=== PATIENT | male | born 1945 | race Caucasian/White ===

== ENCOUNTER 2018-01-04 06:36 | Emergency (ER) | payer MEDICARE, OTHER, SELFPAY ==
[2017-10-09 14:18] VITALS: BMI 22.9
[2018-01-04 06:45] VITALS: BP 135/71; PULSE 91; RESP 28; TEMP 36.6; O2SAT 98; BMI 22.8
--- NOTE | 2018-01-04 06:51 | DI.RAD.S_ITS ---
PROCEDURE: XR CHEST 1V INDICATIONS: short of breath TECHNIQUE: One view of the chest was acquired. COMPARISON: [facility], CR, XR CHEST 2V, 10/06/2017, 12:40. [facility], CR, XR CHEST 1V, 10/09/2017, 9:20. FINDINGS: Surgical changes and devices: None. Lungs and pleura: No pleural effusions or pneumothorax. A calcified granuloma is present at the left lung base. Mediastinum: Mediastinal contours appear normal. Heart size is normal. Bones and chest wall: No suspicious bony lesions. Overlying soft tissues appear unremarkable. IMPRESSION: 1. Left basilar granuloma. No acute cardiopulmonary findings. Dictated by: Lynda Carnes M.D. on 01/04/2018 at 8:17 Approved by: Lynda Carnes M.D. on 01/04/2018 at 8:19
[2018-01-04] MEDS: methylPREDNISolone 125 MG/2 ML VIAL IV (06:52)
[2018-01-04 07:00] VITALS: BP 112/63; PULSE 91; RESP 22; O2SAT 96
--- NOTE | 2018-01-04 07:02 | ED_ITS ---
HPI - SOB/Dyspnea General Chief Complaint: Shortness of Breath/Dyspnea Time Seen by Provider: 01/04/18 06:44 Source: patient Mode of arrival: ambulatory Limitations: no limitations History of Present Illness Patient is a 72-year-old male with a history of COPD on 2 L of O2 at home at baseline here for evaluation of shortness of breath. Patient states that it started last evening at approximately midnight. States he had problems sleeping. No chest pain. 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 Patient states he has been feeling weak at home. No fevers. Related Data Home Medications Medication Instructions Recorded Confirmed albuterol sulfate 2 puff INHALATION QID PRN 10/06/17 10/09/17 albuterol sulfate 3 ml INHALATION QID PRN 10/06/17 10/09/17 alfuzosin 10 mg PO DAILY 10/06/17 10/09/17 olodaterol 2 puff INHALATION QDAY 10/06/17 10/09/17 omeprazole 20 mg PO BID 10/06/17 10/09/17 Previous Rx's Medication Instructions Recorded azithromycin 250 mg PO DAILY #2 tab 10/13/17 oseltamivir [Tamiflu] 75 mg PO BID #4 cap 10/13/17 prednisone 10 mg PO TAPER #32 tab-cap 10/13/17 prednisone 40 mg PO DAILY #10 tab 01/04/18 Allergies Allergy/AdvReac Type Severity Reaction Status Date / Time No Known Drug Allergies Allergy Verified 10/06/17 12:35 Review of Systems Constitutional Denies fatigue, Denies fever(s) and Denies headache(s) ENT Ears, Nose, Mouth, and Throat: Denies headache(s) Cardiovascular Denies chest pain, Denies syncope, Denies palpitations, Reports dyspnea and Reports dyspnea on exertion Respiratory Denies change in phlegm color, Reports cough, Reports dyspnea, Reports dyspnea on exertion and Reports wheezing Gastrointestinal Gastrointestinal: Denies abdominal pain, Denies diarrhea, Denies nausea and Denies vomiting Genitourinary Denies dysuria Musculoskeletal Denies myalgias and Denies arthralgias Integumentary/Breasts Denies lesions, Denies rash and Denies wounds Neurologic Denies confusion, Denies syncope and Denies headache(s) Psychiatric Denies confusion Endocrine Denies fatigue and Denies palpitations Hematologic/Lymphatic Denies easy bleeding and Denies easy bruising Allergic/Immunologic Reports wheezing PFSH Medical History COPD (chronic obstructive pulmonary disease) (Acute) Social History household members: none Smoking Status: Former smoker alcohol intake: current Comment: Reviewed patient's past medical surgical social and family history Exam Initial Vital Signs Initial Vital Signs: Vital Signs Temperature 97.9 F 01/04/18 06:45 Pulse Rate 91 H 01/04/18 06:45 Respiratory Rate 28 H 01/04/18 06:45 Blood Pressure 135/71 H 01/04/18 06:45 Pulse Oximetry 98 01/04/18 06:45 Const General: cooperative, well developed, well groomed and No acute distress Orientation: alert, awake and oriented x3 HENMT Head: normal to inspection and normocephalic Resp Effort & Inspection: not labored, no retractions and tachypneic Auscultation: rhonchi and wheezes Cardio Rate: regular rate Rhythm: regular rhythm Pulses: radial pulses present GI Inspection: normal to inspection Skin Lesions: no lesions Rashes: no rashes Neuro General: alert, awake and oriented x3 Cognition: normal cognition Speech: speech normal Extrem General: normal to inspection and capillary refill normal Psych Appearance: grossly normal and well kempt Course Orders Ordered: ED Orders 01/04/18 Comprehensive Metabolic Panel Stat 01/04/18 06:30 B Type Natriuretic Peptide Stat Complete Blood Count AUTO DIFF Stat Magnesium Stat Procalcitonin Stat Troponin & CK Cardiac Panel Stat 01/04/18 06:50 Consult to Respiratory Therapy Evaluate & Treat EKG-12 Lead Stat 01/04/18 06:51 XR chest 1V Stat 01/04/18 07:25 Lactate (Lactic Acid) Stat 01/04/18 07:35 Blood Culture Stat Discontinued Medications Albuterol/Ipratropium (Duoneb) 3 ml INH NOW ONE Stop: 01/04/18 06:51 Last Admin: 01/04/18 07:16 Dose: 3 ml Methylprednisolone (Solu-Medrol 125 Mg Vial) 125 mg IV NOW ONE Stop: 01/04/18 06:51 Last Admin: 01/04/18 06:52 Dose: 125 mg Vital Signs - 8 hr 01/04/18 06:45 01/04/18 07:22 Temperature 97.9 F Pulse Rate 91 H 86 Respiratory Rate 28 H 22 Blood Pressure 135/71 H Pulse Oximetry 98 96 MDM - SOB/Dyspnea Lab Data Attestation: I reviewed the patient's lab results. Result diagrams: 01/04/18 06:30 01/04/18 Unknown Lab Results 01/04/18 01/04/18 01/04/18 Range/Units 06:30 06:30 06:30 WBC 7.9 (4.5-11.0) X10^3/uL RBC 4.20 L (4.5-5.9) X10^6/uL Hgb 13.0 L (13.5-17.5) g/dL Hct 39.0 L (41-53) % MCV 92.8 (80-100) fL MCH 30.9 (26-34) PG MCHC 33.3 (30-36) % RDW 14.5 (11.6-14.8) % Plt Count 193 (150-400) X10^3/uL Neut % (Auto) 52.2 (50-75) % Lymph % (Auto) 33.8 (25-40) % Coleman % (Auto) 7.6 (3-14) % Eos % (Auto) 5.6 H (2-4) % Baso % (Auto) 0.8 (0-2) % Neut # (Auto) 4100 (2337-3703) /uL Sodium (137-145) mmol/L Potassium (3.4-5.1) mmol/L Chloride (98-107) mmol/L Carbon Dioxide (22-32) mmol/L BUN (9-20) mg/dL Creatinine (0.66-1.25) mg/dL Estimated GFR (>60) mL/min BUN/Creatinine Ratio (6-22) Glucose (80-110) mg/dL Calcium (8.4-10.2) mg/dL Magnesium 2.1 (1.6-2.3) mg/dL Total Bilirubin (0.2-1.3) mg/dL AST (17-59) IU/L ALT (21-72) IU/L Alkaline Phosphatase (38-126) U/L Total Creatine Kinase 134 (55-170) U/L CK-MB (CK-2) 2.65 H (<2.37) ng/mL CK-MB (CK-2) Rel Index 2.0 (1.5-5.0) % Troponin I < 0.012 (0.01-0.034) ng/mL B-Natriuretic Peptide < 100.0 (<100) Total Protein (6.3-8.2) g/dL Albumin (3.5-5.0) g/dL Globulin (1.7-4.1) g/dL Albumin/Globulin Ratio (1.0-2.8) Procalcitonin < 0.05 (<0.5) ng/mL 01/04/18 Range/Units Unknown WBC (4.5-11.0) X10^3/uL RBC (4.5-5.9) X10^6/uL Hgb (13.5-17.5) g/dL Hct (41-53) % MCV (80-100) fL MCH (26-34) PG MCHC (30-36) % RDW (11.6-14.8) % Plt Count (150-400) X10^3/uL Neut % (Auto) (50-75) % Lymph % (Auto) (25-40) % Coleman % (Auto) (3-14) % Eos % (Auto) (2-4) % Baso % (Auto) (0-2) % Neut # (Auto) (1260-7539) /uL Sodium 143 (137-145) mmol/L Potassium 4.1 (3.4-5.1) mmol/L Chloride 105 (98-107) mmol/L Carbon Dioxide 29 (22-32) mmol/L BUN 9 (9-20) mg/dL Creatinine 1.00 (0.66-1.25) mg/dL Estimated GFR > 60.0 (>60) mL/min BUN/Creatinine Ratio 9.0 (6-22) Glucose 114 H (80-110) mg/dL Calcium 9.4 (8.4-10.2) mg/dL Magnesium (1.6-2.3) mg/dL Total Bilirubin 0.4 (0.2-1.3) mg/dL AST 30 (17-59) IU/L ALT 20 L (21-72) IU/L Alkaline Phosphatase 97 (38-126) U/L Total Creatine Kinase (55-170) U/L CK-MB (CK-2) (<2.37) ng/mL CK-MB (CK-2) Rel Index (1.5-5.0) % Troponin I (0.01-0.034) ng/mL B-Natriuretic Peptide (<100) Total Protein 7.3 (6.3-8.2) g/dL Albumin 4.1 (3.5-5.0) g/dL Globulin 3.2 (1.7-4.1) g/dL Albumin/Globulin Ratio 1.3 (1.0-2.8) Procalcitonin (<0.5) ng/mL Imaging Data Chest x-ray: Attestation: I personally reviewed and interpreted this imaging study as follows: My impression: No focal infiltrates Normal size heart No pneumothorax ECG Data Prior ECG tracings: not available for review Interpretation: Sinus rhythm Ventricular rate 80 for Left posterior fascicular block Normal QRS Normal QTC No ST T wave changes MDM Narrative Medical decision making narrative: Patient received steroids and 2 DuoNeb here in the emergency department. He states that he felt much better. Upon re- evaluation his wheezing had completely resolved. He is at his baseline respiratory status. He is not having any fevers no increase in sputum production. He does have a nebulizer at home with also inhalers. Will send home with a couple days of steroids. Patient was given return precautions. He is going to call his primary doctor. He expressed understanding and agreement with plan. Discharge Plan Departure Patient Disposition: Home, Self-Care Clinical Impression: Acute exacerbation of chronic obstructive pulmonary disease (COPD) Instructions: Chronic Obstructive Pulmonary Disease (Alternative Therapy), Chronic Obstructive Pulmonary Disease Activity Restrictions/Additional Instructions: Recommend that you take the steroids as directed. I also recommend that for the next 24 hr you use your nebulizer at home every 4 hr. If you find that you need to use the nebulizer sooner than every 4 hr you need to return to the emergency department for evaluation like we discussed. Call your primary care doctor for a follow-up. Return to the emergency department for any worsening symptoms. Prescriptions: New prednisone 20 mg tablet 40 mg PO DAILY Qty: 10 RF: 0 No Action albuterol sulfate 90 mcg/actuation Hfa Aerosol Inhaler 2 puff Inhalation QID PRN (Reason: Shortness Of Breath) RF: 0 albuterol sulfate 2.5 mg /3 mL (0.083 %) Solution For Nebulization 3 ml Inhalation QID PRN (Reason: Shortness Of Breath) RF: 0 alfuzosin 10 mg Tablet Extended Release 24 Hr 10 mg PO DAILY RF: 0 olodaterol 2.5 mcg/actuation Mist 2 puff Inhalation QDAY RF: 0 omeprazole 20 mg capsule 20 mg PO BID RF: 0 oseltamivir [Tamiflu] 75 mg Capsule 75 mg PO BID Qty: 4 RF: 0 azithromycin 250 mg tablet 250 mg PO DAILY Qty: 2 RF: 0 prednisone 10 mg tablet 10 mg PO TAPER Qty: 32 RF: 0
[2018-01-04 07:05] LABS: Add Manual Diff / Slide Review NO; Basophils Percent Auto 0.8 % (0-2); Eosinophils Percent Auto 5.6 % (2-4); Lymphocytes Percent Auto 33.8 % (25-40); Mean Corpuscular HGB Conc 33.3 % (30-36); Mean Corpuscular Hemoglobin 30.9 PG (26-34); Mean Corpuscular Volume 92.8 fL (80-100); Monocytes Percent Auto 7.6 % (3-14); Neutrophils Absolute Auto 4100 /uL (3000-5900); Neutrophils Percent Auto 52.2 % (50-75); Platelet Count 193 X10^3/uL (150-400); Red Cell Distribution Width 14.5 % (11.6-14.8); White Blood Cell Count 7.9 X10^3/uL (4.5-11.0)
[2018-01-04 07:08] LABS: Creatine Kinase 134 U/L (55-170); Magnesium 2.1 mg/dL (1.6-2.3)
[2018-01-04] MEDS: ALBUTEROL/IPRATROPIUM 3 ML AMPUL INH (07:16)
[2018-01-04 07:21] LABS: Alanine Aminotransferase 20 IU/L (21-72); Albumin 4.1 g/dL (3.5-5.0); Albumin Globulin Ratio 1.3 (1.0-2.8); Alkaline Phosphatase 97 U/L (38-126); Aspartate Aminotransferase 30 IU/L (17-59); Bilirubin Total 0.4 mg/dL (0.2-1.3); Blood Urea Nitrogen 9 mg/dL (9-20); Calcium 9.4 mg/dL (8.4-10.2); Carbon Dioxide 29 mmol/L (22-32); Chloride 105 mmol/L (98-107); Estimated Glomerular Filt Rate > 60.0 mL/min (>60); Globulin 3.2 g/dL (1.7-4.1); Glucose 114 mg/dL (80-110); HEMOLYSIS 16 (0-50); Potassium 4.1 mmol/L (3.4-5.1); Sodium 143 mmol/L (137-145); Total Protein 7.3 g/dL (6.3-8.2)
[2018-01-04 07:21] LABS: Troponin I < 0.012 ng/mL (0.01-0.034)
[2018-01-04 07:22] VITALS: PULSE 86; RESP 22; O2SAT 96
[2018-01-04 07:23] LABS: Creatine Kinase MB 2.65 ng/mL (<2.37)
[2018-01-04 07:26] LABS: B Type Natriuretic Peptide < 100.0 (<100)
[2018-01-04 07:38] LABS: Procalcitonin < 0.05 ng/mL (<0.5)
[2018-01-04 07:45] VITALS: BP 123/61; PULSE 87; RESP 20; O2SAT 96
[2018-01-04 07:56] LABS: Lactate (Lactic Acid) 1.9 mmol/L (0.7-2.1)
[2018-01-04 08:00] VITALS: BP 140/56; PULSE 87; RESP 20; O2SAT 97
[2018-01-04 08:34] VITALS: O2SAT 92
--- NOTE | 2018-01-04 08:35 | PC.NURSE ---
I walked pt out to lobby with a continuous pulse ox on his finger, without oxygen he dropped to 86%, after sitting for a few minutes he popped back up to 94%. pt desats with minimal activity. pt waiting for his son to pick him up.
== END 2018-01-04 08:37 | disposition home or self-care (01) ==
PROVIDERS: Emergency Medicine; Emergency Provider Emergency Medicine
DX: J44.1 Chronic obstructive pulmonary disease with (acute) exacerbation (principal)
CPT/HCPCS: 36415; 36591; 71045; 80053; 82550; 82553; 83605; 83735; 83880; 84145; 84484; 85025; 87040; 93005; 94640; 96374; 99284; 99285; J2930

== ENCOUNTER 2018-01-31 02:30 | Inpatient (IN) | payer MEDICARE, OTHER, SELFPAY ==
[2017-10-09 14:18] VITALS: BMI 22.9
[2018-01-31] VITALS (16 sets, daily range): BP systolic 110–158; BP diastolic 67–82; PULSE 89–126; RESP 16–22; TEMP 36.5–37.1; O2SAT 90–97; BMI 22.9
--- NOTE | 2018-01-31 02:27 | DI.RAD.S_ITS ---
PROCEDURE: XR CHEST 1V INDICATIONS: cough, SOB, hypoxia TECHNIQUE: One view of the chest was acquired. COMPARISON: None. FINDINGS: Surgical changes and devices: None. Lungs and pleura: No pleural effusions or pneumothorax. There is mild hyperinflation. No definite focal infiltrate... Mediastinum: Mediastinal contours appear normal. Heart size is normal. Bones and chest wall: No suspicious bony lesions. Overlying soft tissues appear unremarkable. IMPRESSION: No acute cardiopulmonary pathology. Mild hyperinflation. Dictated by: Ismael Smith M.D. on 01/31/2018 at 9:41 Approved by: Ismael Smith M.D. on 01/31/2018 at 9:41
[2018-01-31] MEDS: methylPREDNISolone 125 MG/2 ML VIAL IV (02:41)
[2018-01-31] MEDS: SODIUM CHLORIDE 0.9% 1,000 ML 150 ML IV ×2 (02:46→20:12)
[2018-01-31 02:49] LABS: Add Manual Diff / Slide Review NO; Basophils Percent Auto 0.7 % (0-2); Eosinophils Percent Auto 3.8 % (2-4); Hematocrit 36.9 % (41-53); Hemoglobin 12.1 g/dL (13.5-17.5); Lymphocytes Percent Auto 41.2 % (25-40); Mean Corpuscular HGB Conc 32.8 % (30-36); Mean Corpuscular Hemoglobin 30.2 PG (26-34); Monocytes Percent Auto 8.2 % (3-14); Neutrophils Absolute Auto 3600 /uL (3000-5900); Neutrophils Percent Auto 46.1 % (50-75); Platelet Count 270 X10^3/uL (150-400); Red Blood Cell Count 4.01 X10^6/uL (4.5-5.9); White Blood Cell Count 7.7 X10^3/uL (4.5-11.0)
[2018-01-31 02:55] LABS: Blood Urea Nitrogen 14 mg/dL (9-20); Calcium 8.7 mg/dL (8.4-10.2); Carbon Dioxide 28 mmol/L (22-32); Chloride 107 mmol/L (98-107); Creatine Kinase 92 U/L (55-170); Estimated Glomerular Filt Rate > 60.0 mL/min (>60); Glucose 121 mg/dL (80-110); HEMOLYSIS < 15 (0-50); Potassium 4.2 mmol/L (3.4-5.1); Sodium 145 mmol/L (137-145)
--- NOTE | 2018-01-31 02:57 | ED_ITS ---
HPI - SOB/Dyspnea General Chief Complaint: Shortness of Breath/Dyspnea Stated Complaint: COPD Time Seen by Provider: 01/31/18 02:32 Source: patient and EMS Mode of arrival: EMS Limitations: no limitations History of Present Illness A 72-year-old male with longstanding history of COPD whom uses 3 L by nasal cannula at home. EMS arrived and found him with pulse ox of 80% on 3 L with multiple signs of respiratory distress. Patient was placed on a non-rebreather and transported for further evaluation and stabilization. He states that he was in his normal state of health until earlier in the day when he started developing increasing shortness of breath. He denies any recent illness such as runny nose, fever or chills. He does have increasing cough which is occasionally productive of yellow sputum. She denies any chest pain nor nausea or vomiting MD Complaint: shortness of breath and cough Onset (ago): hour(s) Severity: moderate Consistency/Duration: constant Relieving factors: oxygen Exacerbating factors: movement, coughing and deep breaths Known history of: COPD Associated symptoms: denies other symptoms Treatment prior to arrival: oxygen and bronchodilator Related Data Home oxygen amount: 3 liters Home Medications Medication Instructions Recorded Confirmed albuterol sulfate 2 puff INHALATION QID PRN 10/06/17 10/09/17 albuterol sulfate 3 ml INHALATION QID PRN 10/06/17 10/09/17 alfuzosin 10 mg PO DAILY 10/06/17 10/09/17 olodaterol 2 puff INHALATION QDAY 10/06/17 10/09/17 omeprazole 20 mg PO BID 10/06/17 10/09/17 Previous Rx's Medication Instructions Recorded azithromycin 250 mg PO DAILY #2 tab 10/13/17 oseltamivir [Tamiflu] 75 mg PO BID #4 cap 10/13/17 prednisone 10 mg PO TAPER #32 tab-cap 10/13/17 prednisone 40 mg PO DAILY #10 tab 01/04/18 Allergies Allergy/AdvReac Type Severity Reaction Status Date / Time No Known Drug Allergies Allergy Verified 10/06/17 12:35 Review of Systems Review of Systems All systems reviewed & are unremarkable except as noted in HPI and below Constitutional Denies chills, Denies fever(s), Denies lethargy and Denies weakness Eyes Denies change in vision, Denies eye discharge, Denies irritation and Denies loss of vision ENT Ears, Nose, Mouth, and Throat: Denies change in voice, Denies neck pain and Denies sore throat Cardiovascular Denies chest pain, Denies irregular heart rhythm, Denies lightheadedness, Denies palpitations, Reports dyspnea, Reports dyspnea on exertion and Denies orthopnea Respiratory Reports cough, Reports dyspnea, Reports dyspnea on exertion and Reports wheezing Gastrointestinal Gastrointestinal: Denies abdominal pain, Denies change in bowel habits, Denies diarrhea, Denies nausea and Denies vomiting Genitourinary Denies hematuria, Denies flank pain, Denies urinary incontinence and Denies urinary urgency Musculoskeletal Denies neck pain Integumentary/Breasts Denies pruritus, Denies erythema, Denies rash and Denies wounds Neurologic Denies confusion, Denies loss of vision and Denies weakness Psychiatric Denies anxiety, Denies confusion, Denies depression, Denies homicidal ideation and Denies suicidal ideation Endocrine Denies palpitations Hematologic/Lymphatic Denies easy bruising Allergic/Immunologic Reports wheezing PFSH Medical History COPD (chronic obstructive pulmonary disease) (Acute) Social History household members: none Smoking Status: Former smoker alcohol intake: current Exam Narrative Exam Narrative: 72-year-old male in respiratory distress with use of accessory muscles, tachypneic and conversational dyspnea Initial Vital Signs Initial Vital Signs: Vital Signs Temperature 98.8 F 01/31/18 02:31 Pulse Rate 126 H 01/31/18 02:31 Respiratory Rate 22 01/31/18 02:31 Blood Pressure 110/77 01/31/18 02:31 Pulse Oximetry 95 01/31/18 02:31 Const General: cooperative, well developed and acute distress Nutritional Appearance: well nourished Orientation: alert, awake, oriented x3 and not confused HENMT Head: normocephalic and atraumatic Ears: external ears normal and TM's normal bilaterally Nose: external nose normal and No nasal discharge Face and sinus: sinuses nontender, face symmetric, no sinus tenderness and No dry mucous membranes Mouth: oral mucosae normal and moist mucous membranes Teeth and gingiva: dentition normal Throat: tonsils normal and uvula midline Eyes General: appearance normal, both eyes and all related structures Eyelids: eyelids normal Conjunctivae: conjunctivae normal Sclera: sclerae normal Pupils: PERRL EOM: EOM intact bilaterally Chest Chest: normal inspection of the chest Resp Effort & Inspection: audible wheezes, cough, labored, nasal flaring, pursed lip breathing, respiratory distress, tachypneic, uses accessory muscles and prolonged expiratory phase Auscultation: diminished lung sounds and rhonchi Cardio Rate: bradycardic Rhythm: regular rhythm GI Inspection: non-distended Palpation: soft, no hepatosplenomegaly, No guarding, No pulsatile mass and No tender Auscultation: normal bowel sounds Back/Spine/Pelvis Back: No CVA tenderness Cervical Spine: cervical ROM normal and No pain with cervical ROM Thoracic/Lumbar Spine: thoracic and lumbar spine normal to inspection Skin General: no rashes or lesions noted, No jaundice and No petechiae Neuro General: alert, oriented x3, gait normal and no focal motor deficits Speech: speech normal Psych Appearance: well kempt Mental Status: mental status grossly normal Attitude: cooperative Thought Content: normal and suicidality Judgment: judgment good Course Decision to Admit Date: 01/31/18 Decision to Admit time: 02:28 Orders Ordered: ED Orders 01/31/18 02:26 Consult to Respiratory Therapy Evaluate & Treat EKG-12 Lead Stat 01/31/18 02:27 XR chest 1V Stat 01/31/18 02:30 B Type Natriuretic Peptide Stat Basic Metabolic Panel Stat Complete Blood Count AUTO DIFF Stat Procalcitonin Stat Troponin & CK Cardiac Panel Stat 01/31/18 02:32 Consult to Respiratory Therapy Evaluate & Treat Arterial Blood Gas Stat EKG-12 Lead Stat 01/31/18 02:44 Blood Culture Stat 01/31/18 02:50 Lactate (Lactic Acid) Stat Sodium Chloride (Normal Saline 0.9%) 1,000 mls @ 150 mls/hr IV CONT RASHEED Last Admin: 01/31/18 02:46 Dose: 150 mls/hr Discontinued Medications Albuterol/Ipratropium (Duoneb) 3 ml INH NOW ONE Stop: 01/31/18 02:27 Albuterol/Ipratropium (Duoneb) 3 ml INH NOW ONE Stop: 01/31/18 02:33 Methylprednisolone (Solu-Medrol 125 Mg Vial) 125 mg IV NOW ONE Stop: 01/31/18 02:27 Last Admin: 01/31/18 02:41 Dose: 125 mg Reevaluation(s) Reevaluation #1: Patient showing marked improvement after a few bronchodilators , Solu-Medrol and antibiotics. Heart right down to the low 100s / upper 90s now Consultations Consultation #1: Dr. Moreland happy to accept this patient into inpatient status Time: 03:45 Vital Signs - 8 hr 01/31/18 02:31 01/31/18 02:48 Temperature 98.8 F 98.8 F Pulse Rate 126 H 126 H Respiratory Rate 22 22 Blood Pressure 110/77 110/77 Pulse Oximetry 95 95 MDM - SOB/Dyspnea Differential Diagnosis Likely acute exacerbation of chronic obstructive airways disease, congestive heart failure, community acquired pneumonia, asthma with exacerbation, pulmonary embolism and other Medical Records Attestation: I reviewed the patient's medical records. Lab Data Attestation: I reviewed the patient's lab results. Result diagrams: 01/31/18 02:30 01/31/18 02:30 Lab Results 01/31/18 01/31/18 01/31/18 Range/Units 02:30 02:30 02:30 WBC 7.7 (4.5-11.0) X10^3/uL RBC 4.01 L (4.5-5.9) X10^6/uL Hgb 12.1 L (13.5-17.5) g/dL Hct 36.9 L (41-53) % MCV 92.0 (80-100) fL MCH 30.2 (26-34) PG MCHC 32.8 (30-36) % RDW 14.0 (11.6-14.8) % Plt Count 270 (150-400) X10^3/uL Neut % (Auto) 46.1 L (50-75) % Lymph % (Auto) 41.2 H (25-40) % Posey % (Auto) 8.2 (3-14) % Eos % (Auto) 3.8 (2-4) % Baso % (Auto) 0.7 (0-2) % Neut # (Auto) 3600 (4286-8016) /uL Sodium 145 (137-145) mmol/L Potassium 4.2 (3.4-5.1) mmol/L Chloride 107 (98-107) mmol/L Carbon Dioxide 28 (22-32) mmol/L BUN 14 (9-20) mg/dL Creatinine 1.00 (0.66-1.25) mg/dL Estimated GFR > 60.0 (>60) mL/min BUN/Creatinine Ratio 14.0 (6-22) Glucose 121 H (80-110) mg/dL Lactate (0.7-2.1) mmol/L Calcium 8.7 (8.4-10.2) mg/dL Total Creatine Kinase 92 (55-170) U/L Troponin I < 0.012 (0.01-0.034) ng/mL B-Natriuretic Peptide 49.9 (<100) Procalcitonin < 0.05 (<0.5) ng/mL 01/31/18 Range/Units 02:50 WBC (4.5-11.0) X10^3/uL RBC (4.5-5.9) X10^6/uL Hgb (13.5-17.5) g/dL Hct (41-53) % MCV (80-100) fL MCH (26-34) PG MCHC (30-36) % RDW (11.6-14.8) % Plt Count (150-400) X10^3/uL Neut % (Auto) (50-75) % Lymph % (Auto) (25-40) % Posey % (Auto) (3-14) % Eos % (Auto) (2-4) % Baso % (Auto) (0-2) % Neut # (Auto) (7277-8761) /uL Sodium (137-145) mmol/L Potassium (3.4-5.1) mmol/L Chloride (98-107) mmol/L Carbon Dioxide (22-32) mmol/L BUN (9-20) mg/dL Creatinine (0.66-1.25) mg/dL Estimated GFR (>60) mL/min BUN/Creatinine Ratio (6-22) Glucose (80-110) mg/dL Lactate 2.4 H (0.7-2.1) mmol/L Calcium (8.4-10.2) mg/dL Total Creatine Kinase (55-170) U/L Troponin I (0.01-0.034) ng/mL B-Natriuretic Peptide (<100) Procalcitonin (<0.5) ng/mL ABG Data ABG results: Attestation: I personally reviewed and interpreted this ABG as follows: Interpretation: respiratory acidosis with metabolic compensation Imaging Data Chest x-ray: My impression: NAP Discharge Plan Departure Patient Disposition: Admitted As Inpatient Clinical Impression: Acute and chronic respiratory failure with hypoxia, COPD with acute exacerbation Admit Date/Time: 01/31/18 03:37 Admit Provider: Francisco Moreland
[2018-01-31 03:08] LABS: Troponin I < 0.012 ng/mL (0.01-0.034)
[2018-01-31 03:18] LABS: B Type Natriuretic Peptide 49.9 (<100)
[2018-01-31 03:27] LABS: Lactate (Lactic Acid) 2.4 mmol/L (0.7-2.1)
[2018-01-31 03:40] LABS: Procalcitonin < 0.05 ng/mL (<0.5)
[2018-01-31 04:01] LABS: HCO3 ABG 27 mmol/L (23-27); Oxygen Saturation ABG 93 % (95-100); PCO2 ABG 50.1 mmHg (35-45); PO2 ABG 73 mmHg (80-105); TCO2 ABG 28 mmol/L (23-27); pH ABG 7.33 (7.35-7.45)
[2018-01-31 04:03] LABS: Fractionated Inspired Oxygen 0.32
--- NOTE | 2018-01-31 04:08 | PC.NURSE ---
saline to continue on floor
--- NOTE | 2018-01-31 05:47 | PC.NURSE ---
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 Pt arrived onto unit at 0355 via stretcher into room 226. Pt able to ambulate from stretcher to bed with SBA, quite short of breath. Pt A&OX4, oriented to call light and high fall risk precautions. Denies pain. VSS, afebrile, O2 sat 95% on 3L NC, which pt states is at his baseline. AE diminished throughout lung smith, Expiratory wheezes more pronounced to middle and upper lobes posteriorly. Has intermittent moist cough with no sputum production at this time. Placed on continuous O2 monitoring for now. BLE edema RLE more than LLE, 1-2+ non pitting edema. Pt states this is his normal at home, no calf tenderness, or redness. States he was supposed to be made an appointment by his PCP to be fitted with compression stockings, which has not happened yet. OOB with SBA, pt using walker, steady gait, quite short of breath ambulating from bed to BR and back. O2 sat decreased to 90% on 3L during ambulation. Once in resting position, pt recovered to 95% after a few minutes. Pt also states that he has a CPAP machine at home that he hasn't been using as he is waiting on a oxygen adapter that is supposed to arrive at his house this Thursday. No other voiced concerns, call light within reach.
[2018-01-31] MEDS: methylPREDNISolone 125 MG/2 ML VIAL 60 MG IV ×3 (06:23→21:33)
[2018-01-31 07:15] LABS: Reflexed Lactate in 2 Hours Y
[2018-01-31 07:49] LABS: Lactate 2HR (Lactic Acid Rflx) 2.3 mmol/L (0.7-2.1)
--- NOTE | 2018-01-31 08:34 | P.HP_ITS ---
History of Present Illness Date Patient Seen: 01/31/18 Time Patient Seen: 08:28 Chief complaint: COPD Narrative: This very pleasant gentleman was admitted from home early this morning with history of acute-onset shortness of breath he went to bed feeling fairly okay knees usual baseline level but in the middle of the night when he turned over from 1 side to the other is suddenly became short of breath and could not get his breath he tried getting up sitting up using his nebulizer but the things can get any better and so he called the EMS and came to the ER He gives a history of being in the hospital 3 or 4 times within the last year where is prior to coming up from [facility] [place] where he used to get attacks once a year Nicolette is this and it has become more frequent since he has been up here He normally used to drive self around but lately can't even drive much to get his groceries [id number] has some with that He denies any fever chills rigors but reports bringing up purulent sputum on and off; he had influenza type a and type B as well as pneumonia in October of this year since then he has not really recovered he uses nebulized bronchodilators at least 3 4 times a day now he also has a steroid inhalers Patient History Medical History COPD (chronic obstructive pulmonary disease) (Acute) Bilateral leg cramps (Acute) Chronic anemia (Acute) Essential tremor (Acute) Surgical History H/O sinus surgery (Acute) Status post right foot surgery (Acute) Family & Social History Family History: Reviewed 01/31/18 by Keira Hernandes MD Social History: household members none Prior Living Arrangements House Safety & Behavioral: Feels Safe in Current Yes Environment Been Physically Hurt or No Threatened By a Person Suicidal Ideation Description None Suicide Plan Description No Plan Tobacco & Substance use: Tobacco type cigarettes Smoking Status Former smoker alcohol intake current alcohol intake frequency holiday/special occasion Substance Use Type does not use Meds Home Medications Medication Instructions Recorded Confirmed Type albuterol sulfate 2 puff INHALATION QID PRN 10/06/17 01/31/18 History albuterol sulfate 3 ml INHALATION QID PRN 10/06/17 01/31/18 History alfuzosin 10 mg PO DAILY 10/06/17 01/31/18 History olodaterol 2 puff INHALATION QDAY 10/06/17 01/31/18 History omeprazole 20 mg PO BID 10/06/17 01/31/18 History azithromycin 250 mg PO DAILY PRN 01/31/18 01/31/18 History magnesium 250 mg PO DAILY 01/31/18 01/31/18 History potassium chloride 20 meq PO DAILY 01/31/18 History prednisone 10 mg PO DAILY PRN 01/31/18 01/31/18 History Allergies Allergy/AdvReac Type Severity Reaction Status Date / Time [id number]-Swr Reductase Allergy Intermediate Cramping Verified 01/31/18 04:10 Inhibitor of the Muscles Review of Systems Review of Systems Does not have any cardiac history and 12 point review of the other systems negative for acute symptoms Exam Vital Signs (past 8 hours): - 01/31/18 02:31 01/31/18 02:48 01/31/18 04:15 Temperature 98.8 F 98.8 F 98.2 F Pulse Rate 126 H 126 H 102 H Respiratory Rate 22 22 20 Blood Pressure 110/77 110/77 135/71 H Pulse Oximetry 95 95 95 01/31/18 04:30 01/31/18 05:10 01/31/18 05:15 Temperature Pulse Rate Respiratory Rate Blood Pressure Pulse Oximetry 95 90 L 95 Oxygen Delivery Method Nasal Cannula Oxygen Flow Rate 3 Const General: cooperative, healthy appearing, comfortable and well developed Orientation: alert, awake and oriented x3 HENMT Head: normal to inspection Nose: external nose normal Face and sinus: normal facial exam Mouth: oral mucosae normal Eyes General: appearance normal, both eyes and all related structures Eyelids: eyelids normal Conjunctivae: conjunctivae normal Sclera: sclerae normal Pupils: PERRL EOM: EOM intact bilaterally Neck Neck: normal visual inspection and No JVD Thyroid: thyroid normal Resp Effort & Inspection: normal respiratory effort, able to speak in complete sentences and no respiratory distress Auscultation: clear to auscultation bilaterally and bronchovesicular breath sounds Cardio Rate: regular rate Rhythm: regular rhythm Heart Sounds: S1 normal and S2 normal GI Inspection: normal to inspection Palpation: soft and no hepatosplenomegaly Skin General: no rashes or lesions noted Neuro General: alert, awake, oriented x3 and no meningeal signs Cranial Nerves: CN's II-XI intact bilaterally Cognition: normal cognition Speech: speech normal Motor: muscle tone normal throughout Extrem Other: nat 1+ pitting edema Psych Appearance: grossly normal Mood: congruent mood Attitude: cooperative Thought Content: normal Judgment: judgment good Objective Labs Result Diagrams: 01/31/18 02:30 01/31/18 02:30 Labs: Laboratory Results - last 24 hr 01/31/18 01/31/18 01/31/18 02:30 02:30 02:30 WBC 7.7 RBC 4.01 L Hgb 12.1 L Hct 36.9 L MCV 92.0 MCH 30.2 MCHC 32.8 RDW 14.0 Plt Count 270 Neut % (Auto) 46.1 L Lymph % (Auto) 41.2 H Bee % (Auto) 8.2 Eos % (Auto) 3.8 Baso % (Auto) 0.7 Neut # (Auto) 3600 ABG pH ABG pCO2 ABG pO2 ABG HCO3 ABG Total CO2 ABG O2 Saturation ABG Base Excess FiO2 Sodium 145 Potassium 4.2 Chloride 107 Carbon Dioxide 28 BUN 14 Creatinine 1.00 Estimated GFR > 60.0 BUN/Creatinine Ratio 14.0 Glucose 121 H Lactate Calcium 8.7 Total Creatine Kinase 92 Troponin I < 0.012 B-Natriuretic Peptide 49.9 Procalcitonin < 0.05 01/31/18 01/31/18 01/31/18 02:47 02:50 07:00 WBC RBC Hgb Hct MCV MCH MCHC RDW Plt Count Neut % (Auto) Lymph % (Auto) Bee % (Auto) Eos % (Auto) Baso % (Auto) Neut # (Auto) ABG pH 7.33 L ABG pCO2 50.1 H ABG pO2 73 L ABG HCO3 27 ABG Total CO2 28 H ABG O2 Saturation 93 L ABG Base Excess 1.0 FiO2 0.32 Sodium Potassium Chloride Carbon Dioxide BUN Creatinine Estimated GFR BUN/Creatinine Ratio Glucose Lactate 2.4 H 2.3 H Calcium Total Creatine Kinase Troponin I B-Natriuretic Peptide Procalcitonin Assessment & Plan Plan: Assessment/Plan Narrative: 1. Acute hypoxic respiratory failure O2 supplement currently on nasal cannula normally used to 2 L but lately has increased to 3 L continuously 24 hr prior to this admission 2. Acute hypercapnic respiratory failure 3. O2 dependent COPD with acute exacerbation possibly infective continue bronchodilators the systemic steroids antibiotics 4 Possible cor pulmonale with right heart failure and leg edema Quality VTE Deep Vein Thrombosis/Pulmonary Embolism Present on Admission: No
[2018-01-31] MEDS: levoFLOXacin 750 MG/150 ML PIGGYBACK 100 MG IV (09:12)
[2018-01-31] MEDS: DOCUSATE 100 MG CAPSULE PO ×2 (09:13→20:19)
[2018-01-31] MEDS: ENOXAPARIN 40 MG/0.4 ML SYRINGE SUBCUT (09:13)
[2018-01-31] MEDS: ALBUTEROL/IPRATROPIUM 3 ML AMPUL INH ×2 (11:43→17:40)
--- NOTE | 2018-01-31 14:12 | PC.NURSE ---
Am shift Pt reporting significant improvement to air movement this shift. Decreased SOB, still has extended recovery with any activity. Continues on 3L via NC Rt into see Pt t/o shift. Moving air much better after treatments, Spo2 on 3L is 94+% The 3L is also home regime.NS @ 150 to R FA, Occasioanl cough noted. Afebrile.
[2018-01-31] MEDS: CALCIUM CARBONATE 500 MG TAB 1000 MG PO ×2 (14:44→20:48)
--- NOTE | 2018-01-31 15:33 | CM.DANOTE ---
Patient is a 72 year old male who was admitted on 01/31/18 for COPD. Pt has MCR for insurance and [facility] EMR was reviewed. Per MD, pt currently on increased oxygen and not stable for d/c today. SW met bedside with pt and explained role and pt confirms that he lives at home in [place] alone although he has two local sons who live in [place] and one son works in [place] and they provide assist whenever needed. Pt is typically independent at baseline and has home oxygen through [facility] although pt states he has become increasingly in need of assist from family lately due to fatigue. Pt states his son Florentin is his DPOA and Florentin's has been helping the pt with grocery shopping and light cleaning. SW inquired about other supportive services and pt states he has begun considering private pay ski lift attendant and information on Life Alert due to his recent hospitalizations for COPD exacerbation and pneumonia. Plan: SW to follow closely for further identified discharge planning needs and likely need for PT eval to determine if pt is safe for return home alone when medically stable. SW to follow tomorrow to provide the pt with community resources for housekeeping and Life Alert. TANNER Vences Discharge Planning/Care Management CM Discharge Assessment Start: 01/31/18 15:24 Freq: Status: Active Protocol: Document 01/31/18 15:24 (Rec: 01/31/18 15:27 [id number]) Discharge Planning Assessment Assigned Acetaldehyde Converter Operator TANNER DPOA/Assigned Designee Name [address] Advance Directives? Yes Advance Directives on File No History Provided By Patient Medical Record Has Patient been admitted in last 30 No days? Prior Living Arrangements House Household Members none Type of transporation used prior to Drives own vehicle admit Comment Pt has needed increased help with ADL's but typically was independent before recent decline. Independent with ADL's Yes Is patient alert and oriented? Yes Needs Assistance With Home Chores / Shopping Caregiver for Another No Community Services used prior to Oxygen Therapy admission: Comment Pt has home oxygen through [facility] DME Already Rented / Owned FWW / Walker Cane Oxygen Comment D/C needs unclear at this time . Comment Pt has had recent decline in his independence and has required increased support. Discharge Plan Home Transportation Arrangement Wesley Aldana Updated in Patient Room with Yes name and ext. # of Acetaldehyde Converter Operator Review Status In Process Next Review Type Continued Stay Review
[2018-02-01] VITALS (9 sets, daily range): BP systolic 119–145; BP diastolic 52–78; PULSE 74–102; RESP 14–20; TEMP 36.3–36.6; O2SAT 94–97
[2018-02-01] MEDS: SODIUM CHLORIDE 0.9% 1,000 ML 150 ML IV (00:08)
--- NOTE | 2018-02-01 02:03 | PC.NURSE ---
Addendum entered by Deana Villanueva R.N. 02/01/18 04:27: Blood culture came back positive for staph. notified and new order for vancomycin ordered. Pt put on contact precautions Original Note: shift note met with pt at start of shift. AOx3. Pain 0/10. States he has had poor sleep and continues to have an intermittent cough with mild improvement. No sputum noted at this time. 96% on 2L nasal canula when awake. Coarse wheezes on expiration bilaterally throughout. Call light within reach.
[2018-02-01 03:25] LABS: Enterococcus species Not Detected (Not Detect); Listeria monocytogenes Not Detected (Not Detect); Methicillin-resistant gene Detected (Not Detect); Streptococcus agalactiae (Gr B Not Detected (Not Detect); Streptococcus species Not Detected (Not Detect)
[2018-02-01 03:26] LABS: Acinetobacter baumannii Not Detected (Not Detect); Candida albicans Not Detected (Not Detect); Candida glabrata Not Detected (Not Detect); Candida krusei Not Detected (Not Detect); Candida parapsilosis Not Detected (Not Detect); Candida tropicalis Not Detected (Not Detect); E. coli Not Detected (Not Detect); Enterobacter cloacae complex Not Detected (Not Detect); Enterobacteriaceae species Not Detected (Not Detect); Haemophilus influenzae Not Detected (Not Detect); Neisseria meningitidis Not Detected (Not Detect); Proteus species Not Detected (Not Detect); Pseudomonas aeruginosa Not Detected (Not Detect); Serratia marcescens Not Detected (Not Detect); Streptococcus pneumonia Not Detected (Not Detect); Streptococcus pyogenes (Gr A) Not Detected (Not Detect)
[2018-02-01 03:28] LABS: Staphylococcus species Detected (Not Detect)
[2018-02-01] MEDS: VANCOMYCIN 1,500 MG in SODIUM CHLORIDE 0.9% 500 ML 333.333 ML IV (04:33)
[2018-02-01 05:00] LABS: Add Manual Diff / Slide Review NO; Basophils Percent Auto 0.7 % (0-2); Hematocrit 34.9 % (41-53); Lymphocytes Percent Auto 9.9 % (25-40); Mean Corpuscular HGB Conc 34.3 % (30-36); Mean Corpuscular Volume 90.4 fL (80-100); Monocytes Percent Auto 2.4 % (3-14); Neutrophils Absolute Auto 7200 /uL (3000-5900); Platelet Count 262 X10^3/uL (150-400); Red Blood Cell Count 3.86 X10^6/uL (4.5-5.9); Red Cell Distribution Width 14.2 % (11.6-14.8); White Blood Cell Count 8.3 X10^3/uL (4.5-11.0)
[2018-02-01 05:13] LABS: BUN Creatinine Ratio 16.7 (6-22); Blood Urea Nitrogen 15 mg/dL (9-20); Carbon Dioxide 30 mmol/L (22-32); Chloride 109 mmol/L (98-107); Estimated Glomerular Filt Rate > 60.0 mL/min (>60); Glucose 139 mg/dL (80-110); HEMOLYSIS < 15 (0-50); Potassium 4.1 mmol/L (3.4-5.1); Sodium 147 mmol/L (137-145)
[2018-02-01] MEDS: methylPREDNISolone 125 MG/2 ML VIAL 60 MG IV (06:12)
[2018-02-01] MEDS: TAMSULOSIN 0.4 MG CAPSULE PO (08:59)
[2018-02-01] MEDS: ENOXAPARIN 40 MG/0.4 ML SYRINGE SUBCUT (08:59)
[2018-02-01] MEDS: DOCUSATE 100 MG CAPSULE PO ×2 (09:00→21:02)
[2018-02-01] MEDS: levoFLOXacin 750 MG/150 ML PIGGYBACK 100 MG IV (09:00)
[2018-02-01] MEDS: ALBUTEROL/IPRATROPIUM 3 ML AMPUL INH ×3 (09:00→19:29)
[2018-02-01] MEDS: CALCIUM CARBONATE 500 MG TAB 1000 MG PO (09:01)
--- NOTE | 2018-02-01 11:17 | CM.DPC ---
DCP/continued: Reviewed chart. Patient remains hospitalized with COPD exacerbation and MRSA in blood. Met with patient explained CM/SW role. Patient resting comfortably in bed with [address] at time of visit. Patient alert and oriented and reports that he resides alone in [place]. Patient reports that he currently does not use any DME for ambulation but does use home 02 provided by [facility]. Patient drives locally on regular basis. Patient has neighbors and friends that assist with meals on occasion. Patient denies any d/c planning needs at this time. Spoke with RN and patient re: PT/OT evaluations. Both aware and agreeable. Asked MD and both obtained and are pending. Patient reports that previously he went to pulmonary rehab as outpatient for management of his COPD. Unfortunately, his visits with insurance ran until he can be seen by pulmonary. Patient has appointment in February in [place]. Patient hopes to be able to continue outpatient therapy for COPD after he establishes with pulmonary. Patient has Medicare prime but reports that the [facility] DPOA is patient's youngest son Florentin. Patient aware that CM team will continue to follow for d/c planning needs. White board in room updated. P: Anticipate home when medically stable. PT/OT evaluations currently pending. TANNER Hilliard
--- NOTE | 2018-02-01 12:20 | OT.IP.TRT ---
Occupational Therapy Treatment Note M3 OT- IP Subjective and Pain Start: 02/01/18 12:17 Freq: Status: Active Protocol: Document 02/01/18 12:18 [facility] (Rec: 02/01/18 12:20 [facility] [email or web address]) OT- Subjective Occupational Therapy Visit Type Type Administrative Note Visit Start Time 12:00 Visit Stop Time 12:15 Total Visit Minutes 15 Notes Pt just finished with nursing for a shower and now eating. Able to get information for pt regarding home set up and equipment at home. Therefore to see pt tomorrow for OT eval .
[2018-02-01] MEDS: SODIUM CHLORIDE 0.9% 1,000 ML 50 ML IV (12:40)
--- NOTE | 2018-02-01 12:48 | PT.IPTN ---
Physical Therapy Treatment Note Subjective Physical Therapy Visit Type Type Patient Refusal Physical Therapy Visit Comments Patient Comments Pt reports being too tired, just wants to rest today.
--- NOTE | 2018-02-01 13:43 | OT.IP.EVAL ---
Current Diagnoses Chronic obstructive pulmonary disease with (acute) exacerbation (01/31/18) Past Medical History (Last Reviewed 01/31/18 @ 08:31 by Keira Hernandes MD) COPD (chronic obstructive pulmonary disease) (Acute) Bilateral leg cramps (Acute) Chronic anemia (Acute) Essential tremor (Acute) Surgical History (Last Reviewed 01/31/18 @ 08:31 by Keira Hernandes MD) H/O sinus surgery (Acute) Status post right foot surgery (Acute) Occupational Therapy Inpatient Evaluation/Re-Eval M1 PT/OT-IP Prior Functional Status Start: 02/01/18 12:17 Freq: NEEDED Status: Active Protocol: Document 02/01/18 13:22 [facility] (Rec: 02/01/18 13:42 [facility] [id number]) Medical Review Prior Functional Status Medical History Reviewed Yes Diet/Fluid Consistency Regular Thin Liquids Communication ind. Mobility and Gait Pt states independent with no device and occasionally used his cane, pt would heavily lean on shopping carts when shopping. Activities of Daily Living and IADL's Pt's daughter in law assisting and pt looking to hire sketch liner. Prior Functional Level (Other details) Pt states at home uses 3L of o2. Social History Household Members none Living Arrangements House Number of Floors (Floors) One Floor Number of Stairs To Enter/Railing? One step to porch with rails and threshold to get into the house. Home Environment Standard Height Toilet Tub/Shower Doors Home Equipment Straight Cane Construction Grip Employment Status Retired Additional Social History Comment Son and DIL also lives in [place] and assist when they can. RIZWAN is a school bus operator and will not be able to assist as much once school starts. Pt also looking into getting Life Alert. Pt looking into pulmonary rehab but awaiting appointment with pulmonogist next month. M2 OT-IP Current Condition Start: 02/01/18 12:17 Freq: Status: Active Protocol: Document 02/01/18 13:22 [facility] (Rec: 02/01/18 13:42 [facility] [email or web address]) Occupational Therapy Current Condition Current Condition Evaluation Date 02/01/18 Treatment Diagnosis COPD Diagnosis Onset Date 01/31/18 M3 OT- IP Subjective and Pain Start: 02/01/18 12:17 Freq: Status: Active Protocol: Document 02/01/18 13:22 [facility] (Rec: 02/01/18 13:42 [facility] [email or web address]) OT- Subjective Occupational Therapy Visit Type Type Re-Evaluation Visit Start Time 12:35 Visit Stop Time 13:05 Total Visit Minutes 30 Notes Approached pt after lunch and agreed to get up and complete OT eval. M4 OT- IP ADL's Start: 02/01/18 12:17 Freq: Status: Active Protocol: Document 02/01/18 13:22 [facility] (Rec: 02/01/18 13:42 [facility] [email or web address]) OT HHE-[id number]-[id number] General Evaluation Self-Feeding Ability Independent OT ADL-Grooming General Evaluation Grooming Ability Standby Assistance Areas Needing Assistance Retrieving/Set-up of Grooming Items Comments OT Grooming Comments ABle ot stand with FWW for all grooming needs O2 on 2L from 89-94%. Pt getting SOb and only able to tolerate standing for 4 minutes before having to sit down. OT ADL-Oral Care General Eval Oral Care Ability Independent OT ADL-Dressing Comments OT Dressing Comments Not able to assess, AUTOMOTIVE PARTS INTERPRETER states assisted pt to put on his socks after the shower. OT ADL-Bathing Comments OT Bathing Comments Per AUTOMOTIVE PARTS INTERPRETER, pt had to sit while showering and needing assist for back and legs as pt getting tired. Pt states wears his O2 for showering at home. Discussed due to tight and small space of tub/shower with doors and having a bathtub shelf/seat may be beneficial to help conserve his energy while showering. M5 OT- IP IADL's Start: 02/01/18 12:17 Freq: Status: Active Protocol: Document 02/01/18 13:22 [facility] (Rec: 02/01/18 13:42 [facility] [email or web address]) OT-Instrumental Activities of Daily Living Deficits IADL Deficits Identified No Deficits Home Safety Awareness Awareness of Need for Assistance at Home Good Awareness Ability to Problem Solve Emergency Able to Problem Solve Situations Home Safety Comments Spoke of getting a tall stool in the kitchen use during meals or dishes. Meal Preparation Meal Preparation Comments Pt goes out to eat or has frozen meals and snacks throughout the day. Tower Switch Operator Tower Switch Operator Comments Family assisting. M6 OT- IP Functional Cognition Start: 02/01/18 12:17 Freq: Status: Active Protocol: Document 02/01/18 13:22 [facility] (Rec: 02/01/18 13:42 [facility] [email or web address]) Cognitive Factors Limiting Selfcare Function Cognitive Ability Level of Alertness Alert Patient Orientation Name Age Birthday Month Date Year Day of Week Place Situation Attention Span Ability Capable of Focused Attention Capable of Sustained Attention Ability to Follow Commands Able to Follow Multi-Step Commands Memory Description No Deficits Noted Safety Awareness Underestimates Need for Assistance Problem Solving Ability Needs Assist to Identify Solutions Cognitive Comments Cognitive Assessment Comments Pt needing education for reminders and information for energy conservation. Pt tends to want to complete tasks versus taking a break before getting too tired. OT- Vision and Hearing OT- Hearing Assessment OT- Hearing Assessment WFL M7 OT- IP Mobility and Balance Start: 02/01/18 12:17 Freq: Status: Active Protocol: Document 02/01/18 13:22 [facility] (Rec: 02/01/18 13:42 [facility] [email or web address]) OT-Transfer Assessment Sit to and From Stand Sit to and from Stand Standby Assistance Transfers Transfer Ability Standby Assistance Technique Transfer Destination Chair Devices Transfer Assistive Devices Gait Belt Front Wheeled Walker Comments Mobility Comments MOD I with walker and SBA while pt walking backwards and dragging FWW, pt states does not need to use FWW. Please see PT eval for most appropriate device for pt . OT- Balance Assessment Sitting Balance and Reactions Static Sitting Balance Ability Normal Dynamic Sitting Balance Ability Normal Standing Balance and Reactions Static Standing Balance Ability Normal M8 OT- IP Objective Assessments Start: 02/01/18 12:17 Freq: Status: Active Protocol: Document 02/01/18 13:22 [facility] (Rec: 02/01/18 13:42 [facility] [email or web address]) OT Gross Range of Motion Upper Extremity Range of Motion Assessment Within Functional Limits OT Strength Upper Extremity Strength Assessment Within Functional Limits OT-Muscle Tone Assessment Muscle Tone WNL Yes M9 OT- IP Assessment and Plan Start: 02/01/18 12:17 Freq: Status: Active Protocol: Document 02/01/18 13:22 [facility] (Rec: 02/01/18 13:42 [facility] [email or web address]) OT Summary Assessment and Plan Potential Rehabilitation Potential Excellent Analytic Complexity at Evaluation Low Summary OT Impairments Strength Balance Functional Mobility Toileting Bathing Progress Towards Goals Progressing Toward Goals Slow Progress due to Activity Tolerance Assessment Summary Pt low complexity and main barrier in SOB and now having an infection and tiring easily . Pt Goals Grooming Goal Independent Dressing Goal Independent Toileting Goal Independent Bathing Goal Standby Assistance Toilet Transfer Goal Independent Shower Transfer Goal Independent Patient/Caregiver Education Goal Demonstrate Energy Conservation and Pacing Days to Meet Goals 5 Frequency of Treatment Frequency Of Treatment Once a Day Treatment Plan OT Treatment Plan ADL Training IADL Training Patient/Family Education Discharge Planning Other Treatment Recommendations and Next Pt to state energy Treatment Focus conservation strategies learned and what to incorporate at home. Discharge Recommendations OT Discharge Recommendations Home with Assistance Other Discharge Recommendations Pulmonary Rehab Home Equipment Needs bathtub seat, FWW
--- NOTE | 2018-02-01 13:53 | P.PN_ITS ---
Subjective Date Patient Seen: 02/01/18 Time Patient Seen: 10:53 Interval history: ADMITTED WITH ACUTE ONSET SHORTNESS OF BREATH WHILE TURNING OVER IN BED IN THE MIDDLE THE NIGHT HAS UNDERLYING COPD HE IS ACUTE EXACERBATION OF THE BECOME MORE FREQUENT 1 SINCE HE HAS BEEN HERE FROM [facility] TODAY HE FEELS BETTER FAR BREATHING IS CONCERNED DOES NOT BRING UP ANY PHLEGM HOWEVER HIS BLOOD HAS GROWN STAPH COCCUS SPECIES IN 1 OF THE 2 BOTTLES STILL WAITING FOR THE IDENTITY Exam Vital Signs (past 8 hours): - 02/01/18 07:00 02/01/18 07:40 02/01/18 09:03 Temperature 97.5 F L Pulse Rate 86 Respiratory Rate 14 Blood Pressure 142/78 H Pulse Oximetry 96 94 96 02/01/18 12:48 Temperature 97.6 F Pulse Rate 102 H Respiratory Rate 16 Blood Pressure 119/52 L Pulse Oximetry 97 Fraction of Inspired Oxygen 32 Oxygen Delivery Method Nasal Cannula Oxygen Flow Rate 2 Const General: cooperative, healthy appearing, comfortable and well developed Orientation: alert, awake and oriented x3 HENMT Head: normal to inspection Ears: hearing grossly normal bilaterally Nose: external nose normal Face and sinus: normal facial exam Mouth: oral mucosae normal Eyes Eyelids: eyelids normal Conjunctivae: conjunctivae normal Sclera: sclerae normal Pupils: PERRL EOM: EOM intact bilaterally Neck Neck: normal visual inspection, full ROM and No JVD Thyroid: thyroid normal Resp Effort & Inspection: normal respiratory effort, able to speak in complete sentences, no respiratory distress and no use of accessory muscles Auscultation: bronchovesicular breath sounds and rhonchi (SCATTERED NURA) Cardio Rate: regular rate Rhythm: regular rhythm Heart Sounds: S1 normal and S2 normal GI Inspection: normal to inspection Palpation: soft and no hepatosplenomegaly Skin General: no rashes or lesions noted Neuro General: alert, awake and oriented x3 Cranial Nerves: CN's II-XI intact bilaterally Cognition: normal cognition Speech: speech normal Gait: normal gait Motor: muscle tone normal throughout Extrem General: normal to inspection and full ROM Psych Affect: irritable affect Attitude: cooperative Thought Process: normal Thought Content: normal Judgment: judgment good Objective Labs Result Diagrams: 02/01/18 04:46 02/01/18 04:46 Labs: Laboratory Results - last 24 hr 01/31/18 02/01/18 02/01/18 02:50 04:46 04:46 WBC 8.3 RBC 3.86 L Hgb 12.0 L Hct 34.9 L MCV 90.4 MCH 31.0 MCHC 34.3 RDW 14.2 Plt Count 262 Neut % (Auto) 87.0 H D Lymph % (Auto) 9.9 L D [place] % (Auto) 2.4 L Eos % (Auto) 0.0 L Baso % (Auto) 0.7 Neut # (Auto) 7200 H Sodium 147 H Potassium 4.1 Chloride 109 H Carbon Dioxide 30 BUN 15 Creatinine 0.90 Estimated GFR > 60.0 BUN/Creatinine Ratio 16.7 Glucose 139 H Calcium 9.0 A. baumannii (PCR) Not detected Lupe albicans (PCR) Not detected C. glabrata (PCR) Not detected C. krusei (PCR) Not detected C. parapsilosis (PCR) Not detected C. tropicalis (PCR) Not detected Enterobacteriac sp PCR Not detected E. cloacae complex PCR Not detected Enterococcus sp PCR Not detected E. coli (PCR) Not detected H. influenzae (PCR) Not detected Klebsiella oxytoca PCR Not detected Klebsiella pneumoniae Not detected List. monocytogenes PCR Not detected N. meningitidis (PCR) Not detected Proteus species (PCR) Not detected Serratia marcescens PCR Not detected Staphylococcus sp PCR Detected H Staph aureus (PCR) Not detected mecA-Methicil Res Gene Detected H Streptococcus sp PCR Not detected Group A Strep (PCR) Not detected Strep agalactiae (PCR) Not detected Strep pneumoniae (PCR) Not detected P. aeruginosa (PCR) Not detected [place]/B-Vanco Res Genes Not Reportable KPC-Carbap Res Gene PCR Not Reportable Assessment & Plan Plan: Assessment/Plan Narrative: 1. Acute hypoxic respiratory failure O2 supplement currently on nasal cannula normally used to 2 L but lately has increased to 3 L continuously 24 hr prior to this admission 2. Acute hypercapnic respiratory failure AT ADMISSION IMPROVING 3. O2 dependent COPD with acute exacerbation possibly infective continue bronchodilators SYSTEMIC STEROIDS and LEVAQUIN 4 Possible cor pulmonale with right heart failure and leg edema CONTINUOUS O2 RX SHOULD HELP 5.Staph Blood cult pos in one of two Bottles Identity pending started VANC for the same till making sure pathogenic or Not Time Spent With Patient Time with patient: 25 - 35 minutes Quality VTE Deep Vein Thrombosis/Pulmonary Embolism Present on Admission: No
--- NOTE | 2018-02-01 14:53 | PC.NURSE ---
DENIES ANY PAIN OR DISCOMFORT. SITTING UP IN CHAIR AT BEDSIDE. DENIES SOB AT THIS TIME. IV FLUIDS DECREASED TO 50ML/HR. OXYGEN SATS 96% 2L VIA CANNULA.
[2018-02-01] MEDS: ACETAMINOPHEN 325 MG TABLET 650 MG PO (15:50)
[2018-02-01] MEDS: OMEPRAZOLE 20MG CAPS 1 EACH PO (17:05)
[2018-02-01] MEDS: VANCOMYCIN 1,000 MG/200 ML FROZ.PIGGY 200 MG IV (17:06)
[2018-02-01] MEDS: BUDESONIDE 0.5 MG/2 ML NEB INH (19:29)
[2018-02-02] VITALS (15 sets, daily range): BP systolic 115–142; BP diastolic 66–78; PULSE 58–92; RESP 14–20; TEMP 36.4–37.3; O2SAT 95–98
[2018-02-02] MEDS: VANCOMYCIN 1,000 MG/200 ML FROZ.PIGGY 200 MG IV (04:25)
[2018-02-02 05:36] LABS: Add Manual Diff / Slide Review NO; Basophils Percent Auto 0.4 % (0-2); Eosinophils Percent Auto 0.1 % (2-4); Hematocrit 32.9 % (41-53); Hemoglobin 11.3 g/dL (13.5-17.5); Lymphocytes Percent Auto 14.5 % (25-40); Mean Corpuscular HGB Conc 34.5 % (30-36); Mean Corpuscular Hemoglobin 31.3 PG (26-34); Mean Corpuscular Volume 90.9 fL (80-100); Monocytes Percent Auto 7.4 % (3-14); Neutrophils Absolute Auto 6400 /uL (3000-5900); Neutrophils Percent Auto 77.6 % (50-75); Platelet Count 248 X10^3/uL (150-400); Red Blood Cell Count 3.62 X10^6/uL (4.5-5.9); Red Cell Distribution Width 14.5 % (11.6-14.8); White Blood Cell Count 8.3 X10^3/uL (4.5-11.0)
[2018-02-02] MEDS: OMEPRAZOLE 20MG CAPS 1 EACH PO ×2 (05:36→16:57)
[2018-02-02 05:40] LABS: BUN Creatinine Ratio 18.9 (6-22); Blood Urea Nitrogen 17 mg/dL (9-20); Calcium 8.7 mg/dL (8.4-10.2); Carbon Dioxide 30 mmol/L (22-32); Chloride 109 mmol/L (98-107); Estimated Glomerular Filt Rate > 60.0 mL/min (>60); Glucose 114 mg/dL (80-110); HEMOLYSIS < 15 (0-50); Potassium 3.4 mmol/L (3.4-5.1); Sodium 146 mmol/L (137-145)
[2018-02-02] MEDS: ALBUTEROL/IPRATROPIUM 3 ML AMPUL INH ×3 (07:25→17:46)
[2018-02-02] MEDS: BUDESONIDE 0.5 MG/2 ML NEB INH ×2 (07:25→17:46)
[2018-02-02] MEDS: predniSONE 20 MG TABLET 40 MG PO (09:13)
[2018-02-02] MEDS: DOCUSATE 100 MG CAPSULE PO ×2 (09:14→20:36)
[2018-02-02] MEDS: ENOXAPARIN 40 MG/0.4 ML SYRINGE SUBCUT (09:15)
[2018-02-02] MEDS: TAMSULOSIN 0.4 MG CAPSULE PO (09:15)
[2018-02-02] MEDS: CYANOCOBALAMIN (VITAMIN B-12) 500 MCG TABLET 1000 MCG PO (09:16)
--- NOTE | 2018-02-02 09:26 | PT.IIE ---
Current Diagnoses Chronic obstructive pulmonary disease with (acute) exacerbation (01/31/18) Surgical History (Last Reviewed 01/31/18 @ 08:31 by Keira Hernandes MD) H/O sinus surgery (Acute) Status post right foot surgery (Acute) Medical History (Last Reviewed 01/31/18 @ 08:31 by Keira Hernandes MD) COPD (chronic obstructive pulmonary disease) (Acute) Bilateral leg cramps (Acute) Chronic anemia (Acute) Essential tremor (Acute) Physical Therapy Inpatient Evaluation/Re-Eval Medical Review Prior Functional Status Medical History Reviewed Yes Diet/Fluid Consistency Regular Thin Liquids Communication ind. Mobility and Gait Pt states independent with no device and occasionally used his cane, pt would heavily lean on shopping carts when shopping. Activities of Daily Living and IADL's Pt's daughter in law assisting and pt looking to hire calender feeder. Prior Functional Level (Other details) Pt states at home uses 3L of o2. Social History Household Members none Living Arrangements House Number of Floors (Floors) One Floor Number of Stairs To Enter/Railing? One step to porch with rails and threshold to get into the house. 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 RIZWAN is a high school academic coach and will not be able to assist as much once school starts. Pt also looking into getting Life Alert. Pt looking into pulmonary rehab but awaiting appointment with[facility] next month. Physical Therapy Current Condition Current Condition Evaluation Date 02/02/18 Treatment Diagnosis SOB/COPD Onset Date ongoing since last hospitalization a month ago Subjective Physical Therapy Visit Type Type Initial Evaluation Visit Start Time 08:11 Visit Stop Time 09:10 Total Visit Minutes 59 Physical Therapy Visit Comments Patient Comments Pt reports feeling better today after sleeping well last night. Short Term Goals get strong enough to go back to ouonary rehab Therapy Pain Assessment Pain When Pain Assessed At Rest Pain Present Pain Present Denied Pain PT-Transfer Assessment Sit to and From Stand Sit to and from Stand Independent Equipment Transfer Assistive Device None Transfers Transfer Destination Chair Transfer Ability Level of Assist Independent Comments Mobility Comments bed mobility not performed as pt was already up in the chair . Gait Assessment Gait Gait Assistance Required: Independent Standby Assistance Distance (Feet) (feet) 140 Assistive Devices Assistive Device Gait Belt Gait Deviations General Gait Pattern Within Normal Limits Factors Limiting Gait Function Factors Limiting Gait Function Decreased Strength Respiratory Distress Comments Gait Comments Pt has no gait abnormalities except a slow gait speed, which is more limited by his pulmonary function/breathing than anything balance related. Pt is safe to be up in the room by himself but needs SBA for longer distances in the reid to help manage oxygen and monitor vitals. PT-Balance Assessment Sitting Balance and Reactions Static Sitting Balance Ability Normal Dynamic Sitting Balance Ability Normal Standing Balance and Reactions Static Standing Balance Ability Normal Dynamic Standing Balance Ability Good Device Used none Orientation Orientation/Cognition Level of Alertness Alert Orientation Name Age Birthday Month Date Year Day of Week Place Situation Language Function Ability No Deficits Noted Safety Awareness Understands Safety Issues Memory Description No Deficits Noted Gross Range of Motion Upper Extremity ROM Assessment Within Functional Limits Lower Extremity ROM Assessment Within Functional Limits Strength Comments Strength Comments not formally assessed, no focal strength deficits observed during mobility and ROM screen. Physical Therapy Treatment Other Treatments Other Treatment Performed Pt educated on use of pursed lip breathing technique during activity. PT Summary Assessment and Plan Potential Rehabilitation Potential Excellent Status of Condition at Evaluation Evolving Summary Impairments Strength Activity Tolerance Progress Towards Goals Progressing Toward Goals Assessment Summary Pt is doing well overall with mobility, no signs of imbalance. Pt is safe to be up in the room without assistance but needs SBA in the reid for longer walks to continue monitoring vitals. Pt will be safe to discharge home once medically ready, but recommend outpatient PT for increasing strength/endurance with transition to pulmonary rehab once he sees his merchandising execution manager next month. Pt in agreement with this plan. Goals Bed Mobility Goal Independent Transfer Goal Independent Gait Goal Independent Gait Distance 300 Days to Meet Goals 2 Frequency of Treatment Frequency Of Treatment Twice a Day Treatment Plan Physical Therapy Treatment Plan Gait Training Therapeutic Exercise Other Recommendations and Next Treatment HEP/strengthening exercises Focus for legs Recommendations To Nursing Amount of Assist Needed Standby Assistance Discharge Recommendations PT Discharge Recommendations Home Outpatient PT
--- NOTE | 2018-02-02 10:43 | CM.DPC ---
DCP/continued: Reviewed chart. Patient seen by therapy and current recommendation is home with outpatient therapy follow up. P: CM team to continue to follow closely for d/c planning needs. Anticipate home when stable. TANNER Hilliard
--- NOTE | 2018-02-02 13:30 | P.PN_ITS ---
Subjective Date Patient Seen: 02/02/18 Time Patient Seen: 13:27 Interval history: Patient is feeling a bit better but still short of breath. He has productive cough with white phelgm. He is not quite back to his baseline. Exam Vital Signs (past 8 hours): - 02/02/18 06:01 02/02/18 07:28 02/02/18 07:30 Temperature Pulse Rate Respiratory Rate Blood Pressure Pulse Oximetry 95 98 97 02/02/18 07:45 02/02/18 11:35 02/02/18 13:05 Temperature 97.6 F 97.6 F Pulse Rate 77 82 74 Respiratory Rate 16 16 14 Blood Pressure 134/68 H 115/70 Pulse Oximetry 96 97 97 Fraction of Inspired Oxygen 32 Oxygen Delivery Method Nasal Cannula Oxygen Flow Rate 2 Narrative Exam Narrative: Lungs: Decreased breath sounds CV: RRR nl Sl S2 Abd: Soft/ non tender/ non distended Ext: no edema Skin; no lesions Objective Labs Result Diagrams: 02/02/18 05:05 02/02/18 05:05 Labs: Laboratory Results - last 24 hr 02/02/18 02/02/18 05:05 05:05 WBC 8.3 RBC 3.62 L Hgb 11.3 L Hct 32.9 L MCV 90.9 MCH 31.3 MCHC 34.5 RDW 14.5 Plt Count 248 Neut % (Auto) 77.6 H Lymph % (Auto) 14.5 L [place] % (Auto) 7.4 Eos % (Auto) 0.1 L Baso % (Auto) 0.4 Neut # (Auto) 6400 H Sodium 146 H Potassium 3.4 Chloride 109 H Carbon Dioxide 30 BUN 17 Creatinine 0.90 Estimated GFR > 60.0 BUN/Creatinine Ratio 18.9 Glucose 114 H Calcium 8.7 Assessment & Plan (1) Acute and chronic respiratory failure ([id number]): Problem details: Will continue antibiotics, steroids, nebulizers Current visit: Yes Status: Acute Plan: Assessment/Plan Narrative: Anticipate discharge home tomorrow if breathing improved Quality VTE Deep Vein Thrombosis/Pulmonary Embolism Present on Admission: No
--- NOTE | 2018-02-02 14:54 | PC.NURSE ---
GI/Resp: Pt reports he is breathing easier. RT has been in to see patient. O2 has been left as it is, uses O2 at home. Pt has been up with PT and amb in the hallways, is safe and no hx of falls. IV is now out. (Infiltrated this am) PT has released patient to be up on his own now. Pt has been up and amb in room w/out diff. He is pleased with his progress and plans to d/c home in the am. Started oral steroids. Pt's only concern has been his bowels and he requested some ducolox. Dr. Merlos made aware and she will order him something. Pt denies any concerns this afternoon. Cont w/poc.
--- NOTE | 2018-02-02 15:37 | PT.IPTN ---
Current Diagnoses Chronic obstructive pulmonary disease with (acute) exacerbation (01/31/18) Acute and chronic respiratory failure, unspecified whether with hypoxia or hypercapnia (01/31/18) Physical Therapy Treatment Note Physical Therapy Current Condition Current Condition Evaluation Date 02/02/18 Treatment Diagnosis SOB/COPD Onset Date ongoing since last hospitalization a month ago Subjective Physical Therapy Visit Type Type Treatment Note Visit Start Time 14:55 Visit Stop Time 15:21 Total Visit Minutes 26 Physical Therapy Visit Comments Patient Comments Pt reports feeling even better than yesterday. Short Term Goals go home tomorrow Therapy Pain Assessment Pain Present Pain Present Denied Pain PT-Bed Mobility Assessment Supine to Sit Supine to Sit Independent Sit to Supine Sit to Supine Independent Scooting Scooting to Edge of Bed Independent PT-Transfer Assessment Sit to and From Stand Sit to and from Stand Independent Equipment Transfer Assistive Device None Transfers Transfer Destination Chair Transfer Ability Level of Assist Independent Gait Assessment Gait Gait Assistance Required: Independent Standby Assistance Distance (Feet) (feet) 280 Assistive Devices Assistive Device Gait Belt Gait Deviations General Gait Pattern Within Normal Limits Factors Limiting Gait Function Factors Limiting Gait Function Decreased Strength Respiratory Distress Comments Gait Comments Gait speed increased since last session, pt able to manage his own portable oxygen . Orientation Orientation/Cognition Level of Alertness Alert Orientation Name Age Birthday Month Date Year Day of Week Place Situation Language Function Ability No Deficits Noted Safety Awareness Understands Safety Issues Memory Description No Deficits Noted Gross Range of Motion Upper Extremity ROM Assessment Within Functional Limits Lower Extremity ROM Assessment Within Functional Limits Strength Comments Strength Comments not formally assessed, no focal strength deficits observed during mobility and ROM screen. Physical Therapy Treatment Other Treatments Other Treatment Performed HEP provided for LE strengthening in either supine , sitting, or standing. PT Summary Assessment and Plan Potential Rehabilitation Potential Excellent Status of Condition at Evaluation Stable Summary Impairments Strengt Activity Tolerance Progress Towards Goals Progressing Toward Goals Assessment Summary Pt's gait tolerance has improved even since last session, with SpO2 dropping only to 92% on 2L during the 300ft walk. Pt likely to discharge home tomorrow, pt is safe to do so and will still benefit outpatient PT once at home. Goals Bed Mobility Goal Independent Transfer Goal Independent Gait Goal Independent Gait Distance 300 Days to Meet Goals 2 Frequency of Treatment Frequency Of Treatment Twice a Day Treatment Plan Physical Therapy Treatment Plan Gait Training Therapeutic Exercise Other Recommendations and Next Treatment 1 more walk while monitoring Focus SpO2 Recommendations To Nursing Amount of Assist Needed Independent Discharge Recommendations PT Discharge Recommendations Home Outpatient PT
[2018-02-02] MEDS: BISACODYL 5 MG TABLET 10 MG PO (20:36)
--- NOTE | 2018-02-02 21:59 | PC.NURSE ---
pt sat up in chair most of the shift, maintained o2 sats in mid 90s on 2L. Pt has denied any sob this shift.
[2018-02-03] VITALS (7 sets, daily range): BP systolic 121–153; BP diastolic 68–76; PULSE 82–100; RESP 16–20; TEMP 36.6–36.8; O2SAT 93–98
[2018-02-03] MEDS: ALBUTEROL/IPRATROPIUM 3 ML AMPUL INH ×2 (05:33→11:17)
[2018-02-03] MEDS: BUDESONIDE 0.5 MG/2 ML NEB INH (05:33)
[2018-02-03] MEDS: OMEPRAZOLE 20MG CAPS 1 EACH PO (05:59)
--- NOTE | 2018-02-03 09:56 | P.DS_ITS ---
History of Present Illness Date Patient Seen: 02/03/18 Time Patient Seen: 09:55 Chief complaint: COPD Narrative: his very pleasant gentleman was admitted from home early this morning with history of acute-onset shortness of breath he went to bed feeling fairly okay knees usual baseline level but in the middle of the night when he turned over from 1 side to the other is suddenly became short of breath and could not get his breath he tried getting up sitting up using his nebulizer but the things can get any better and so he called the EMS and came to the ER He gives a history of being in the hospital 3 or 4 times within the last year where is prior to coming up from [facility] [place] in [place] where he used to get attacks once a year Nicolette is this and it has become more frequent since he has been up here He normally used to drive self around but lately can't even drive much to get his groceries [id number] has some with that He denies any fever chills rigors but reports bringing up purulent sputum on and off; he had influenza type a and type B as well as pneumonia in October of this year since then he has not really recovered he uses nebulized bronchodilators at least 3 4 times a day now he also has a steroid inhalers Discharge Providers Date of admission: 01/31/18 03:37 Consults: 01/31/18 04:05 Consult to Respiratory Therapy Evaluate & Treat Comment: nebs per protocol Physician Instructions: Evaluate and treat 02/01/18 11:16 Consult to Occupational Therapy Evaluate & Treat Comment: Physician Instructions: Evaluate and treat Consult to Physical Therapy Evaluate & Treat Comment: Physician Instructions: Evaluate and Treat Discharge provider: Jonna Merlos MD Summary Discharge Diagnosis: Acute on Chronic Respiratory Failure Acute Hypercapnic Respiratory Failure COPD Acute Bronchitis Hypernatremia GERD Hospital Course: Patient was admitted to the hospital for abrupt onset shortness of breath. He was found to be hypoxic. Patient received antibiotics, nebulizers, steroids and oxygen. He made slow but steady recovery and was deemed appropriate for discharge home. I offered the patient the opportunity to go to a [facility] unit for REHAB as he gets easily short of breath with minimal exertion. Patient declined but is willing to be followed by Home Health. He sees a PCP at the [facility] and will follow up as soon as possible after discharge. Status at Discharge Cognitive/behavioral status at discharge: at baseline Functional status at discharge: independent ambulation Overall status at discharge: patient is back to baseline Time Spent with Patient Less than 30 minutes Exam Vital Signs (past 8 hours): - 02/03/18 05:05 02/03/18 05:34 02/03/18 07:45 Temperature 97.9 F 98.2 F Pulse Rate 83 82 84 Respiratory Rate 16 20 20 Blood Pressure 153/68 H 121/72 H Pulse Oximetry 98 97 96 02/03/18 09:01 Temperature Pulse Rate Respiratory Rate Blood Pressure Pulse Oximetry 97 Fraction of Inspired Oxygen 28 Oxygen Delivery Method Nasal Cannula Oxygen Flow Rate 2 Narrative Exam Narrative: Lungs: decreased breath bilaterally CV: RRR nl S1S2 Abd: soft/non tender no HSM Ext: no edema Objective Labs Result Diagrams: 02/02/18 05:05 02/02/18 05:05 Discharge Plan Discharge Plan Discharge Problem: Acute and chronic respiratory failure with hypoxia, COPD with acute exacerbation Patient Disposition: Home Health Service Provider Discharge Instructions Diet: Low-sodium Activity: as tolerated Oxygen: 2 liters Discharge Data Attending Provider: Francisco Moreland Admit Date/Time: 01/31/18 03:37 Quality VTE Deep Vein Thrombosis/Pulmonary Embolism Present on Admission: No
[2018-02-03] MEDS: CYANOCOBALAMIN (VITAMIN B-12) 500 MCG TABLET 1000 MCG PO (10:00)
[2018-02-03] MEDS: DOCUSATE 100 MG CAPSULE PO (10:00)
[2018-02-03] MEDS: predniSONE 20 MG TABLET 40 MG PO (10:00)
[2018-02-03] MEDS: levoFLOXacin 250 MG TABLET 750 MG PO (10:00)
[2018-02-03] MEDS: TAMSULOSIN 0.4 MG CAPSULE PO (10:01)
--- NOTE | 2018-02-03 11:36 | CM.DPC ---
DCP/continued: Received notification in AM rounds that patient will be medically cleared to d/c home today. MD requesting patient have HH. Met with patient to discuss d/c planning and HH options. Patient reports that he plans to be homebound upon d/c from [facility] Order obtained for RN/PT. Patient reports that his PCP is Dr. Canales at [facility]. Patient provided with HH agency choices and has no preference in agencies. Therefore, BUSINESS SERVICES ADMINISTRATOR placed call to [facility], spoke with Meme. She confirms that they can accept referral. Orders, F2F, and d/c summary faxed. Name/number of agency provided to patient. Important Message from Medicare signed at approximately 10:55AM. P: Home today with [facility] for PT/RN. TANNER Hilliard
== END 2018-02-03 11:28 | disposition home health service (06) | DRG 190 ==
LOC: ED 03:30 → AC 03:38
PROVIDERS: Internal Medicine; Admitting Provider Internal Medicine; Emergency Provider Emergency Medicine; Visit Provider Internal Medicine
DX: J44.1 Chronic obstructive pulmonary disease with (acute) exacerbation (principal); J96.01 Acute respiratory failure with hypoxia; J96.02 Acute respiratory failure with hypercapnia; Z99.81 Dependence on supplemental oxygen; G25.0 Essential tremor; D64.9 Anemia, unspecified; J20.9 Acute bronchitis, unspecified; J44.0 Chronic obstructive pulmonary disease with (acute) lower respiratory infection; K21.9 Gastro-esophageal reflux disease without esophagitis
CPT/HCPCS: 36415; 36600; 71045; 80048; 81003; 82550; 82553; 82805; 83605; 83880; 84145; 84484; 85025; 87040; 87147; 87150; 87205; 93005; 93010; 94640; 94760; 94762; 96361; 96374; 97110; 97116; 97161; 97165; 97530; 97535; 99283; 99284; J1650; J1956; J2930; J3370

== ENCOUNTER 2018-02-21 17:29 | Emergency (ER) | payer MEDICARE, OTHER, SELFPAY ==
[2018-01-31 04:16] VITALS: BMI 22.9
[2018-02-21 18:20] VITALS: PULSE 100; RESP 20; O2SAT 95
[2018-02-21] MEDS: ALBUTEROL/IPRATROPIUM 3 ML AMPUL INH (18:24)
--- NOTE | 2018-02-21 18:25 | RT ---
Pt arrived v in resp. distress but quickly recovered once sitting
--- NOTE | 2018-02-21 18:26 | DI.RAD.S_ITS ---
PROCEDURE: XR CHEST 1V INDICATIONS: shortness of breath TECHNIQUE: One view of the chest was acquired. COMPARISON: [facility], CR, XR CHEST 1V, 01/31/2018, 2:41. FINDINGS: Surgical changes and devices: None. Lungs and pleura: Trace pulmonary radiopacities are present in the left midlung. The lungs are otherwise clear. No pleural effusion or pneumothorax. Mediastinum: Mediastinal contours appear normal. Heart size is normal. Bones and chest wall: No suspicious bony lesions. Overlying soft tissues appear unremarkable. IMPRESSION: Trace left midlung radiopacities. Differential considerations include early infection and atelectasis. Dictated by: Lynda Carnes M.D. on 02/21/2018 at 19:25 Approved by: Lynda Carnes M.D. on 02/21/2018 at 19:25
--- NOTE | 2018-02-21 18:27 | RT ---
Pt. arrived in resp. distress. Hx copd. BS very diminished bilat. o2 at 3.5lpm with spo2 at 98%. Weaned back to 2lpm Neb given with duoneb. pt. familiar with nebs and med. Post tx. BS still very diminished with slight exp. wheeze posteriorly. Pt. states improvement. Uses albuterol nebs and Stiolto respimat at home. 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
--- NOTE | 2018-02-21 18:39 | ED.CHESTPAIN ---
HPI - Chest Pain <PAULO Mcelroy - Last Filed: 02/21/18 22:42> General Chief Complaint: Chest Pain Stated Complaint: trouble breathing Time Seen by Provider: 02/21/18 18:03 Source: patient Mode of arrival: ambulatory Limitations: no limitations History of Present Illness HPI narrative: Patient presents with chief complaint of shortness of breath that started at two a.m.. He has a history of COPD with multiple admissions to this facility. He states he feels tightness in his epigastric area when he is having hard time breathing. He is on home O2 2-3 L at a time. He denies any fevers, complains of a slightly productive cough twice a day. He denies nausea vomiting diarrhea. He denies palpitations, lower leg edema, swelling of extremities. He has used his albuterol at home. He states when he was discharged, he was not given of long of a prednisone doses he was supposed to get. Related Data Home Medications Medication Instructions Recorded Confirmed albuterol sulfate 2 puff INHALATION QID PRN 10/06/17 01/31/18 albuterol sulfate 3 ml INHALATION QID PRN 10/06/17 01/31/18 alfuzosin 10 mg PO DAILY 10/06/17 01/31/18 olodaterol 2 puff INHALATION QDAY 10/06/17 01/31/18 omeprazole 20 mg PO BID 10/06/17 01/31/18 azithromycin 250 mg PO DAILY PRN 01/31/18 01/31/18 magnesium 250 mg PO DAILY 01/31/18 01/31/18 cyanocobalamin-cobamamide [B12] 1,000 mg SUBLINGUAL DAILY 02/01/18 02/01/18 Previous Rx's Medication Instructions Recorded budesonide [Pulmicort] 0.5 mg INH RTBID #30 ml 02/03/18 prednisone 20 mg PO BID #10 tab 02/03/18 prednisone 40 mg PO DAILY #10 tab 02/03/18 prednisone 40 mg PO DAILY 5 Days tab 02/21/18 Allergies Allergy/AdvReac Type Severity Reaction Status Date / Time Tvitfxf-[id number] Reductase Allergy Intermediate Cramping Verified 02/21/18 17:40 Inhibitor of the Muscles Review of Systems <PAULO Mcelroy - Last Filed: 02/21/18 22:42> Review of Systems GENERAL: Denies chills, fatigue, malaise, fever, sweats. HEENT: Denies sinus pain, ear pain, sore throat, difficulty swallowing, dizziness. RESPIRATORY: See HPI CARDIOVASCULAR: See HPI GASTROINTESTINAL: Denies nausea, vomiting, abdominal pain, diarrhea, constipation, melena. : Denies dysuria, frequency, incontinence, hematuria, urinary retention. MUSCULOSKELETAL: denies weakness, joint pain, or bony pain SKIN: Denies rash, skin lesions, or other NEUROLOGIC: Denies weakness, headache, numbness, change in speech, confusion, seizures, incoordination. PSYCHIATRIC: No concerning psychosocial issues. 12 point review of systems is negative except for those stated above Exam <LAURENCE Mcelroy-BC - Last Filed: 02/21/18 22:42> Narrative Exam Narrative: GENERAL: This is a well-nourished, well-developed patient, on oxygen in bed HEAD: Atraumatic. Normocephalic. No temporal or scalp tenderness. EYES: Pupils equal round and reactive. Extraocular motions intact. No scleral icterus. No injection or drainage. ENT: Nose without bleeding, purulent drainage or septal hematoma. Throat without erythema, tonsillar hypertrophy or exudate. Uvula midline. Airway patent. NECK: Trachea midline. No JVD or lymphadenopathy. Supple, nontender, no meningeal signs. CARDIOVASCULAR: Regular rate and rhythm without murmurs, gallops, or rubs. RESPIRATORY: Decreased to auscultation. Breath sounds equal bilaterally. Slight expiratory wheezes. No rales or rhonchi. Slight increased respiratory effort noted. Noted to be 1-2 word dyspnea upon arrival. GASTROINTESTINAL: Abdomen soft, non-tender, nondistended. No hepato-splenomegaly, or palpable masses. No guarding. Active bowel sounds all quadrants. No pulsatile mass. EXTREMITIES: No clubbing, cyanosis, or edema. No joint tenderness, effusion, or edema noted. BACK: Nontender without deformity or crepitance. No flank tenderness. NEURO: AOx3. SKIN: No rash or erythema. Initial Vital Signs Initial Vital Signs: Vital Signs Pulse Rate 100 H 02/21/18 18:20 Respiratory Rate 20 02/21/18 18:20 Pulse Oximetry 95 02/21/18 18:20 <Jose Juan Lion DO - Last Filed: 02/21/18 23:39> Initial Vital Signs Initial Vital Signs: Vital Signs Pulse Rate 100 H 02/21/18 18:20 Respiratory Rate 20 02/21/18 18:20 Pulse Oximetry 95 02/21/18 18:20 Course <LAURENCE Mcelroy-BC - Last Filed: 02/21/18 22:42> Orders Ordered: ED Orders 02/21/18 18:15 Amylase Stat B Type Natriuretic Peptide Stat Complete Blood Count AUTO DIFF Stat Comprehensive Metabolic Panel Stat Lactate (Lactic Acid) Stat Lipase Stat Magnesium Stat Partial Thromboplastin Time Stat Procalcitonin Stat Prothrombin Time INR Stat Troponin & CK Cardiac Panel Stat 02/21/18 18:25 Consult to Respiratory Therapy Evaluate & Treat 02/21/18 18:26 XR chest 1V Stat Discontinued Medications Albuterol/Ipratropium (Duoneb) 3 ml INH Q20M RASHEED Stop: 02/21/18 19:11 Last Admin: 02/21/18 19:31 Dose: Admin: 02/21/18 19:31 Dose: Admin: 02/21/18 18:24 Dose: 3 ml Methylprednisolone (Solu-Medrol 125 Mg Vial) 125 mg IV NOW ONE Stop: 02/21/18 19:45 Last Admin: 02/21/18 20:15 Dose: 125 mg A checked on the patient several times throughout his emergency department stay. He initially presented in respiratory distress, but quickly recovered after few nebulizer treatments by the respiratory therapist. He received a cardiac rule out, a chest x-ray, EKG. I did give him IV Solu-Medrol. Given his recent admission, I spoke with Dr. Desouza to evaluate him for admission. Dr Desouza encourage discharge home if possible. Given that the patient was able to ambulate on oxygen with maintaining his saturation levels, and remained hemodynamically stable the patient felt well enough to go home. Given the patient's productive cough, however to treat him with doxycycline in addition to prednisone for COPD exacerbation. However he declined the antibiotics at this time, stating he would follow up with his precipitation equipment tender or his primary care provider. Vital Signs - 8 hr 02/21/18 18:20 02/21/18 19:30 02/21/18 21:01 Pulse Rate 100 H 88 89 Respiratory Rate 20 18 18 Blood Pressure [Right Arm] 119/54 L 131/57 L Pulse Oximetry 95 95 95 <Jose Juan Lion DO - Last Filed: 02/21/18 23:39> Orders Ordered: ED Orders 02/21/18 18:15 Amylase Stat B Type Natriuretic Peptide Stat Complete Blood Count AUTO DIFF Stat Comprehensive Metabolic Panel Stat Lactate (Lactic Acid) Stat Lipase Stat Magnesium Stat Partial Thromboplastin Time Stat Procalcitonin Stat Prothrombin Time INR Stat Troponin & CK Cardiac Panel Stat 02/21/18 18:25 Consult to Respiratory Therapy Evaluate & Treat 02/21/18 18:26 XR chest 1V Stat Discontinued Medications Albuterol/Ipratropium (Duoneb) 3 ml INH Q20M RASHEED Stop: 02/21/18 19:11 Last Admin: 02/21/18 19:31 Dose: Admin: 02/21/18 19:31 Dose: Admin: 02/21/18 18:24 Dose: 3 ml Methylprednisolone (Solu-Medrol 125 Mg Vial) 125 mg IV NOW ONE Stop: 02/21/18 19:45 Last Admin: 02/21/18 20:15 Dose: 125 mg Vital Signs - 8 hr 02/21/18 18:20 02/21/18 19:30 02/21/18 21:01 Pulse Rate 100 H 88 89 Respiratory Rate 20 18 18 Blood Pressure [Right Arm] 119/54 L 131/57 L Pulse Oximetry 95 95 95 MDM - Chest Pain <PAULO Mcelroy - Last Filed: 02/21/18 22:42> Lab Data Attestation: I reviewed the patient's lab results. Result diagrams: 02/21/18 18:15 02/21/18 18:15 Lab Results 02/21/18 02/21/18 02/21/18 Range/Units 18:15 18:15 18:15 WBC 10.9 (4.5-11.0) X10^3/uL RBC 3.86 L (4.5-5.9) X10^6/uL Hgb 11.9 L (13.5-17.5) g/dL Hct 35.5 L (41-53) % MCV 91.8 (80-100) fL MCH 30.9 (26-34) PG MCHC 33.6 (30-36) % RDW 14.2 (11.6-14.8) % Plt Count 156 (150-400) X10^3/uL Neut % (Auto) 80.1 H (50-75) % Lymph % (Auto) 13.0 L (25-40) % [place] % (Auto) 4.6 (3-14) % Eos % (Auto) 1.5 L (2-4) % Baso % (Auto) 0.8 (0-2) % Neut # (Auto) 8700 H (8026-0426) /uL PT 12.1 (10.1-12.7) SECONDS INR 1.1 (0.9-1.3) APTT 31 (26.4-36.2) SECONDS Sodium (137-145) mmol/L Potassium (3.4-5.1) mmol/L Chloride (98-107) mmol/L Carbon Dioxide (22-32) mmol/L BUN (9-20) mg/dL Creatinine (0.66-1.25) mg/dL Estimated GFR (>60) mL/min BUN/Creatinine Ratio (6-22) Glucose (80-110) mg/dL Lactate (0.7-2.1) mmol/L Calcium (8.4-10.2) mg/dL Magnesium (1.6-2.3) mg/dL Total Bilirubin (0.2-1.3) mg/dL AST (17-59) IU/L ALT (21-72) IU/L Alkaline Phosphatase (38-126) U/L Total Creatine Kinase (55-170) U/L Troponin I (0.01-0.034) ng/mL B-Natriuretic Peptide 51.2 (<100) Total Protein (6.3-8.2) g/dL Albumin (3.5-5.0) g/dL Globulin (1.7-4.1) g/dL Albumin/Globulin Ratio (1.0-2.8) Amylase (30-110) U/L Lipase (23-300) U/L Procalcitonin < 0.05 (<0.5) ng/mL 02/21/18 02/21/18 02/21/18 Range/Units 18:15 18:15 18:15 WBC (4.5-11.0) X10^3/uL RBC (4.5-5.9) X10^6/uL Hgb (13.5-17.5) g/dL Hct (41-53) % MCV (80-100) fL MCH (26-34) PG MCHC (30-36) % RDW (11.6-14.8) % Plt Count (150-400) X10^3/uL Neut % (Auto) (50-75) % Lymph % (Auto) (25-40) % [place] % (Auto) (3-14) % Eos % (Auto) (2-4) % Baso % (Auto) (0-2) % Neut # (Auto) (5714-3992) /uL PT (10.1-12.7) SECONDS INR (0.9-1.3) APTT (26.4-36.2) SECONDS Sodium 148 H (137-145) mmol/L Potassium 4.4 (3.4-5.1) mmol/L Chloride 109 H (98-107) mmol/L Carbon Dioxide 28 (22-32) mmol/L BUN 16 (9-20) mg/dL Creatinine 1.00 (0.66-1.25) mg/dL Estimated GFR > 60.0 (>60) mL/min BUN/Creatinine Ratio 16.0 (6-22) Glucose 111 H (80-110) mg/dL Lactate (0.7-2.1) mmol/L Calcium 9.1 (8.4-10.2) mg/dL Magnesium 1.9 (1.6-2.3) mg/dL Total Bilirubin 0.6 (0.2-1.3) mg/dL AST 23 (17-59) IU/L ALT 21 (21-72) IU/L Alkaline Phosphatase 80 (38-126) U/L Total Creatine Kinase 73 (55-170) U/L Troponin I < 0.012 (0.01-0.034) ng/mL B-Natriuretic Peptide (<100) Total Protein 6.8 (6.3-8.2) g/dL Albumin 3.8 (3.5-5.0) g/dL Globulin 3.0 (1.7-4.1) g/dL Albumin/Globulin Ratio 1.3 (1.0-2.8) Amylase 68 (30-110) U/L Lipase 72 (23-300) U/L Procalcitonin (<0.5) ng/mL 02/21/18 Range/Units 18:15 WBC (4.5-11.0) X10^3/uL RBC (4.5-5.9) X10^6/uL Hgb (13.5-17.5) g/dL Hct (41-53) % MCV (80-100) fL MCH (26-34) PG MCHC (30-36) % RDW (11.6-14.8) % Plt Count (150-400) X10^3/uL Neut % (Auto) (50-75) % Lymph % (Auto) (25-40) % [place] % (Auto) (3-14) % Eos % (Auto) (2-4) % Baso % (Auto) (0-2) % Neut # (Auto) (4909-7185) /uL PT (10.1-12.7) SECONDS INR (0.9-1.3) APTT (26.4-36.2) SECONDS Sodium (137-145) mmol/L Potassium (3.4-5.1) mmol/L Chloride (98-107) mmol/L Carbon Dioxide (22-32) mmol/L BUN (9-20) mg/dL Creatinine (0.66-1.25) mg/dL Estimated GFR (>60) mL/min BUN/Creatinine Ratio (6-22) Glucose (80-110) mg/dL Lactate 1.4 (0.7-2.1) mmol/L Calcium (8.4-10.2) mg/dL Magnesium (1.6-2.3) mg/dL Total Bilirubin (0.2-1.3) mg/dL AST (17-59) IU/L ALT (21-72) IU/L Alkaline Phosphatase (38-126) U/L Total Creatine Kinase (55-170) U/L Troponin I (0.01-0.034) ng/mL B-Natriuretic Peptide (<100) Total Protein (6.3-8.2) g/dL Albumin (3.5-5.0) g/dL Globulin (1.7-4.1) g/dL Albumin/Globulin Ratio (1.0-2.8) Amylase (30-110) U/L Lipase (23-300) U/L Procalcitonin (<0.5) ng/mL Imaging Data Chest x-ray: Radiologist's impression: View Report History Print [address] [address] XRay Report Signed Patient: Tremaine Lane MR#: [id number] : 1945 Acct:[id number] Age/Sex: 72 / M Date of Service: 02/21/18 Loc: ED Accession Number: [id number] Procedure: XR chest 1V Ordering Provider: Alyssa Joshua PROCEDURE: XR CHEST 1V INDICATIONS: shortness of breath TECHNIQUE: One view of the chest was acquired. COMPARISON: [facility], , XR CHEST 1V, 01/31/2018, 2:41. FINDINGS: Surgical changes and devices: None. Lungs and pleura: Trace pulmonary radiopacities are present in the left midlung. The lungs are otherwise clear. No pleural effusion or pneumothorax. Mediastinum: Mediastinal contours appear normal. Heart size is normal. Bones and chest wall: No suspicious bony lesions. Overlying soft tissues appear unremarkable. IMPRESSION: Trace left midlung radiopacities. Differential considerations include early infection and atelectasis. Dictated by: Lynda Carnes M.D. on 02/21/2018 at 19:25 Approved by: Lynda Carnes M.D. on 02/21/2018 at 19:25 ECG Data Attestation: I personally reviewed and interpreted this ECG as follows: Interpretation: Sinus tachycardia. Ventricular rate 101. No ST elevation or depression noted. 1 PVC noted MDM Narrative Medical decision making narrative: The patient presented with chief complaint of shortness of breath. Labs were taken, cardiac labs were drawn, and EKG was done. A chest x-ray was taken. The patient had several respiratory therapy treatments. He was able to ambulate around the unit on his home oxygen level prior to discharge. He declined antibiotics at this time. He was hemodynamically stable upon discharge plans upon his primary care provider or his precipitation equipment tender tomorrow we discussed at length return precautions to the emergency department including worsening shortness of breath, chest pain, heart attack concerns. He was given a burst of steroid to start tomorrow. He had no questions or concerns upon discharge. <Jose Juan Lion DO - Last Filed: 02/21/18 23:39> Lab Data Lab Results 02/21/18 02/21/18 02/21/18 Range/Units 18:15 18:15 18:15 WBC 10.9 (4.5-11.0) X10^3/uL RBC 3.86 L (4.5-5.9) X10^6/uL Hgb 11.9 L (13.5-17.5) g/dL Hct 35.5 L (41-53) % MCV 91.8 (80-100) fL MCH 30.9 (26-34) PG MCHC 33.6 (30-36) % RDW 14.2 (11.6-14.8) % Plt Count 156 (150-400) X10^3/uL Neut % (Auto) 80.1 H (50-75) % Lymph % (Auto) 13.0 L (25-40) % [place] % (Auto) 4.6 (3-14) % Eos % (Auto) 1.5 L (2-4) % Baso % (Auto) 0.8 (0-2) % Neut # (Auto) 8700 H (2764-4020) /uL PT 12.1 (10.1-12.7) SECONDS INR 1.1 (0.9-1.3) APTT 31 (26.4-36.2) SECONDS Sodium (137-145) mmol/L Potassium (3.4-5.1) mmol/L Chloride (98-107) mmol/L Carbon Dioxide (22-32) mmol/L BUN (9-20) mg/dL Creatinine (0.66-1.25) mg/dL Estimated GFR (>60) mL/min BUN/Creatinine Ratio (6-22) Glucose (80-110) mg/dL Lactate (0.7-2.1) mmol/L Calcium (8.4-10.2) mg/dL Magnesium (1.6-2.3) mg/dL Total Bilirubin (0.2-1.3) mg/dL AST (17-59) IU/L ALT (21-72) IU/L Alkaline Phosphatase (38-126) U/L Total Creatine Kinase (55-170) U/L Troponin I (0.01-0.034) ng/mL B-Natriuretic Peptide 51.2 (<100) Total Protein (6.3-8.2) g/dL Albumin (3.5-5.0) g/dL Globulin (1.7-4.1) g/dL Albumin/Globulin Ratio (1.0-2.8) Amylase (30-110) U/L Lipase (23-300) U/L Procalcitonin < 0.05 (<0.5) ng/mL 02/21/18 02/21/18 02/21/18 Range/Units 18:15 18:15 18:15 WBC (4.5-11.0) X10^3/uL RBC (4.5-5.9) X10^6/uL Hgb (13.5-17.5) g/dL Hct (41-53) % MCV (80-100) fL MCH (26-34) PG MCHC (30-36) % RDW (11.6-14.8) % Plt Count (150-400) X10^3/uL Neut % (Auto) (50-75) % Lymph % (Auto) (25-40) % [place] % (Auto) (3-14) % Eos % (Auto) (2-4) % Baso % (Auto) (0-2) % Neut # (Auto) (8205-0073) /uL PT (10.1-12.7) SECONDS INR (0.9-1.3) APTT (26.4-36.2) SECONDS Sodium 148 H (137-145) mmol/L Potassium 4.4 (3.4-5.1) mmol/L Chloride 109 H (98-107) mmol/L Carbon Dioxide 28 (22-32) mmol/L BUN 16 (9-20) mg/dL Creatinine 1.00 (0.66-1.25) mg/dL Estimated GFR > 60.0 (>60) mL/min BUN/Creatinine Ratio 16.0 (6-22) Glucose 111 H (80-110) mg/dL Lactate (0.7-2.1) mmol/L Calcium 9.1 (8.4-10.2) mg/dL Magnesium 1.9 (1.6-2.3) mg/dL Total Bilirubin 0.6 (0.2-1.3) mg/dL AST 23 (17-59) IU/L ALT 21 (21-72) IU/L Alkaline Phosphatase 80 (38-126) U/L Total Creatine Kinase 73 (55-170) U/L Troponin I < 0.012 (0.01-0.034) ng/mL B-Natriuretic Peptide (<100) Total Protein 6.8 (6.3-8.2) g/dL Albumin 3.8 (3.5-5.0) g/dL Globulin 3.0 (1.7-4.1) g/dL Albumin/Globulin Ratio 1.3 (1.0-2.8) Amylase 68 (30-110) U/L Lipase 72 (23-300) U/L Procalcitonin (<0.5) ng/mL 02/21/18 Range/Units 18:15 WBC (4.5-11.0) X10^3/uL RBC (4.5-5.9) X10^6/uL Hgb (13.5-17.5) g/dL Hct (41-53) % MCV (80-100) fL MCH (26-34) PG MCHC (30-36) % RDW (11.6-14.8) % Plt Count (150-400) X10^3/uL Neut % (Auto) (50-75) % Lymph % (Auto) (25-40) % [place] % (Auto) (3-14) % Eos % (Auto) (2-4) % Baso % (Auto) (0-2) % Neut # (Auto) (7523-9434) /uL PT (10.1-12.7) SECONDS INR (0.9-1.3) APTT (26.4-36.2) SECONDS Sodium (137-145) mmol/L Potassium (3.4-5.1) mmol/L Chloride (98-107) mmol/L Carbon Dioxide (22-32) mmol/L BUN (9-20) mg/dL Creatinine (0.66-1.25) mg/dL Estimated GFR (>60) mL/min BUN/Creatinine Ratio (6-22) Glucose (80-110) mg/dL Lactate 1.4 (0.7-2.1) mmol/L Calcium (8.4-10.2) mg/dL Magnesium (1.6-2.3) mg/dL Total Bilirubin (0.2-1.3) mg/dL AST (17-59) IU/L ALT (21-72) IU/L Alkaline Phosphatase (38-126) U/L Total Creatine Kinase (55-170) U/L Troponin I (0.01-0.034) ng/mL B-Natriuretic Peptide (<100) Total Protein (6.3-8.2) g/dL Albumin (3.5-5.0) g/dL Globulin (1.7-4.1) g/dL Albumin/Globulin Ratio (1.0-2.8) Amylase (30-110) U/L Lipase (23-300) U/L Procalcitonin (<0.5) ng/mL Discharge Plan Departure Patient Disposition: Home Clinical Impression: COPD (chronic obstructive pulmonary disease) Discharge Date/Time: 02/21/18 21:41 Interventions: ED Discharge Assessment Last Done: 02/21/18 21:40 Instructions: DI for Chronic Obstructive Pulmonary Disease Activity Restrictions/Additional Instructions: I am giving you have burst of steroids to start tomorrow. We gave you IV steroids tonight. Please follow-up with their doctor in the next 2 days. Please come back to the emergency department for any acute concerns. Please use your inhalers and nebulizers as needed. Prescriptions: New prednisone 20 mg tablet 40 mg PO DAILY 5 Days RF: 0 No Action albuterol sulfate 90 mcg/actuation Hfa Aerosol Inhaler 2 puff Inhalation QID PRN (Reason: Shortness Of Breath) RF: 0 albuterol sulfate 2.5 mg /3 mL (0.083 %) Solution For Nebulization 3 ml Inhalation QID PRN (Reason: Shortness Of Breath) RF: 0 alfuzosin 10 mg Tablet Extended Release 24 Hr 10 mg PO DAILY RF: 0 olodaterol 2.5 mcg/actuation Mist 2 puff Inhalation QDAY RF: 0 omeprazole 20 mg capsule 20 mg PO BID RF: 0 azithromycin 250 mg tablet 250 mg PO DAILY PRN (Reason: part of Respiratory home KIT) RF: 0 magnesium 250 mg Tablet 250 mg PO DAILY RF: 0 cyanocobalamin-cobamamide [B12] 5,000-100 mcg Lozenge 1,000 mg Sublingual DAILY RF: 0 prednisone 20 mg Tablet 40 mg PO DAILY Qty: 10 RF: 0 budesonide [Pulmicort] 0.5 mg/2 mL Suspension For Nebulization 0.5 mg INH RTBID Qty: 30 RF: 0 prednisone 20 mg tablet 20 mg PO BID Qty: 10 RF: 0 Referrals: [facility] [Provider Group] <Jose Juan Lion, DO - Last Filed: 02/21/18 23:39> Cosign ED Attending Nimisha Attestation: I was available for consultation during this patient's emergency department encounter
[2018-02-21 18:40] LABS: Add Manual Diff / Slide Review NO; Basophils Percent Auto 0.8 % (0-2); Eosinophils Percent Auto 1.5 % (2-4); Hematocrit 35.5 % (41-53); Hemoglobin 11.9 g/dL (13.5-17.5); Mean Corpuscular HGB Conc 33.6 % (30-36); Mean Corpuscular Hemoglobin 30.9 PG (26-34); Mean Corpuscular Volume 91.8 fL (80-100); Monocytes Percent Auto 4.6 % (3-14); Neutrophils Absolute Auto 8700 /uL (3000-5900); Neutrophils Percent Auto 80.1 % (50-75); Platelet Count 156 X10^3/uL (150-400); Red Blood Cell Count 3.86 X10^6/uL (4.5-5.9); Red Cell Distribution Width 14.2 % (11.6-14.8); White Blood Cell Count 10.9 X10^3/uL (4.5-11.0)
[2018-02-21 18:41] LABS: INR 1.1 (0.9-1.3); Prothrombin Time 12.1 SECONDS (10.1-12.7)
[2018-02-21 18:44] LABS: Creatine Kinase 73 U/L (55-170); PTT Partial Thromboplastin Tim 31 SECONDS (26.4-36.2)
[2018-02-21 18:45] LABS: Lactate (Lactic Acid) 1.4 mmol/L (0.7-2.1)
[2018-02-21 19:04] LABS: Troponin I < 0.012 ng/mL (0.01-0.034)
[2018-02-21 19:05] LABS: B Type Natriuretic Peptide 51.2 (<100)
[2018-02-21 19:10] LABS: Alanine Aminotransferase 21 IU/L (21-72); Albumin 3.8 g/dL (3.5-5.0); Albumin Globulin Ratio 1.3 (1.0-2.8); Alkaline Phosphatase 80 U/L (38-126); Aspartate Aminotransferase 23 IU/L (17-59); Bilirubin Total 0.6 mg/dL (0.2-1.3); Blood Urea Nitrogen 16 mg/dL (9-20); Calcium 9.1 mg/dL (8.4-10.2); Carbon Dioxide 28 mmol/L (22-32); Chloride 109 mmol/L (98-107); Estimated Glomerular Filt Rate > 60.0 mL/min (>60); Glucose 111 mg/dL (80-110); HEMOLYSIS < 15 (0-50); Potassium 4.4 mmol/L (3.4-5.1); Sodium 148 mmol/L (137-145); Total Protein 6.8 g/dL (6.3-8.2)
[2018-02-21 19:30] VITALS: BP 119/54; PULSE 88; RESP 18; O2SAT 95
[2018-02-21 19:30] LABS: Amylase 68 U/L (30-110); Lipase 72 U/L (23-300); Magnesium 1.9 mg/dL (1.6-2.3)
[2018-02-21 19:58] LABS: Procalcitonin < 0.05 ng/mL (<0.5)
[2018-02-21] MEDS: methylPREDNISolone 125 MG/2 ML VIAL IV (20:15)
[2018-02-21 21:01] VITALS: BP 131/57; PULSE 89; RESP 18; O2SAT 95
--- NOTE | 2018-02-21 21:10 | PC.NURSE ---
Pt ambulated around unit on his baseline 2 L with his portable oxygen tank. He reports that he will often go down to as low as 80% O2 sat with activity, but recovers quickly. He went down to 88% after walking around unit, but sat down and recovered. Feels comfortable going home.
--- NOTE | 2018-02-21 21:23 | ED_ITS ---
HPI - Chest Pain <PAULO Mcelroy - Last Filed: 02/21/18 22:42> General Chief Complaint: Chest Pain Stated Complaint: trouble breathing Time Seen by Provider: 02/21/18 18:03 Source: patient Mode of arrival: ambulatory Limitations: no limitations History of Present Illness HPI narrative: Patient presents with chief complaint of shortness of breath that started at two a.m.. He has a history of COPD with multiple admissions to this facility. He states he feels tightness in his epigastric area when he is having hard time breathing. He is on home O2 2-3 L at a time. He denies any fevers, complains of a slightly productive cough twice a day. He denies nausea vomiting diarrhea. He denies palpitations, lower leg edema, swelling of extremities. He has used his albuterol at home. He states when he was discharged, he was not given of long of a prednisone doses he was supposed to get. Related Data Home Medications Medication Instructions Recorded Confirmed albuterol sulfate 2 puff INHALATION QID PRN 10/06/17 01/31/18 albuterol sulfate 3 ml INHALATION QID PRN 10/06/17 01/31/18 alfuzosin 10 mg PO DAILY 10/06/17 01/31/18 olodaterol 2 puff INHALATION QDAY 10/06/17 01/31/18 omeprazole 20 mg PO BID 10/06/17 01/31/18 azithromycin 250 mg PO DAILY PRN 01/31/18 01/31/18 magnesium 250 mg PO DAILY 01/31/18 01/31/18 cyanocobalamin-cobamamide [B12] 1,000 mg SUBLINGUAL DAILY 02/01/18 02/01/18 Previous Rx's Medication Instructions Recorded budesonide [Pulmicort] 0.5 mg INH RTBID #30 ml 02/03/18 prednisone 20 mg PO BID #10 tab 02/03/18 prednisone 40 mg PO DAILY #10 tab 02/03/18 prednisone 40 mg PO DAILY 5 Days tab 02/21/18 Allergies Allergy/AdvReac Type Severity Reaction Status Date / Time Aynwtjc-Adh-Qdx Reductase Allergy Intermediate Cramping Verified 02/21/18 17:40 Inhibitor of the Muscles Review of Systems <PAULO Mcelroy - Last Filed: 02/21/18 22:42> Review of Systems GENERAL: Denies chills, fatigue, malaise, fever, sweats. HEENT: Denies sinus pain, ear pain, sore throat, difficulty swallowing, dizziness. RESPIRATORY: See HPI CARDIOVASCULAR: See HPI GASTROINTESTINAL: Denies nausea, vomiting, abdominal pain, diarrhea, constipation, melena. : Denies dysuria, frequency, incontinence, hematuria, urinary retention. MUSCULOSKELETAL: denies weakness, joint pain, or bony pain SKIN: Denies rash, skin lesions, or other NEUROLOGIC: Denies weakness, headache, numbness, change in speech, confusion, seizures, incoordination. PSYCHIATRIC: No concerning psychosocial issues. 12 point review of systems is negative except for those stated above Exam <LAURENCE Mcelroy-BC - Last Filed: 02/21/18 22:42> Narrative Exam Narrative: GENERAL: This is a well-nourished, well-developed patient, on oxygen in bed HEAD: Atraumatic. Normocephalic. No temporal or scalp tenderness. EYES: Pupils equal round and reactive. Extraocular motions intact. No scleral icterus. No injection or drainage. ENT: Nose without bleeding, purulent drainage or septal hematoma. Throat without erythema, tonsillar hypertrophy or exudate. Uvula midline. Airway patent. NECK: Trachea midline. No JVD or lymphadenopathy. Supple, nontender, no meningeal signs. CARDIOVASCULAR: Regular rate and rhythm without murmurs, gallops, or rubs. RESPIRATORY: Decreased to auscultation. Breath sounds equal bilaterally. Slight expiratory wheezes. No rales or rhonchi. Slight increased respiratory effort noted. Noted to be 1-2 word dyspnea upon arrival. GASTROINTESTINAL: Abdomen soft, non-tender, nondistended. No hepato-splenomegaly , or palpable masses. No guarding. Active bowel sounds all quadrants. No pulsatile mass. EXTREMITIES: No clubbing, cyanosis, or edema. No joint tenderness, effusion, or edema noted. BACK: Nontender without deformity or crepitance. No flank tenderness. NEURO: AOx3. SKIN: No rash or erythema. Initial Vital Signs Initial Vital Signs: Vital Signs Pulse Rate 100 H 02/21/18 18:20 Respiratory Rate 20 02/21/18 18:20 Pulse Oximetry 95 02/21/18 18:20 <Jose Juan Lion DO - Last Filed: 02/21/18 23:39> Initial Vital Signs Initial Vital Signs: Vital Signs Pulse Rate 100 H 02/21/18 18:20 Respiratory Rate 20 02/21/18 18:20 Pulse Oximetry 95 02/21/18 18:20 Course <LAURENCE Mcelroy-BC - Last Filed: 02/21/18 22:42> Orders Ordered: ED Orders 02/21/18 18:15 Amylase Stat B Type Natriuretic Peptide Stat Complete Blood Count AUTO DIFF Stat Comprehensive Metabolic Panel Stat Lactate (Lactic Acid) Stat Lipase Stat Magnesium Stat Partial Thromboplastin Time Stat Procalcitonin Stat Prothrombin Time INR Stat Troponin & CK Cardiac Panel Stat 02/21/18 18:25 Consult to Respiratory Therapy Evaluate & Treat 02/21/18 18:26 XR chest 1V Stat Discontinued Medications Albuterol/Ipratropium (Duoneb) 3 ml INH Q20M RASHEED Stop: 02/21/18 19:11 Last Admin: 02/21/18 19:31 Dose: Admin: 02/21/18 19:31 Dose: Admin: 02/21/18 18:24 Dose: 3 ml Methylprednisolone (Solu-Medrol 125 Mg Vial) 125 mg IV NOW ONE Stop: 02/21/18 19:45 Last Admin: 02/21/18 20:15 Dose: 125 mg A checked on the patient several times throughout his emergency department stay. He initially presented in respiratory distress, but quickly recovered after few nebulizer treatments by the respiratory therapist. He received a cardiac rule out, a chest x-ray, EKG. I did give him IV Solu-Medrol. Given his recent admission, I spoke with Dr. Desouza to evaluate him for admission. Dr Desouza encourage discharge home if possible. Given that the patient was able to ambulate on oxygen with maintaining his saturation levels, and remained hemodynamically stable the patient felt well enough to go home. Given the patient's productive cough, however to treat him with doxycycline in addition to prednisone for COPD exacerbation. 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 Vital Signs - 8 hr 02/21/18 18:20 02/21/18 19:30 02/21/18 21:01 Pulse Rate 100 H 88 89 Respiratory Rate 20 18 18 Blood Pressure [Right Arm] 119/54 L 131/57 L Pulse Oximetry 95 95 95 <Jose Juan Lion DO - Last Filed: 02/21/18 23:39> Orders Ordered: ED Orders 02/21/18 18:15 Amylase Stat B Type Natriuretic Peptide Stat Complete Blood Count AUTO DIFF Stat Comprehensive Metabolic Panel Stat Lactate (Lactic Acid) Stat Lipase Stat Magnesium Stat Partial Thromboplastin Time Stat Procalcitonin Stat Prothrombin Time INR Stat Troponin & CK Cardiac Panel Stat 02/21/18 18:25 Consult to Respiratory Therapy Evaluate & Treat 02/21/18 18:26 XR chest 1V Stat Discontinued Medications Albuterol/Ipratropium (Duoneb) 3 ml INH Q20M RASHEED Stop: 02/21/18 19:11 Last Admin: 02/21/18 19:31 Dose: Admin: 02/21/18 19:31 Dose: Admin: 02/21/18 18:24 Dose: 3 ml Methylprednisolone (Solu-Medrol 125 Mg Vial) 125 mg IV NOW ONE Stop: 02/21/18 19:45 Last Admin: 02/21/18 20:15 Dose: 125 mg Vital Signs - 8 hr 02/21/18 18:20 02/21/18 19:30 02/21/18 21:01 Pulse Rate 100 H 88 89 Respiratory Rate 20 18 18 Blood Pressure [Right Arm] 119/54 L 131/57 L Pulse Oximetry 95 95 95 MDM - Chest Pain <PAULO Mcelroy - Last Filed: 02/21/18 22:42> Lab Data Attestation: I reviewed the patient's lab results. Result diagrams: 02/21/18 18:15 02/21/18 18:15 Lab Results 02/21/18 02/21/18 02/21/18 Range/Units 18:15 18:15 18:15 WBC 10.9 (4.5-11.0) X10^3/uL RBC 3.86 L (4.5-5.9) X10^6/uL Hgb 11.9 L (13.5-17.5) g/dL Hct 35.5 L (41-53) % MCV 91.8 (80-100) fL MCH 30.9 (26-34) PG MCHC 33.6 (30-36) % RDW 14.2 (11.6-14.8) % Plt Count 156 (150-400) X10^3/uL Neut % (Auto) 80.1 H (50-75) % Lymph % (Auto) 13.0 L (25-40) % Dickson % (Auto) 4.6 (3-14) % Eos % (Auto) 1.5 L (2-4) % Baso % (Auto) 0.8 (0-2) % Neut # (Auto) 8700 H (3078-0241) /uL PT 12.1 (10.1-12.7) SECONDS INR 1.1 (0.9-1.3) APTT 31 (26.4-36.2) SECONDS Sodium (137-145) mmol/L Potassium (3.4-5.1) mmol/L Chloride (98-107) mmol/L Carbon Dioxide (22-32) mmol/L BUN (9-20) mg/dL Creatinine (0.66-1.25) mg/dL Estimated GFR (>60) mL/min BUN/Creatinine Ratio (6-22) Glucose (80-110) mg/dL Lactate (0.7-2.1) mmol/L Calcium (8.4-10.2) mg/dL Magnesium (1.6-2.3) mg/dL Total Bilirubin (0.2-1.3) mg/dL AST (17-59) IU/L ALT (21-72) IU/L Alkaline Phosphatase (38-126) U/L Total Creatine Kinase (55-170) U/L Troponin I (0.01-0.034) ng/mL B-Natriuretic Peptide 51.2 (<100) Total Protein (6.3-8.2) g/dL Albumin (3.5-5.0) g/dL Globulin (1.7-4.1) g/dL Albumin/Globulin Ratio (1.0-2.8) Amylase (30-110) U/L Lipase (23-300) U/L Procalcitonin < 0.05 (<0.5) ng/mL 02/21/18 02/21/18 02/21/18 Range/Units 18:15 18:15 18:15 WBC (4.5-11.0) X10^3/uL RBC (4.5-5.9) X10^6/uL Hgb (13.5-17.5) g/dL Hct (41-53) % MCV (80-100) fL MCH (26-34) PG MCHC (30-36) % RDW (11.6-14.8) % Plt Count (150-400) X10^3/uL Neut % (Auto) (50-75) % Lymph % (Auto) (25-40) % Dickson % (Auto) (3-14) % Eos % (Auto) (2-4) % Baso % (Auto) (0-2) % Neut # (Auto) (1476-8937) /uL PT (10.1-12.7) SECONDS INR (0.9-1.3) APTT (26.4-36.2) SECONDS Sodium 148 H (137-145) mmol/L Potassium 4.4 (3.4-5.1) mmol/L Chloride 109 H (98-107) mmol/L Carbon Dioxide 28 (22-32) mmol/L BUN 16 (9-20) mg/dL Creatinine 1.00 (0.66-1.25) mg/dL Estimated GFR > 60.0 (>60) mL/min BUN/Creatinine Ratio 16.0 (6-22) Glucose 111 H (80-110) mg/dL Lactate (0.7-2.1) mmol/L Calcium 9.1 (8.4-10.2) mg/dL Magnesium 1.9 (1.6-2.3) mg/dL Total Bilirubin 0.6 (0.2-1.3) mg/dL AST 23 (17-59) IU/L ALT 21 (21-72) IU/L Alkaline Phosphatase 80 (38-126) U/L Total Creatine Kinase 73 (55-170) U/L Troponin I < 0.012 (0.01-0.034) ng/mL B-Natriuretic Peptide (<100) Total Protein 6.8 (6.3-8.2) g/dL Albumin 3.8 (3.5-5.0) g/dL Globulin 3.0 (1.7-4.1) g/dL Albumin/Globulin Ratio 1.3 (1.0-2.8) Amylase 68 (30-110) U/L Lipase 72 (23-300) U/L Procalcitonin (<0.5) ng/mL 02/21/18 Range/Units 18:15 WBC (4.5-11.0) X10^3/uL RBC (4.5-5.9) X10^6/uL Hgb (13.5-17.5) g/dL Hct (41-53) % MCV (80-100) fL MCH (26-34) PG MCHC (30-36) % RDW (11.6-14.8) % Plt Count (150-400) X10^3/uL Neut % (Auto) (50-75) % Lymph % (Auto) (25-40) % Dickson % (Auto) (3-14) % Eos % (Auto) (2-4) % Baso % (Auto) (0-2) % Neut # (Auto) (4283-7392) /uL PT (10.1-12.7) SECONDS INR (0.9-1.3) APTT (26.4-36.2) SECONDS Sodium (137-145) mmol/L Potassium (3.4-5.1) mmol/L Chloride (98-107) mmol/L Carbon Dioxide (22-32) mmol/L BUN (9-20) mg/dL Creatinine (0.66-1.25) mg/dL Estimated GFR (>60) mL/min BUN/Creatinine Ratio (6-22) Glucose (80-110) mg/dL Lactate 1.4 (0.7-2.1) mmol/L Calcium (8.4-10.2) mg/dL Magnesium (1.6-2.3) mg/dL Total Bilirubin (0.2-1.3) mg/dL AST (17-59) IU/L ALT (21-72) IU/L Alkaline Phosphatase (38-126) U/L Total Creatine Kinase (55-170) U/L Troponin I (0.01-0.034) ng/mL B-Natriuretic Peptide (<100) Total Protein (6.3-8.2) g/dL Albumin (3.5-5.0) g/dL Globulin (1.7-4.1) g/dL Albumin/Globulin Ratio (1.0-2.8) Amylase (30-110) U/L Lipase (23-300) U/L Procalcitonin (<0.5) ng/mL Imaging Data Chest x-ray: Radiologist's impression: View Report History Print [address] [address] XRay Report Signed Patient: Tremaine Lane MR#: [id number] : 1945 Acct:[id number] Age/Sex: 72 / M Date of Service: 02/21/18 Loc: ED Accession Number: [id number] Procedure: XR chest 1V Ordering Provider: Alyssa Joshua PROCEDURE: XR CHEST 1V INDICATIONS: shortness of breath TECHNIQUE: One view of the chest was acquired. COMPARISON: [facility], , XR CHEST 1V, 01/31/2018, 2:41. FINDINGS: Surgical changes and devices: None. Lungs and pleura: Trace pulmonary radiopacities are present in the left midlung. The lungs are otherwise clear. No pleural effusion or pneumothorax. Mediastinum: Mediastinal contours appear normal. Heart size is normal. Bones and chest wall: No suspicious bony lesions. Overlying soft tissues appear unremarkable. IMPRESSION: Trace left midlung radiopacities. Differential considerations include early infection and atelectasis. Dictated by: Lynda Carnes M.D. on 02/21/2018 at 19:25 Approved by: Lynda Carnes M.D. on 02/21/2018 at 19:25 ECG Data Attestation: I personally reviewed and interpreted this ECG as follows: Interpretation: Sinus tachycardia. Ventricular rate 101. No ST elevation or depression noted. 1 PVC noted MDM Narrative Medical decision making narrative: The patient presented with chief complaint of shortness of breath. Labs were taken, cardiac labs were drawn, and EKG was done. A chest x-ray was taken. The patient had several respiratory therapy treatments. He was able to ambulate around the unit on his home oxygen level prior to discharge. He declined antibiotics at this time. 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 He was given a burst of steroid to start tomorrow. He had no questions or concerns upon discharge. <Jose Juan Lion DO - Last Filed: 02/21/18 23:39> Lab Data Lab Results 02/21/18 02/21/18 02/21/18 Range/Units 18:15 18:15 18:15 WBC 10.9 (4.5-11.0) X10^3/uL RBC 3.86 L (4.5-5.9) X10^6/uL Hgb 11.9 L (13.5-17.5) g/dL Hct 35.5 L (41-53) % MCV 91.8 (80-100) fL MCH 30.9 (26-34) PG MCHC 33.6 (30-36) % RDW 14.2 (11.6-14.8) % Plt Count 156 (150-400) X10^3/uL Neut % (Auto) 80.1 H (50-75) % Lymph % (Auto) 13.0 L (25-40) % Dickson % (Auto) 4.6 (3-14) % Eos % (Auto) 1.5 L (2-4) % Baso % (Auto) 0.8 (0-2) % Neut # (Auto) 8700 H (0277-5043) /uL PT 12.1 (10.1-12.7) SECONDS INR 1.1 (0.9-1.3) APTT 31 (26.4-36.2) SECONDS Sodium (137-145) mmol/L Potassium (3.4-5.1) mmol/L Chloride (98-107) mmol/L Carbon Dioxide (22-32) mmol/L BUN (9-20) mg/dL Creatinine (0.66-1.25) mg/dL Estimated GFR (>60) mL/min BUN/Creatinine Ratio (6-22) Glucose (80-110) mg/dL Lactate (0.7-2.1) mmol/L Calcium (8.4-10.2) mg/dL Magnesium (1.6-2.3) mg/dL Total Bilirubin (0.2-1.3) mg/dL AST (17-59) IU/L ALT (21-72) IU/L Alkaline Phosphatase (38-126) U/L Total Creatine Kinase (55-170) U/L Troponin I (0.01-0.034) ng/mL B-Natriuretic Peptide 51.2 (<100) Total Protein (6.3-8.2) g/dL Albumin (3.5-5.0) g/dL Globulin (1.7-4.1) g/dL Albumin/Globulin Ratio (1.0-2.8) Amylase (30-110) U/L Lipase (23-300) U/L Procalcitonin < 0.05 (<0.5) ng/mL 02/21/18 02/21/18 02/21/18 Range/Units 18:15 18:15 18:15 WBC (4.5-11.0) X10^3/uL RBC (4.5-5.9) X10^6/uL Hgb (13.5-17.5) g/dL Hct (41-53) % MCV (80-100) fL MCH (26-34) PG MCHC (30-36) % RDW (11.6-14.8) % Plt Count (150-400) X10^3/uL Neut % (Auto) (50-75) % Lymph % (Auto) (25-40) % Dickson % (Auto) (3-14) % Eos % (Auto) (2-4) % Baso % (Auto) (0-2) % Neut # (Auto) (5295-3413) /uL PT (10.1-12.7) SECONDS INR (0.9-1.3) APTT (26.4-36.2) SECONDS Sodium 148 H (137-145) mmol/L Potassium 4.4 (3.4-5.1) mmol/L Chloride 109 H (98-107) mmol/L Carbon Dioxide 28 (22-32) mmol/L BUN 16 (9-20) mg/dL Creatinine 1.00 (0.66-1.25) mg/dL Estimated GFR > 60.0 (>60) mL/min BUN/Creatinine Ratio 16.0 (6-22) Glucose 111 H (80-110) mg/dL Lactate (0.7-2.1) mmol/L Calcium 9.1 (8.4-10.2) mg/dL Magnesium 1.9 (1.6-2.3) mg/dL Total Bilirubin 0.6 (0.2-1.3) mg/dL AST 23 (17-59) IU/L ALT 21 (21-72) IU/L Alkaline Phosphatase 80 (38-126) U/L Total Creatine Kinase 73 (55-170) U/L Troponin I < 0.012 (0.01-0.034) ng/mL B-Natriuretic Peptide (<100) Total Protein 6.8 (6.3-8.2) g/dL Albumin 3.8 (3.5-5.0) g/dL Globulin 3.0 (1.7-4.1) g/dL Albumin/Globulin Ratio 1.3 (1.0-2.8) Amylase 68 (30-110) U/L Lipase 72 (23-300) U/L Procalcitonin (<0.5) ng/mL 02/21/18 Range/Units 18:15 WBC (4.5-11.0) X10^3/uL RBC (4.5-5.9) X10^6/uL Hgb (13.5-17.5) g/dL Hct (41-53) % MCV (80-100) fL MCH (26-34) PG MCHC (30-36) % RDW (11.6-14.8) % Plt Count (150-400) X10^3/uL Neut % (Auto) (50-75) % Lymph % (Auto) (25-40) % Dickson % (Auto) (3-14) % Eos % (Auto) (2-4) % Baso % (Auto) (0-2) % Neut # (Auto) (5700-3383) /uL PT (10.1-12.7) SECONDS INR (0.9-1.3) APTT (26.4-36.2) SECONDS Sodium (137-145) mmol/L Potassium (3.4-5.1) mmol/L Chloride (98-107) mmol/L Carbon Dioxide (22-32) mmol/L BUN (9-20) mg/dL Creatinine (0.66-1.25) mg/dL Estimated GFR (>60) mL/min BUN/Creatinine Ratio (6-22) Glucose (80-110) mg/dL Lactate 1.4 (0.7-2.1) mmol/L Calcium (8.4-10.2) mg/dL Magnesium (1.6-2.3) mg/dL Total Bilirubin (0.2-1.3) mg/dL AST (17-59) IU/L ALT (21-72) IU/L Alkaline Phosphatase (38-126) U/L Total Creatine Kinase (55-170) U/L Troponin I (0.01-0.034) ng/mL B-Natriuretic Peptide (<100) Total Protein (6.3-8.2) g/dL Albumin (3.5-5.0) g/dL Globulin (1.7-4.1) g/dL Albumin/Globulin Ratio (1.0-2.8) Amylase (30-110) U/L Lipase (23-300) U/L Procalcitonin (<0.5) ng/mL Discharge Plan Departure Patient Disposition: Home Clinical Impression: COPD (chronic obstructive pulmonary disease) Discharge Date/Time: 02/21/18 21:41 Interventions: ED Discharge Assessment Last Done: 02/21/18 21:40 Instructions: DI for Chronic Obstructive Pulmonary Disease Activity Restrictions/Additional Instructions: I am giving you have burst of steroids to start tomorrow. We gave you IV steroids tonight. Please follow-up with their doctor in the next 2 days. Please come back to the emergency department for any acute concerns. Please use your inhalers and nebulizers as needed. Prescriptions: New prednisone 20 mg tablet 40 mg PO DAILY 5 Days RF: 0 No Action albuterol sulfate 90 mcg/actuation Hfa Aerosol Inhaler 2 puff Inhalation QID PRN (Reason: Shortness Of Breath) RF: 0 albuterol sulfate 2.5 mg /3 mL (0.083 %) Solution For Nebulization 3 ml Inhalation QID PRN (Reason: Shortness Of Breath) RF: 0 alfuzosin 10 mg Tablet Extended Release 24 Hr 10 mg PO DAILY RF: 0 olodaterol 2.5 mcg/actuation Mist 2 puff Inhalation QDAY RF: 0 omeprazole 20 mg capsule 20 mg PO BID RF: 0 azithromycin 250 mg tablet 250 mg PO DAILY PRN (Reason: part of Respiratory home KIT) RF: 0 magnesium 250 mg Tablet 250 mg PO DAILY RF: 0 cyanocobalamin-cobamamide [B12] 5,000-100 mcg Lozenge 1,000 mg Sublingual DAILY RF: 0 prednisone 20 mg Tablet 40 mg PO DAILY Qty: 10 RF: 0 budesonide [Pulmicort] 0.5 mg/2 mL Suspension For Nebulization 0.5 mg INH RTBID Qty: 30 RF: 0 prednisone 20 mg tablet 20 mg PO BID Qty: 10 RF: 0 Referrals: [facility] [Provider Group] <Jose Juan Lion, DO - Last Filed: 02/21/18 23:39> Cosign ED Attending Nimisha Attestation: I was available for consultation during this patient's emergency department encounter
== END 2018-02-21 21:41 | disposition home or self-care (01) ==
PROVIDERS: Emergency Provider Nurse Practitioner Family
DX: J44.9 Chronic obstructive pulmonary disease, unspecified (principal)
CPT/HCPCS: 36591; 71045; 80053; 82150; 82550; 82553; 83605; 83690; 83735; 83880; 84145; 84484; 85025; 85610; 85730; 93005; 94640; 96374; 99283; 99285; J2930

== ENCOUNTER 2018-03-28 04:06 | Observation (INO) | payer MEDICARE, OTHER, SELFPAY ==
[2018-01-31 04:16] VITALS: BMI 22.9
[2018-03-28] VITALS (20 sets, daily range): BP systolic 127–151; BP diastolic 60–78; PULSE 86–103; RESP 16–24; TEMP 36.4–36.7; O2SAT 83–98; BMI 24.1; BMI 23.8
--- NOTE | 2018-03-28 04:16 | DI.RAD.S_ITS ---
PROCEDURE: XR CHEST 1V INDICATIONS: sob, copd TECHNIQUE: One view of the chest was acquired. COMPARISON: None. FINDINGS: Surgical changes and devices: None. Lungs and pleura: No pleural effusions or pneumothorax. Lungs are clear. Mediastinum: Mediastinal contours appear normal. Heart size is normal. Bones and chest wall: No suspicious bony lesions. Overlying soft tissues appear unremarkable. IMPRESSION: No acute cardiopulmonary findings. Dictated by: Lynda Carnes M.D. on 03/28/2018 at 8:36 Approved by: Lynda Carnes M.D. on 03/28/2018 at 8:36
[2018-03-28] MEDS: methylPREDNISolone 125 MG/2 ML VIAL IV (04:21)
[2018-03-28] MEDS: ALBUTEROL 2.5 MG/3 ML NEB (ADULT) 5 MG INH (04:28)
--- NOTE | 2018-03-28 04:42 | ED_ITS ---
HPI - SOB/Dyspnea General Chief Complaint: Shortness of Breath/Dyspnea Stated Complaint: SOB Time Seen by Provider: 03/28/18 04:15 Source: patient and EMS Mode of arrival: EMS Limitations: no limitations History of Present Illness This is a 72-year-old male who comes to the emergency department with complaint of shortness of breath. Patient has a history of COPD and is on inhalers at. He is not on any prednisone or steroids currently. He does have what sounds like a steroid inhaler. Patient states that this evening he got very short of breath and contacted EMS. He had tried 1 or 2 nebs at home without success. He started to feel little bit tight in his chest yesterday Um and it progressed through the evening. No fevers. He states he does not normally cough very much up and has not been coughing up anything new or different. Patient denies any chest pain or pressure. He denies any abdominal pain. No vomiting, no diarrhea or constipation issues. No new urinary issues. Sometimes gets very mild swelling in his lower extremities which he notices when he wears his socks but otherwise has not had any new changes. He denies any cardiac history he states most of his issues are long. He did smoke but quit about 1999. He does CPAP at home. Related Data Home Medications Medication Instructions Recorded Confirmed albuterol sulfate 2 puff INHALATION QID PRN 10/06/17 01/31/18 albuterol sulfate 3 ml INHALATION QID PRN 10/06/17 01/31/18 alfuzosin 10 mg PO DAILY 10/06/17 01/31/18 olodaterol 2 puff INHALATION QDAY 10/06/17 01/31/18 omeprazole 20 mg PO BID 10/06/17 01/31/18 azithromycin 250 mg PO DAILY PRN 01/31/18 01/31/18 magnesium 250 mg PO DAILY 01/31/18 01/31/18 cyanocobalamin-cobamamide [B12] 1,000 mg SUBLINGUAL DAILY 02/01/18 02/01/18 Previous Rx's Medication Instructions Recorded budesonide [Pulmicort] 0.5 mg INH RTBID #30 ml 02/03/18 prednisone 20 mg PO BID #10 tab 02/03/18 prednisone 40 mg PO DAILY #10 tab 02/03/18 azithromycin See Label Instructions .ROUTE 03/28/18 .COMPLEX #6 tab prednisone 40 mg PO DAILY 3 Days tab 03/28/18 Allergies Allergy/AdvReac Type Severity Reaction Status Date / Time Crexpiy-Bxc-Orf Reductase Allergy Intermediate Cramping Verified 02/21/18 17:40 Inhibitor of the Muscles Review of Systems Review of Systems All systems reviewed & are unremarkable except as noted in HPI and below Constitutional Denies fever(s) ENT Ears, Nose, Mouth, and Throat: Denies nasal congestion, Denies nasal discharge and Denies sinus pain Cardiovascular Denies chest pain, Denies irregular heart rhythm, Reports leg edema (Very mild) , Denies lightheadedness, Denies palpitations, Reports dyspnea and Denies orthopnea Respiratory Denies change in phlegm color, Denies chest congestion, Denies excessive phlegm production, Denies pain on inspiration, Reports pain with cough, Reports dyspnea and Reports wheezing Gastrointestinal Gastrointestinal: Denies abdominal pain, Denies change in bowel habits, Denies diarrhea, Denies nausea and Denies vomiting Genitourinary Denies urinary incontinence and Denies urinary urgency Endocrine Denies palpitations Allergic/Immunologic Reports wheezing [facility] Medical History COPD (chronic obstructive pulmonary disease) (Acute) Bilateral leg cramps (Acute) Chronic anemia (Acute) Essential tremor (Acute) Surgical History H/O sinus surgery (Acute) Status post right foot surgery (Acute) Social History household members: none Smoking Status: Former smoker alcohol intake: current Exam Narrative Exam Narrative: GENERAL: Alert and oriented x three, well-nourished, well- appearing male in moderate distress. HEENT: Head normocephalic, atraumatic, EOMI, pupils reactive, face symmetric, moist mucous membranes NECK: Supple, full range of motion CARDIOVASCULAR: tachycardic butRegular rate and rhythm without murmurs, rubs or gallops. RESPIRATORY: Breath sounds equal bilaterally, bilateral wheezes, no rales, rhonchi bilaterally. Patient sounds coarse bilaterally. Patient has tachypnea but is able to speak in full sentences. He has some mild accessory muscle use. ABDOMEN: Soft, nontender. Normoactive bowel sounds all 4 quadrants. No guarding or rebound, rigidity, no mass : No CVA tenderness EXTREMITIES: Normal range of motion, no clubbing, trace edema pretibial bilaterally. Neurovascularly intact NEUROLOGICAL: Cranial nerves II through XII grossly intact. Moving all extremities SKIN: Warm, dry, no petechiae, no rashes or lesions. Initial Vital Signs Initial Vital Signs: Vital Signs Temperature 98.0 F 03/28/18 04:14 Pulse Rate 101 H 03/28/18 04:14 Respiratory Rate 20 03/28/18 04:14 Blood Pressure 148/72 H 03/28/18 04:14 Pulse Oximetry 95 03/28/18 04:14 Course Orders Ordered: ED Orders 03/28/18 04:15 Consult to Respiratory Therapy Evaluate & Treat EKG-12 Lead Stat 03/28/18 04:16 XR chest 1V Stat 03/28/18 05:44 B Type Natriuretic Peptide Stat Basic Metabolic Panel Stat Complete Blood Count AUTO DIFF Stat Magnesium Stat Partial Thromboplastin Time Stat Prothrombin Time INR Stat Troponin & CK Cardiac Panel Stat Discontinued Medications Albuterol (Ventolin) 5 mg INH NOW ONE Stop: 03/28/18 04:16 Last Admin: 03/28/18 04:28 Dose: 5 mg Albuterol/Ipratropium (Duoneb) 3 ml INH NOW ONE Stop: 03/28/18 07:10 Last Admin: 03/28/18 07:10 Dose: 3 ml Methylprednisolone (Solu-Medrol 125 Mg Vial) 125 mg IV NOW ONE Stop: 03/28/18 04:16 Last Admin: 03/28/18 04:21 Dose: 125 mg Vital Signs - 8 hr 03/28/18 04:14 03/28/18 04:28 03/28/18 05:00 Temperature 98.0 F Pulse Rate 101 H 94 H 98 H Respiratory Rate 20 16 18 Blood Pressure 148/72 H Blood Pressure [Left Arm] 134/60 Pulse Oximetry 95 97 98 03/28/18 06:00 03/28/18 06:46 Temperature Pulse Rate 89 89 Respiratory Rate 18 24 Blood Pressure Blood Pressure [Left Arm] 130/65 127/66 Pulse Oximetry 96 97 MDM - SOB/Dyspnea Lab Data Result diagrams: 03/28/18 05:44 03/28/18 05:44 Lab Results 10/21/18 10/21/18 10/21/18 Range/Units 05:44 05:44 05:44 WBC 7.3 (4.5-11.0) X10^3/uL RBC 3.75 L (4.5-5.9) X10^6/uL Hgb 11.5 L (13.5-17.5) g/dL Hct 33.8 L (41-53) % MCV 90.2 (80-100) fL MCH 30.7 (26-34) PG MCHC 34.0 (30-36) % RDW 13.9 (11.6-14.8) % Plt Count 152 (150-400) X10^3/uL Neut % (Auto) 73.3 (50-75) % Lymph % (Auto) 17.8 L (25-40) % [place] % (Auto) 5.0 (3-14) % Eos % (Auto) 3.2 (2-4) % Baso % (Auto) 0.7 (0-2) % Neut # (Auto) 5300 (2042-5155) /uL PT 11.2 (10.1-12.7) SECONDS INR 1.0 (0.9-1.3) APTT 32 (26.4-36.2) SECONDS Sodium 146 H (137-145) mmol/L Potassium 3.9 (3.4-5.1) mmol/L Chloride 109 H (98-107) mmol/L Carbon Dioxide 26 (22-32) mmol/L BUN 12 (9-20) mg/dL Creatinine 0.90 (0.66-1.25) mg/dL Estimated GFR > 60.0 (>60) mL/min BUN/Creatinine Ratio 13.3 (6-22) Glucose 147 H (80-110) mg/dL Calcium 8.7 (8.4-10.2) mg/dL Magnesium 2.0 (1.6-2.3) mg/dL Total Creatine Kinase 119 (55-170) U/L CK-MB (CK-2) 2.01 (<2.37) ng/mL CK-MB (CK-2) Rel Index 1.7 (1.5-5.0) % Troponin I < 0.012 (0.01-0.034) ng/mL B-Natriuretic Peptide 41.2 (<100) Imaging Data Chest x-ray: Attestation: I personally reviewed and interpreted this imaging study as follows: My impression: appears similar to prior CXR. Nap. ECG Data Attestation: I personally reviewed and interpreted this ECG as follows: Interpretation: Sinus rhythm with a rate of 91, para 166, QRS of 96 and a QTC of 385. No ST elevation or depression appreciated. Nonspecific T-wave change. MDM Narrative Medical decision making narrative: Recheck after further nebs here in the ED and patient is feeling like he is getting back to baseline. Patient Um was ready to go home. His oxygenation has been stable as heart rates been stable but when he attempted to put his clothes on to leave the emergency department and sit up on the edge of the bed he got very tachypneic and his heart rate spiked to the 130s. Patient does not sound particularly wheezy but does still found rhonchorous. I spoke with Dr. Wall past for an additional neb treatment if this does not improve patient plan for observation. Recontacted after repeat neb and patient still tachypneic, tachy and in distress with short distance. Patient had nebs at home, a DuoNeb EN route with EMS as well as 3 additional nebs here in the emergency department without resolution completely of his symptoms. He continues to become tachycardic and hypoxic any time he stands or tries to walk around even on his home O2. Discharge Plan Departure Patient Disposition: Admitted as Observation Clinical Impression: Acute exacerbation of chronic obstructive pulmonary disease (COPD) Instructions: DI for Chronic Obstructive Pulmonary Disease Additional Instructions: Call Thursday to set up follow-up with your primary care physician. Take prednisone until completely gone. Take your 1st dose this afternoon or evening. Take antibiotics until they are completely gone. Continue your home medications as prescribed as well as your oxygen Return to the emergency department for recurrent or increasing shortness of breath fevers, chest pain, syncope or passing out, or other new or concerning symptoms. Admit Date/Time: 03/28/18 07:39 Admit Provider: Hillary Wall
[2018-03-28 05:49] LABS: Add Manual Diff / Slide Review NO; Basophils Percent Auto 0.7 % (0-2); Eosinophils Percent Auto 3.2 % (2-4); Hematocrit 33.8 % (41-53); Hemoglobin 11.5 g/dL (13.5-17.5); Lymphocytes Percent Auto 17.8 % (25-40); Mean Corpuscular Hemoglobin 30.7 PG (26-34); Mean Corpuscular Volume 90.2 fL (80-100); Neutrophils Absolute Auto 5300 /uL (3000-5900); Neutrophils Percent Auto 73.3 % (50-75); Platelet Count 152 X10^3/uL (150-400); Red Blood Cell Count 3.75 X10^6/uL (4.5-5.9); Red Cell Distribution Width 13.9 % (11.6-14.8); White Blood Cell Count 7.3 X10^3/uL (4.5-11.0)
[2018-03-28 06:03] LABS: Prothrombin Time 11.2 SECONDS (10.1-12.7)
[2018-03-28 06:06] LABS: PTT Partial Thromboplastin Tim 32 SECONDS (26.4-36.2)
[2018-03-28 06:09] LABS: BUN Creatinine Ratio 13.3 (6-22); Blood Urea Nitrogen 12 mg/dL (9-20); Calcium 8.7 mg/dL (8.4-10.2); Carbon Dioxide 26 mmol/L (22-32); Chloride 109 mmol/L (98-107); Creatine Kinase 119 U/L (55-170); Estimated Glomerular Filt Rate > 60.0 mL/min (>60); Glucose 147 mg/dL (80-110); HEMOLYSIS < 15 (0-50); Potassium 3.9 mmol/L (3.4-5.1); Sodium 146 mmol/L (137-145)
[2018-03-28 06:12] LABS: B Type Natriuretic Peptide 41.2 (<100)
[2018-03-28 06:22] LABS: Troponin I < 0.012 ng/mL (0.01-0.034)
[2018-03-28 06:24] LABS: CKMB % Relative Index 1.7 % (1.5-5.0); Creatine Kinase MB 2.01 ng/mL (<2.37)
[2018-03-28] MEDS: ALBUTEROL/IPRATROPIUM 3 ML AMPUL INH ×2 (07:10→15:22)
--- NOTE | 2018-03-28 07:14 | PC.NURSE ---
Pt dressed himself and desatted into the low 80s shaking and unable to speak more than one word at a time. provider notified, duoneb ordered, provider called hospitalist. provider spoke with pt and decided on admission as the best option.
--- NOTE | 2018-03-28 07:57 | PC.NURSE ---
Report given to fidel DOUGHERTY in acute care
--- NOTE | 2018-03-28 09:22 | P.HP_ITS ---
History of Present Illness Date Patient Seen: 03/28/18 Time Patient Seen: 09:17 Chief complaint: SOB Narrative: 72-year-old male with past medical history of COPD/asthma on 3 L oxygen at home, B12 deficiency anemia, and BPH presented to emergency department with shortness of breath. Patient states that he woke up around 12 30 this morning and was gasping for breath. He took his inhalers and bumped up his oxygen to 4 L, but got no relief. Patient was not even able to move around from his bed as he was severely short of breath. By 230, when patient saw no improvement in symptoms, patient presented to emergency department. At that time patient denied any fevers or chills, but he was diaphoretic. Denied any loss of consciousness, blurry vision, dizziness. Denied any recent URI like symptoms with sore throat, sick contacts, or recent travel. Patient does have chronic cough, with white to yellow mucus production, which he has not noticed any change in. Patient denies any chest pain, but has been feeling musculoskeletal pain from breathing rapid. Denies any nausea, vomiting, diarrhea, constipation, or abdominal pain. Patient has chronic BPH with urinary frequency, for he takes medication. He has chronic mild lower extremity swelling. Emergency department, patient's vital were temperature 98.0? F, pulse 101, respiratory rate 20, blood pressure 148/72, saturating 95-97%. Expiratory wheezes were appreciated on respiratory exam. Lab work revealed WBC of 7.3, hemoglobin 11.5, hematocrit 33.8, platelets 152. Sodium was 146, potassium 3.9 , chloride 109, bicarb 26, BUN 12, creatinine 0.9, glucose 147. Patient was given DuoNeb EN route to the hospital, as well as 3 more treatments in the emergency department. He also received Solu-Medrol x1. His saturations were normal on 3 L (on which he is on home). Nevertheless, when patient was getting out of bed, patient became tachycardic up to 130s. H his wheezes were gone at that time, but his lungs sound rhonchorous. Patient was given 1 more DuoNeb treatment, but tachycardia persisted on ambulation, and therefore patient was admitted as observation to medical-surgical unit for further management of COPD/ asthma exacerbation. Patient History Medical History COPD (chronic obstructive pulmonary disease) (Acute) Asthma (Acute) BPH (benign prostatic hyperplasia) (Chronic) Bilateral leg cramps (Chronic) Chronic anemia (Chronic) Essential tremor (Chronic) Surgical History H/O sinus surgery (Chronic) Status post right foot surgery (Chronic) Family & Social History Family History: Reviewed 01/31/18 by Keira Hernandes MD Social History: household members none Tobacco & Substance use: Tobacco type cigarettes Smoking Status Former smoker alcohol intake current alcohol intake frequency holiday/special occasion Substance Use Type does not use Meds Home Medications Medication Instructions Recorded Confirmed Type albuterol sulfate 2 puff INHALATION QID PRN 10/06/17 01/31/18 History albuterol sulfate 3 ml INHALATION QID PRN 10/06/17 01/31/18 History alfuzosin 10 mg PO DAILY 10/06/17 01/31/18 History olodaterol 2 puff INHALATION QDAY 10/06/17 01/31/18 History omeprazole 20 mg PO BID 10/06/17 01/31/18 History azithromycin 250 mg PO DAILY PRN 01/31/18 01/31/18 History magnesium 250 mg PO DAILY 01/31/18 01/31/18 History cyanocobalamin-cobamamide [B12] 1,000 mg SUBLINGUAL DAILY 02/01/18 02/01/18 History budesonide [Pulmicort] 0.5 mg INH RTBID #30 ml 02/03/18 Rx prednisone 20 mg PO BID #10 tab 02/03/18 Rx prednisone 40 mg PO DAILY #10 tab 02/03/18 Rx azithromycin See Label Instructions .ROUTE 03/28/18 Rx .COMPLEX #6 tab prednisone 40 mg PO DAILY 3 Days tab 03/28/18 Rx Allergies Allergy/AdvReac Type Severity Reaction Status Date / Time Nvxwlbg-Fhy-Vsq Reductase Allergy Intermediate Cramping Verified 02/21/18 17:40 Inhibitor of the Muscles Review of Systems Review of Systems All systems reviewed & are unremarkable except as noted in HPI and below Exam Vital Signs (past 8 hours): - 03/28/18 04:14 03/28/18 04:28 03/28/18 05:00 Temperature 98.0 F Pulse Rate 101 H 94 H 98 H Respiratory Rate 20 16 18 Blood Pressure 148/72 H Blood Pressure [Left Arm] 134/60 Pulse Oximetry 95 97 98 03/28/18 06:00 03/28/18 06:46 03/28/18 08:20 Temperature 97.6 F Pulse Rate 89 89 101 H Respiratory Rate 18 24 16 Blood Pressure 151/65 H Blood Pressure [Left Arm] 130/65 127/66 Pulse Oximetry 96 97 94 03/28/18 09:10 Temperature Pulse Rate Respiratory Rate Blood Pressure Blood Pressure [Left Arm] Pulse Oximetry 96 Oxygen Delivery Method Nasal Cannula Oxygen Flow Rate 3 Narrative Exam Narrative: General: No acute distress, AAO x3 HEENT: PERRLA bilaterally, dry mucous membranes Neck: Supple, no LAD or JVD CV: Regular rate rhythm, no murmurs or gallops Respiratory: Expiratory wheezes, mild, noted at the bases bilaterally the rest of the lung smith sound rhonchorous GI: Positive bowel sounds, no organomegaly, nontender to palpation Musculoskeletal: Able to move all extremities bilaterally, and ambulate freely Skin: Generalized pallor, 1+ pitting edema in lower extremities bilaterally up to knees Neuro: No focal deficits, cranial nerves 2-12 were intact Psych: Mood is appropriate, patient is able to make his own decisions Objective Labs Result Diagrams: 03/28/18 05:44 03/28/18 05:44 Labs: Laboratory Results - last 24 hr 03/28/18 03/28/18 03/28/18 05:44 05:44 05:44 WBC 7.3 RBC 3.75 L Hgb 11.5 L Hct 33.8 L MCV 90.2 MCH 30.7 MCHC 34.0 RDW 13.9 Plt Count 152 Neut % (Auto) 73.3 Lymph % (Auto) 17.8 L [place] % (Auto) 5.0 Eos % (Auto) 3.2 Baso % (Auto) 0.7 Neut # (Auto) 5300 PT 11.2 INR 1.0 APTT 32 Sodium 146 H Potassium 3.9 Chloride 109 H Carbon Dioxide 26 BUN 12 Creatinine 0.90 Estimated GFR > 60.0 BUN/Creatinine Ratio 13.3 Glucose 147 H Calcium 8.7 Magnesium 2.0 Total Creatine Kinase 119 CK-MB (CK-2) 2.01 CK-MB (CK-2) Rel Index 1.7 Troponin I < 0.012 B-Natriuretic Peptide 41.2 Assessment & Plan Plan: Assessment/Plan Narrative: 1. Acute on chronic COPD/asthma exacerbation -patient continues to have mild wheezes at the bases bilaterally -received [facility] emergency department, will continue prednisone 40 mg daily x5 days total -will start patient on azithromycin 500 mg x3 days -will continue duo nebs q.4 hours scheduled and reassess in the morning for possible discharge. If still no improvement, will switch DuoNeb to q.6 hours scheduled and albuterol q.4 hours as needed 2. Tachycardia -EKG showed normal sinus rhythm with posterior fascicular block -possibly from mild dehydration -will give patient 1 L bolus at 250 cc an hour and reassess 3. BPH -continue alfuzosin 4. B12 deficiency anemia -hemoglobin 11.5, hematocrit 33.8 on admission -resume cyanocobalamin Patient wishes to be full code 60 min spent evaluating and providing care for the patient
[2018-03-28] MEDS: SODIUM CHLORIDE 0.9% 1,000 ML 1000 ML IV (09:46)
[2018-03-28] MEDS: LEVALBUTEROL 1.25 MG/0.5 ML NEB INH (10:52)
--- NOTE | 2018-03-28 11:33 | PC.NURSE ---
Addendum entered by Deana Tripp R.N. 03/28/18 13:08: Pt stood in front of recliner chair, marching in place. HR went from low 90's to as high as 108 on pulse/O2 monitor. O2 sat went from 96% on 2L NC to 93%. From sitting/resting to marching. Original Note: Day Shift- Report rec'd from LADONNA Infante in ED at 0750, Pt arrived to unit via wheelchair at 0810 after PIV placed to left hand by ED staff. O2 sat 96% on 4L NC, placed on continuous O2 monitoring. Pt settled into hospital gown and his own robe. Oriented to call light and to call for help to ambulate. Pt agreeable. Voiding qs in urinal, clear kelsey urine. IVF bolus started per Dr. Wall, 1L at 250ml/hr X1. Pt ambulated to with SBA. Settled back into recliner chair, had breakfast without difficulty. Telemetry placed per order. Plan for rotating duoneb and Xopenex treatments per RT. Monitor HR. AE clear throughout lung smith, diminished throughout. Bilateral edema to feet/ankle. pt states looks normal for him. Intact skin, only small amount of bruising noted at various stages of healing.
[2018-03-28] MEDS: AZITHROMYCIN 250 MG TABLET 500 MG PO (14:56)
[2018-03-28] MEDS: SODIUM CHLORIDE 0.9% 250 ML 100 ML IV (15:05)
--- NOTE | 2018-03-28 16:31 | PC.NURSE ---
Addendum entered by Jaelyn Ochoa R.N. 03/28/18 17:52: pt to d/c home tonight per MD. prescriptions given, nebulizer medications given per MD, d/c instructions reviewed with pt by kelly DOUGHERTY. pt escorted off unit at approximately 1753 via wheel chair with [employer] and RN escort. Original Note: SHIFT NOTE Received pt sitting up in chair. A&Ox3, pleasant and cooperative with care. essential tremors noted. pt states breathing effort has improved greatly compared to yesterday but still with some SOB with activity. breath sounds clear throughout. pt reports intermittent cough productive of small amount of clear sputum. pt received scheduled breathing treatment from RT, HR up to 100's. pt taken for a walk in hallways with spO2 at 92-93% on 2-3L O2 via NC (pt's home baseline). HR remains in 90-100's. pt verbalized eagerness to go home. awaiting MD to reassess pt.
--- NOTE | 2018-03-28 16:47 | PM.DS.1 ---
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 Patient states that he woke up around 12 30 this morning and was gasping for breath. He took his inhalers and bumped up his oxygen to 4 L, but got no relief. Patient was not even able to move around from his bed as he was severely short of breath. By 230, when patient saw no improvement in symptoms, patient presented to emergency department. At that time patient denied any fevers or chills, but he was diaphoretic. Denied any loss of consciousness, blurry vision, dizziness. Denied any recent URI like symptoms with sore throat, sick contacts, or recent travel. Patient does have chronic cough, with white to yellow mucus production, which he has not noticed any change in. Patient denies any chest pain, but has been feeling musculoskeletal pain from breathing rapid. Denies any nausea, vomiting, diarrhea, constipation, or abdominal pain. Patient has chronic BPH with urinary frequency, for he takes medication. He has chronic mild lower extremity swelling. Discharge Providers Date of admission: 03/28/18 07:39 Consults: 03/28/18 04:15 Consult to Respiratory Therapy Evaluate & Treat Comment: Physician Instructions: Evaluate and treat Discharge provider: Hillary Wall MD Discharge Date: 03/28/18 Summary Discharge Diagnosis: Acute on Chronic COPD/Asthma exacerbation, resolving Tachycardia, Resolved BPH, chronic B12 deficiency anemia, chronic Hospital Course: Emergency department, patient's vital were temperature 98.0? F, pulse 101, respiratory rate 20, blood pressure 148/72, saturating 95-97%. Expiratory wheezes were appreciated on respiratory exam. Lab work revealed WBC of 7.3, hemoglobin 11.5, hematocrit 33.8, platelets 152. Sodium was 146, potassium 3.9, chloride 109, bicarb 26, BUN 12, creatinine 0.9, glucose 147. Patient was given DuoNeb EN route to the hospital, as well as 3 more treatments in the emergency department. He also received Solu-Medrol x1. His saturations were normal on 3 L (on which he is on home). Nevertheless, when patient was getting out of bed, patient became tachycardic up to 130s. H his wheezes were gone at that time, but his lungs sound rhonchorous. Patient was given 1 more DuoNeb treatment, but tachycardia persisted on ambulation, and therefore patient was admitted as observation to medical-surgical unit for further management of COPD/asthma exacerbation. Once admitted, patient was given xopinex and duoneb therapy, alternating Q4H. He was also started on prednisone 40mg PO Daily for 5 days and Azithromycin 500mg PO x3 days. His SOB significantly improved with the treatment. He was able to ambulate with 2-3L NC O2, and keeping saturation >93%. Patient was discharged home with 4 more days of Prednisone and 2 more days of azithromycin. He was also told to resume all his COPD home medications as well as continue the use of home oxygen, 2-3L at all times Patient was found to be dehydrated and tachycardic while ambulating on admission. He was given 1250cc NS, running at 100-250cc/hr. Once rehydrated, patient was able to ambulate with HR stable, between 90-105 and his urine output has been stable. He was encouraged to continue PO fluid intake at home. Exam Vital Signs (past 8 hours): - 03/28/18 09:10 03/28/18 09:44 03/28/18 10:53 Temperature Pulse Rate 86 Respiratory Rate Blood Pressure Pulse Oximetry 96 95 98 03/28/18 11:28 03/28/18 11:29 03/28/18 12:05 Temperature Pulse Rate 86 99 H Respiratory Rate 21 Blood Pressure Pulse Oximetry 83 L 96 96 03/28/18 13:00 03/28/18 13:37 03/28/18 14:08 Temperature 97.8 F Pulse Rate 103 H 94 H Respiratory Rate 16 Blood Pressure 141/75 H Pulse Oximetry 97 95 96 03/28/18 14:09 03/28/18 15:15 03/28/18 15:22 Temperature 97.9 F Pulse Rate 95 H 92 H 87 Respiratory Rate 20 19 Blood Pressure 140/78 Pulse Oximetry 96 97 03/28/18 16:26 Temperature Pulse Rate Respiratory Rate Blood Pressure Pulse Oximetry 92 Oxygen Delivery Method Nasal Cannula Oxygen Flow Rate 2 Narrative Exam Narrative: General: No acute distress, AAO x3 HEENT: PERRLA bilaterally, dry mucous membranes Neck: Supple, no LAD or JVD CV: Regular rate rhythm, no murmurs or gallops Respiratory: Lungs CTA BL, wheezes resolved. GI: Positive bowel sounds, no organomegaly, nontender to palpation Musculoskeletal: Able to move all extremities bilaterally, and ambulate freely Skin: Generalized pallor, 1+ pitting edema in lower extremities bilaterally up to knees Neuro: No focal deficits, cranial nerves 2-12 were intact Psych: Mood is appropriate, patient is able to make his own decisions Objective Labs Result Diagrams: 03/28/18 05:44 03/28/18 05:44 Labs: Laboratory Results - last 24 hr 03/28/18 03/28/18 03/28/18 05:44 05:44 05:44 WBC 7.3 RBC 3.75 L Hgb 11.5 L Hct 33.8 L MCV 90.2 MCH 30.7 MCHC 34.0 RDW 13.9 Plt Count 152 Neut % (Auto) 73.3 Lymph % (Auto) 17.8 L [place] % (Auto) 5.0 Eos % (Auto) 3.2 Baso % (Auto) 0.7 Neut # (Auto) 5300 PT 11.2 INR 1.0 APTT 32 Sodium 146 H Potassium 3.9 Chloride 109 H Carbon Dioxide 26 BUN 12 Creatinine 0.90 Estimated GFR > 60.0 BUN/Creatinine Ratio 13.3 Glucose 147 H Calcium 8.7 Magnesium 2.0 Total Creatine Kinase 119 CK-MB (CK-2) 2.01 CK-MB (CK-2) Rel Index 1.7 Troponin I < 0.012 B-Natriuretic Peptide 41.2 Discharge Plan Discharge Plan Patient Disposition: Home Discharge Med Rec/Prescriptions Prescriptions: New azithromycin 250 mg tablet See Label Instructions .ROUTE .COMPLEX Qty: 6 RF: 0 azithromycin [Zithromax Z-González] 250 mg Tablet 500 mg PO DAILY Qty: 4 RF: 0 prednisone 20 mg Tablet 40 mg PO DAILY Qty: 8 RF: 0 Continue albuterol sulfate 90 mcg/actuation Hfa Aerosol Inhaler 2 puff Inhalation BID RF: 0 albuterol sulfate 2.5 mg /3 mL (0.083 %) Solution For Nebulization 3 ml Inhalation BID RF: 0 alfuzosin 10 mg Tablet Extended Release 24 Hr 10 mg PO DAILY RF: 0 olodaterol 2.5 mcg/actuation Mist 2 puff Inhalation QDAY RF: 0 omeprazole 20 mg capsule 20 mg PO BID RF: 0 azithromycin 250 mg tablet 250 mg PO DAILY PRN (Reason: part of Respiratory home KIT) RF: 0 cyanocobalamin-cobamamide [B12] 5,000-100 mcg Lozenge 1,000 mg Sublingual DAILY RF: 0 ibuprofen 800 mg Tablet 800 mg PO TID PRN (Reason: pain) RF: 0 potassium gluconate 500 mg (83 mg) Tablet 500 mg PO DAILY RF: 0 Provider Discharge Instructions Diet: Regular Activity: ambulate with a walker. Use O2 at all times Visit Report/Discharge Packet Instructions: DI for Chronic Obstructive Pulmonary Disease, Prednisone, Azithromycin Visit Report Forms: Stroke Signs & Symptoms Discharge Data Attending Provider: Hillary Wall Admit Date/Time: 03/28/18 07:39 Quality VTE Deep Vein Thrombosis/Pulmonary Embolism Present on Admission: No
== END 2018-03-30 12:43 | disposition home or self-care (01) ==
LOC: ED 07:32 → AC 08:37
PROVIDERS: Admitting Provider Internal Medicine; Emergency Provider Emergency Medicine; Visit Provider Internal Medicine
DX: J44.1 Chronic obstructive pulmonary disease with (acute) exacerbation (principal); R06.02 Shortness of breath; Z87.891 Personal history of nicotine dependence; E86.0 Dehydration; R00.0 Tachycardia, unspecified; D51.3 Other dietary vitamin B12 deficiency anemia; G25.0 Essential tremor
CPT/HCPCS: 36415; 36600; 71045; 71275; 80048; 81003; 82550; 82553; 82805; 83605; 83735; 83880; 84145; 84484; 85025; 85610; 85730; 87040; 87070; 87205; 92610; 93005; 93010; 93306; 94640; 94760; 96360; 96374; 97116; 97161; 97530; 99283; 99285; G0378; J1644; J2270; J2930; J7613; J7614; Q9967

== ENCOUNTER 2018-03-28 20:36 | Observation (INO) | payer MEDICARE, OTHER, SELFPAY ==
[2018-03-28 09:18] VITALS: BMI 23.8
[2018-03-28 20:42] VITALS: BP 139/72; PULSE 120; RESP 20; TEMP 36.8; O2SAT 98; BMI 24.2
--- NOTE | 2018-03-28 21:08 | DI.CT.S_ITS ---
PROCEDURE: CT ANGIO CHEST PE PROTOCOL INDICATIONS: shortness of breath TECHNIQUE: After the administration of intravenous contrast, 2 mm thick sections acquired from the pulmonary apices to the posterior costophrenic angles. 3-dimensional maximum intensity projection (MIP) coronal and sagittal reformats were then acquired through the thorax. For radiation dose reduction, the following was used: automated exposure control, adjustment of mA and/or kV according to patient size. COMPARISON: FINDINGS: Image quality: Excellent. Pulmonary arteries: Pulmonary arteries are normal in size, and demonstrate no intraluminal filling defects to suggest central pulmonary embolism. Lungs and pleura: Lungs are clear. No pleural effusions or pneumothorax. Central and peripheral airways are patent. Mediastinum: Heart size is normal, without pericardial effusion. No mediastinal or hilar adenopathy. Thoracic aorta is normal in caliber and enhancement. Scattered atheromatous calcifications are present within the aortic arch. Esophagus is normal in caliber, without hiatal hernia. Bones and chest wall: No suspicious bony lesions. Ribs and thoracic spine appear intact throughout. Thyroid gland is unremarkable. No axillary or supraclavicular adenopathy. Abdomen: There is likely a cyst on the upper pole of the left kidney which is incompletely characterized on this limited view of the abdomen. Visualized upper abdominal solid organs appear normal in the early arterial phase of enhancement. IMPRESSION: 1. No acute pulmonary embolus. Dictated by: Lynda Carnes M.D. on 03/28/2018 at 21:41 Approved by: Lynda Carnes M.D. on 03/28/2018 at 21:46
[2018-03-28 21:55] LABS: Add Manual Diff / Slide Review NO; Eosinophils Percent Auto 0.1 % (2-4); Hematocrit 32.9 % (41-53); Lymphocytes Percent Auto 7.8 % (25-40); Mean Corpuscular HGB Conc 33.5 % (30-36); Mean Corpuscular Hemoglobin 30.4 PG (26-34); Mean Corpuscular Volume 90.5 fL (80-100); Monocytes Percent Auto 6.2 % (3-14); Neutrophils Absolute Auto 6400 /uL (3000-5900); Neutrophils Percent Auto 84.9 % (50-75); Platelet Count 154 X10^3/uL (150-400); Red Blood Cell Count 3.63 X10^6/uL (4.5-5.9); Red Cell Distribution Width 13.8 % (11.6-14.8); White Blood Cell Count 7.6 X10^3/uL (4.5-11.0)
[2018-03-28 22:04] LABS: INR 1.1 (0.9-1.3); Prothrombin Time 12.1 SECONDS (10.1-12.7)
[2018-03-28 22:06] LABS: PTT Partial Thromboplastin Tim 31 SECONDS (26.4-36.2)
[2018-03-28 22:10] LABS: Blood Urea Nitrogen 15 mg/dL (9-20); Calcium 9.2 mg/dL (8.4-10.2); Carbon Dioxide 23 mmol/L (22-32); Chloride 107 mmol/L (98-107); Creatine Kinase 124 U/L (55-170); Estimated Glomerular Filt Rate > 60.0 mL/min (>60); Glucose 132 mg/dL (80-110); HEMOLYSIS < 15 (0-50); Magnesium 1.8 mg/dL (1.6-2.3); Sodium 145 mmol/L (137-145)
[2018-03-28 22:22] LABS: Troponin I 0.013 ng/mL (0.01-0.034)
[2018-03-28 22:24] VITALS: BP 127/69; PULSE 106; RESP 17; O2SAT 97
[2018-03-28 22:25] LABS: CKMB % Relative Index 1.7 % (1.5-5.0); Creatine Kinase MB 2.16 ng/mL (<2.37); Procalcitonin < 0.05 ng/mL (<0.5)
--- NOTE | 2018-03-28 22:46 | ED_ITS ---
HPI - SOB/Dyspnea General Chief Complaint: Shortness of Breath/Dyspnea Stated Complaint: SOB Time Seen by Provider: 03/28/18 22:00 Source: patient and EMS Mode of arrival: EMS Limitations: no limitations History of Present Illness This is a 72-year-old male who comes to the emergency department with complaint of shortness of breath. Patient was seen by myself early this morning for suspected COPD exacerbation. Patient states that he was discharged about 6 o' clock this evening. He was feeling better he went home about 2 hr later started to feel very short of breath that have difficulty breathing. He tried some of the albuterol nebulized without any success. Patient contacted EMS and was transported back to the emergency department. Patient states he gets very shaky and has a lot of palpitations when it occurs. He continues to have slightly elevated heart rate here in the emergency department. Sitting and resting in bed he feels better after receiving a neb treatment EN route with EMS. Patient states that he received a prescription for prednisone although he has not filled it. He did have steroids during the day though. He denies any prior cardiac history. States the majority of his issues are long related. Related Data Home Medications Medication Instructions Recorded Confirmed albuterol sulfate 2 puff INHALATION BID 10/06/17 03/28/18 albuterol sulfate 3 ml INHALATION BID 10/06/17 03/28/18 alfuzosin 10 mg PO DAILY 10/06/17 03/28/18 olodaterol 2 puff INHALATION QDAY 10/06/17 03/28/18 omeprazole 20 mg PO BID 10/06/17 03/28/18 azithromycin 250 mg PO DAILY PRN 01/31/18 03/28/18 cyanocobalamin-cobamamide [B12] 1,000 mg SUBLINGUAL DAILY 02/01/18 03/28/18 ibuprofen 800 mg PO TID PRN 03/28/18 03/28/18 potassium gluconate 500 mg PO DAILY 03/28/18 03/28/18 Previous Rx's Medication Instructions Recorded azithromycin See Label Instructions .ROUTE 03/28/18 .COMPLEX #6 tab azithromycin [Zithromax Z-González] 500 mg PO DAILY #4 tab 03/28/18 ipratropium-albuterol 3 ml INH 0700,1500,2300 #30 ml 03/28/18 prednisone 40 mg PO DAILY #8 tab 03/28/18 Allergies Allergy/AdvReac Type Severity Reaction Status Date / Time Nmclayi-[id number]-Cjy Reductase Allergy Intermediate Cramping Verified 02/21/18 17:40 Inhibitor of the Muscles Review of Systems Review of Systems All systems reviewed & are unremarkable except as noted in HPI and below Constitutional Denies chills and Denies fever(s) ENT Ears, Nose, Mouth, and Throat: Denies nasal congestion and Denies nasal discharge Cardiovascular Denies chest pain, Reports diaphoresis, Denies syncope, Reports rapid heart rate , Denies edema, Denies irregular heart rhythm, Denies lightheadedness, Denies palpitations, Reports dyspnea, Reports dyspnea on exertion and Denies orthopnea Respiratory Denies chest congestion, Denies cough, Denies excessive phlegm production, Reports dyspnea, Reports dyspnea on exertion and Reports wheezing Gastrointestinal Gastrointestinal: Denies abdominal pain, Denies change in bowel habits, Denies constipation, Denies diarrhea, Denies nausea and Denies vomiting Neurologic Denies syncope Endocrine Denies palpitations Allergic/Immunologic Reports wheezing PFSH Medical History COPD (chronic obstructive pulmonary disease) (Acute) Asthma (Acute) BPH (benign prostatic hyperplasia) (Chronic) Bilateral leg cramps (Chronic) Chronic anemia (Chronic) Essential tremor (Chronic) Surgical History H/O sinus surgery (Chronic) Status post right foot surgery (Chronic) Social History household members: none Smoking Status: Former smoker alcohol intake: current Exam Narrative Exam Narrative: GENERAL: Alert and oriented x three, thin elderly male in mild distress HEENT: Head normocephalic, atraumatic, EOMI, pupils reactive, face symmetric, moist mucous membranes NECK: Supple, full range of motion CARDIOVASCULAR: Tachycardic but Regular rate and rhythm without murmurs, rubs or gallops. No JVD. RESPIRATORY: Breath sounds course but equal bilaterally, no wheezes, no rales or rhonchi. Patient does have tachypnea. The able to speak in full sentences but is pursed lip breathing. ABDOMEN: Soft, nontender. Normoactive bowel sounds all 4 quadrants. No guarding or rebound, rigidity, no mass EXTREMITIES: Normal range of motion, no clubbing or edema. Neurovascularly intact NEUROLOGICAL: Cranial nerves II through XII grossly intact. Moving all extremities SKIN: Warm, dry, no petechiae, no rashes or lesions. Initial Vital Signs Initial Vital Signs: Vital Signs Temperature 98.2 F 03/28/18 20:42 Pulse Rate 120 H 03/28/18 20:42 Respiratory Rate 20 03/28/18 20:42 Blood Pressure 139/72 03/28/18 20:42 Pulse Oximetry 98 03/28/18 20:42 Course Orders Ordered: ED Orders 03/28/18 21:08 Consult to Respiratory Therapy Evaluate & Treat CT angio chest PE protocol Stat 03/28/18 21:38 B Type Natriuretic Peptide Stat Basic Metabolic Panel Stat Complete Blood Count AUTO DIFF Stat Lactate (Lactic Acid) Stat Magnesium Stat Partial Thromboplastin Time Stat Procalcitonin Stat Prothrombin Time INR Stat Troponin & CK Cardiac Panel Stat 03/28/18 22:58 Blood Culture Stat 03/28/18 23:57 Arterial Blood Gas Stat 03/29/18 EC echo doppler complete Routine Sputum Culture Routine 03/29/18 00:02 EKG-12 Lead Stat 03/29/18 01:22 Consult to Speech Therapy Evaluate & Treat 03/29/18 01:52 Lactate 4HR (Lactic Acid Rflx) Stat Acetaminophen (Tylenol) 650 mg PO Q6HR PRN PRN Reason: As Needed for Fever/Mild Pain Heparin Sodium (Porcine) (Heparin) 5,000 unit SUBCUT BID RASHEED Sodium Chloride (Normal Saline 0.9%) 1,000 mls @ 75 mls/hr IV CONT RASHEED Non-Formulary Medication (Alfuzosin [Alfuzosin]) 10 mg PO DAILY [facility] Ondansetron HCl (Zofran Odt) 4 mg PO Q8HR PRN PRN Reason: Nausea And Vomiting Prednisone (Deltasone) 40 mg PO DAILY [facility] Discontinued Medications Sodium Chloride (Normal Saline 0.9%) 1,000 mls @ 1,000 mls/hr IV BOLUS ONE Stop: 03/29/18 00:33 Last Infusion: 03/29/18 00:45 Dose: 0 mls/hr Admin: 03/28/18 23:36 Dose: 1,000 mls/hr Consultations Consultation #1: Dianne accepts for admission. Requests ABG, patient did not have one done on admission earlier today. Patient has elevated lactate. CTA PE protocal negative for PE. Vital Signs - 8 hr 03/28/18 20:42 03/28/18 22:24 03/28/18 23:38 Temperature 98.2 F Pulse Rate 120 H 106 H 92 H Respiratory Rate 20 17 19 Blood Pressure 139/72 Blood Pressure [Right Arm] 127/69 130/74 Pulse Oximetry 98 97 96 03/29/18 02:34 Temperature 97.5 F L Pulse Rate 87 Respiratory Rate 30 H Blood Pressure 149/79 H Blood Pressure [Right Arm] Pulse Oximetry 96 MDM - SOB/Dyspnea Lab Data Attestation: I reviewed the patient's lab results. Result diagrams: 03/28/18 21:38 03/28/18 21:38 Lab Results 03/28/18 03/28/18 03/28/18 Range/Units 21:38 21:38 21:38 WBC 7.6 (4.5-11.0) X10^3/uL RBC 3.63 L (4.5-5.9) X10^6/uL Hgb 11.0 L (13.5-17.5) g/dL Hct 32.9 L (41-53) % MCV 90.5 (80-100) fL MCH 30.4 (26-34) PG MCHC 33.5 (30-36) % RDW 13.8 (11.6-14.8) % Plt Count 154 (150-400) X10^3/uL Neut % (Auto) 84.9 H (50-75) % Lymph % (Auto) 7.8 L (25-40) % [place] % (Auto) 6.2 (3-14) % Eos % (Auto) 0.1 L (2-4) % Baso % (Auto) 1.0 (0-2) % Neut # (Auto) 6400 H (3686-9930) /uL PT 12.1 (10.1-12.7) SECONDS INR 1.1 (0.9-1.3) APTT 31 (26.4-36.2) SECONDS ABG pH (7.35-7.45) ABG pCO2 (35-45) mmHg ABG pO2 (80-105) mmHg ABG HCO3 (23-27) mmol/L ABG Total CO2 (23-27) mmol/L ABG O2 Saturation (95-100) % ABG Base Excess (-2-3) mmol/L FiO2 Sodium 145 (137-145) mmol/L Potassium 4.0 (3.4-5.1) mmol/L Chloride 107 (98-107) mmol/L Carbon Dioxide 23 (22-32) mmol/L BUN 15 (9-20) mg/dL Creatinine 1.00 (0.66-1.25) mg/dL Estimated GFR > 60.0 (>60) mL/min BUN/Creatinine Ratio 15.0 (6-22) Glucose 132 H (80-110) mg/dL Lactate (0.7-2.1) mmol/L Calcium 9.2 (8.4-10.2) mg/dL Magnesium 1.8 (1.6-2.3) mg/dL Total Creatine Kinase 124 (55-170) U/L CK-MB (CK-2) 2.16 (<2.37) ng/mL CK-MB (CK-2) Rel Index 1.7 (1.5-5.0) % Troponin I 0.013 (0.01-0.034) ng/mL B-Natriuretic Peptide 147.0 H (<100) Procalcitonin (<0.5) ng/mL 03/28/18 03/28/18 03/29/18 Range/Units 21:38 21:38 00:41 WBC (4.5-11.0) X10^3/uL RBC (4.5-5.9) X10^6/uL Hgb (13.5-17.5) g/dL Hct (41-53) % MCV (80-100) fL MCH (26-34) PG MCHC (30-36) % RDW (11.6-14.8) % Plt Count (150-400) X10^3/uL Neut % (Auto) (50-75) % Lymph % (Auto) (25-40) % [place] % (Auto) (3-14) % Eos % (Auto) (2-4) % Baso % (Auto) (0-2) % Neut # (Auto) (4594-9207) /uL PT (10.1-12.7) SECONDS INR (0.9-1.3) APTT (26.4-36.2) SECONDS ABG pH 7.42 (7.35-7.45) ABG pCO2 38.1 (35-45) mmHg ABG pO2 71 L (80-105) mmHg ABG HCO3 25 (23-27) mmol/L ABG Total CO2 26 (23-27) mmol/L ABG O2 Saturation 94 L (95-100) % ABG Base Excess 0.0 (-2-3) mmol/L FiO2 0.28 Sodium (137-145) mmol/L Potassium (3.4-5.1) mmol/L Chloride (98-107) mmol/L Carbon Dioxide (22-32) mmol/L BUN (9-20) mg/dL Creatinine (0.66-1.25) mg/dL Estimated GFR (>60) mL/min BUN/Creatinine Ratio (6-22) Glucose (80-110) mg/dL Lactate 4.0 H (0.7-2.1) mmol/L Calcium (8.4-10.2) mg/dL Magnesium (1.6-2.3) mg/dL Total Creatine Kinase (55-170) U/L CK-MB (CK-2) (<2.37) ng/mL CK-MB (CK-2) Rel Index (1.5-5.0) % Troponin I (0.01-0.034) ng/mL B-Natriuretic Peptide (<100) Procalcitonin < 0.05 (<0.5) ng/mL 03/29/18 Range/Units 01:52 WBC (4.5-11.0) X10^3/uL RBC (4.5-5.9) X10^6/uL Hgb (13.5-17.5) g/dL Hct (41-53) % MCV (80-100) fL MCH (26-34) PG MCHC (30-36) % RDW (11.6-14.8) % Plt Count (150-400) X10^3/uL Neut % (Auto) (50-75) % Lymph % (Auto) (25-40) % [place] % (Auto) (3-14) % Eos % (Auto) (2-4) % Baso % (Auto) (0-2) % Neut # (Auto) (0308-3901) /uL PT (10.1-12.7) SECONDS INR (0.9-1.3) APTT (26.4-36.2) SECONDS ABG pH (7.35-7.45) ABG pCO2 (35-45) mmHg ABG pO2 (80-105) mmHg ABG HCO3 (23-27) mmol/L ABG Total CO2 (23-27) mmol/L ABG O2 Saturation (95-100) % ABG Base Excess (-2-3) mmol/L FiO2 Sodium (137-145) mmol/L Potassium (3.4-5.1) mmol/L Chloride (98-107) mmol/L Carbon Dioxide (22-32) mmol/L BUN (9-20) mg/dL Creatinine (0.66-1.25) mg/dL Estimated GFR (>60) mL/min BUN/Creatinine Ratio (6-22) Glucose (80-110) mg/dL Lactate 1.8 (0.7-2.1) mmol/L Calcium (8.4-10.2) mg/dL Magnesium (1.6-2.3) mg/dL Total Creatine Kinase (55-170) U/L CK-MB (CK-2) (<2.37) ng/mL CK-MB (CK-2) Rel Index (1.5-5.0) % Troponin I (0.01-0.034) ng/mL B-Natriuretic Peptide (<100) Procalcitonin (<0.5) ng/mL Urine Dip Bedside Urine Glucose Negative Bedside Urine Bilirubin - Negative Bedside Urine Ketone - Negative Urine Specific [place] 1.015 Bedside Urine Occult Blood - Negative Bedside Urine pH 6.0 Bedside Urine Protein - Negative Bedside Urine Urobilinogen - Negative Bedside Urine Nitrite - Negative Bedside Urine Leukocytes - Negative Esterase ABG Data ABG results: 7.41, pCO2 of 38, PO2 of 71, bicarb of 24 with a SpO2 of 94%. Attestation: I personally reviewed and interpreted this ABG as follows: Interpretation: Normal ABG with no hypoxia or signs of acute respiratory a metabolic changes. Imaging Data CT PE protocal: Radiologist's impression: [address] [address] [address] Scan Report Signed Patient: Tremaine Lane LMR#: [id number] : 4Acct:[id number] Age/Sex: 72 / MDate of Service: 03/28/18 Loc: ED Accession Number: [id number] Procedure: CT angio chest PE protocol Ordering Provider: Alyssa Adair D.O. PROCEDURE: CT ANGIO CHEST PE PROTOCOL INDICATIONS: shortness of breath TECHNIQUE: After the administration of intravenous contrast, 2 mm thick sections acquired from the pulmonary apices to the posterior costophrenic angles. 3-dimensional maximum intensity projection (MIP) coronal and sagittal reformats were then acquired through the thorax. For radiation dose reduction, the following was used: automated exposure control, adjustment of mA and/or kV according to patient size. COMPARISON: FINDINGS: Image quality: Excellent. Pulmonary arteries: Pulmonary arteries are normal in size, and demonstrate no intraluminal filling defects to suggest central pulmonary embolism. Lungs and pleura: Lungs are clear. No pleural effusions or pneumothorax. Central and peripheral airways are patent. Mediastinum: Heart size is normal, without pericardial effusion. No mediastinal or hilar adenopathy. Thoracic aorta is normal in caliber and enhancement. Scattered atheromatous calcifications are present within the aortic arch. Esophagus is normal in caliber, without hiatal hernia. Bones and chest wall: No suspicious bony lesions. Ribs and thoracic spine appear intact throughout. Thyroid gland is unremarkable. No axillary or supraclavicular adenopathy. Abdomen: There is likely a cyst on the upper pole of the left kidney which is incompletely characterized on this limited view of the abdomen. Visualized upper abdominal solid organs appear normal in the early arterial phase of enhancement. IMPRESSION: 1. No acute pulmonary embolus. Dictated by: Lynda Carnse M.D. on 03/28/2018 at 21:41 Approved by: Lynda Carnes M.D. on 03/28/2018 at 21:46 ECG Data Attestation: I personally reviewed and interpreted this ECG as follows: Interpretation: Sinus rhythm no ST changes appreciated. AVL the have we placement. Rate of 84, SC 166, QRS 99 QTC of 401. MDM Narrative Medical decision making narrative: 72-year-old male who came in with suspected COPD exacerbation. He is not wheezy but any time he tries to get up with the around he is tachycardic very short of breath and shaky. Patient does have an elevated lactate which makes me suspect that he is working quite hard to breathe. Patient does not have a white count, hemoglobin is baseline. Electrolytes and renal function are appropriate. Patient's troponin is normal. He does not have a PE on CTA nor does he have any changes to his lungs such as pleural effusion pneumothorax or atelectasis/infection. No pericardial effusion. Spoke with the hospitalist on service and patient is accepted for admission. They did request an ABG which does not show any hypoxia or CO2 retention patient's ABG appears fairly normal. Blood cultures were obtained, patient also had urine which did not show signs of infection and repeat lactate is ordered. Discharge Plan Departure Patient Disposition: Admitted as Observation Clinical Impression: Chronic obstructive pulmonary disease Discharge Date/Time: 03/29/18 01:06 Interventions: ED Discharge Assessment Last Done: 03/29/18 02:18 Admit Date/Time: 03/29/18 01:06 Admit Provider: Romulo Dean
[2018-03-28] MEDS: SODIUM CHLORIDE 0.9% 1,000 ML 1000 ML IV (23:36)
[2018-03-28 23:38] VITALS: BP 130/74; PULSE 92; RESP 19; O2SAT 96
[2018-03-29] VITALS (12 sets, daily range): BP systolic 118–150; BP diastolic 68–84; PULSE 22–87; RESP 18–30; TEMP 36.4–36.7; O2SAT 93–97; BMI 24.5
--- NOTE | 2018-03-29 | DI.ECHO.S_ITS ---
[facility]---------+ [facility] +---------+ : : [address] : [place] : : : : [id number] : : : : Phone: [phone] Echocardiogram Report + + :Name: DEBBIE BRADEN Study Date: 03/29/2018 Height: 66 in : :[facility] Exam Location: IS Weight: 150 lb : : Gender: Male BSA: 1.8 m2 : :: 1945 Age: 72 yrs BP: 149/79 mmHg: :Reason For Study: EXERTIONAL DYSPNEA : : Performed By: Eleazar Padilla : :Referring: [email or web address] : + + Interpretation Summary The ejection fraction is estimated to be 60-65%. There is no significant valvular heart disease. Procedure: A two-dimensional transthoracic echocardiogram with color flow and Doppler was performed. The study quality was technically adequate. There is no prior echocardiogram noted for this patient. The patient was in normal sinus rhythm during the exam. Left Ventricle: The left ventricle is normal in size. There is normal left ventricular wall thickness. The ejection fraction is estimated to be 60-65%. There are no focal wall motion abnormalities. Right Ventricle: The right ventricle is normal in size and function. Atria: Both atria are normal in size. The interatrial septum is intact with no evidence for an atrial septal defect. Mitral Valve: The mitral valve is normal in structure and function. There is no mitral regurgitation noted. Aortic Valve: The aortic valve is normal in structure and function. The aortic valve is trileaflet. The aortic valve opens well. No aortic regurgitation is present. Tricuspid Valve: The tricuspid valve is normal in structure and function. No tricuspid regurgitation. Pulmonary artery pressures cannot be estimated because of the lack of a measurable TR jet velocity. Pulmonic Valve: The pulmonic valve is normal in structure and function. There is mild pulmonic regurgitation. Great Vessels: The aortic root is normal size. The dimensions of the ascending aorta are normal. The pulmonary artery is normal size. The IVC is dilated (diameter is greater than 2.1 cm) yet it collapses greater than 50% with a sniff. This suggests a right atrial pressure of 8 mm Hg. Pericardium/ Pleura There is no pericardial effusion. There is no pleural effusion. MMode/2D Measurements & Calculations LVIDd: 5.1 cm Ao root diam: 3.4 cm LVIDs: 3.3 cm Aortic Jxn: 2.7 cm FS: 36.4 % asc Aorta Diam: 3.3 cm EPSS: 0.33 cm IVSd: 0.89 cm LVPWd: 1.0 cm LV alvarez. diameter/BSA (cm/m^2): 2.9 LV sys. diameter/BSA (cm/m^2): 1.8 LA dimension: 2.9 cm RA long axis: 4.7 cm LA A2 area: 14.6 cm2 RA area: 15.4 cm2 LA A4 area: 15.9 cm2 RA vol: 43.0 ml LA length (vol): 4.6 cm RA : 24.3 ml/m2 LA vol: 42.6 ml IVC diam: 2.6 cm LA vol index: 24.1 ml/m2 Doppler Measurements & Calculations Ao V2 max: 124.4 cm/sec LVOT Max Devang: 87.8 cm/sec Ao V2 mean: 87.4 cm/sec LV V1 max P.1 mmHg Ao max P.2 mmHg LV V1 VTI: 19.1 cm Ao mean P.3 mmHg sev ratio: 0.77 Ao V2 VTI: 24.7 cm MV E max devang: 79.7 cm/sec PA V2 max: 82.6 cm/sec MV A max devang: 76.6 cm/sec PA V2 mean: 63.9 cm/sec MV E/A: 1.0 PA mean P.8 mmHg Med Peak E' Devang: 5.3 cm/sec PA pr(Accel): 44.1 mmHg E/E' med: 15.1 PA Accel Time: 0.07 sec Lat Peak E' Devang: 7.7 cm/sec E/E' lat: 10.3 E/e' average: 12.7 MV dec time: 0.14 sec Pulm A Revs Devang: 51.2 cm/sec Reading Physician:12:45 PM
--- NOTE | 2018-03-29 00:30 | PM.HP.1 ---
History of Present Illness Date Patient Seen: 03/29/18 Time Patient Seen: 00:30 Chief complaint: Shortness of breath Narrative: The patient is a 72-year-old male who presented to the ED on 03/28 out of concern for worsening dyspnea. Patient was discharged from the hospital at 6 pm on 03/28, he was treated acutely for COPD exacerbation. Patient is known to have chronic respiratory failure with hypoxia and hypercapnia w/ supplemental O2 dependence, COPD, asthma, recurrent pneumonia, prior h/o heavy tobacco use and exposure to toxic fumes. Patient felt fairly well earlier in the day; however, upon return he reports experiencing shaking and progressive shortness of breath. Reports presence of a fever, but not able to provide exact temperature. Associated symptoms include cough w/ phlegm production, palpitations, and slight diaphoresis. He noted himself feeling more anxious due to inability to breath. Patient is not known to have underlying cardiac history; however, he does have peripheral edema, which he notes to have been worsening. He is not on a diuretic. Reports progressively worsening exertional dyspnea over the past 6 months, as well as activity intolerance and physical deconditioning. Known to have recurrent pneumonia, most recently treated in the December 2017, by report. Reports adherence w/ CPAP; however, now w/ supplemental oxygen. Denies exposure to ill contact. Albuterol was ineffective in symptom relief. In ED patient underwent a CTA of the chest was not indicative of any acute findings, such as pulmonary emboli, pleural effusions, pneumothorax, pericardial effusion, or hiatal hernia. ABG: pH 7.42, pCO2 38.1, pO2 71, HCO3 25. Lactate 4.0. Serial Trop WNL. EKG non-ischemic. BNP 147. Procalcitonin< 0.05. Patient History Medical History COPD (chronic obstructive pulmonary disease) (Acute) Asthma (Acute) BPH (benign prostatic hyperplasia) (Chronic) Bilateral leg cramps (Chronic) Chronic anemia (Chronic) Essential tremor (Chronic) Surgical History H/O sinus surgery (Chronic) Status post right foot surgery (Chronic) Family & Social History Family History: Reviewed 03/29/18 by TYRA Rose Social History: household members none Safety & Behavioral: Feels Safe in Current Yes Environment Been Physically Hurt or No Threatened By a Person Tobacco & Substance use: Tobacco type cigarettes, 1-3 ppd for 35+ yrs, quit in 1999 Smoking Status Former smoker alcohol intake current alcohol intake frequency holiday/special occasion Substance Use Type does not use Meds Home Medications Medication Instructions Recorded Confirmed Type albuterol sulfate 2 puff INHALATION BID 10/06/17 03/28/18 History albuterol sulfate 3 ml INHALATION BID 10/06/17 03/28/18 History alfuzosin 10 mg PO DAILY 10/06/17 03/28/18 History olodaterol 2 puff INHALATION QDAY 10/06/17 03/28/18 History omeprazole 20 mg PO BID 10/06/17 03/28/18 History azithromycin 250 mg PO DAILY PRN 01/31/18 03/28/18 History cyanocobalamin-cobamamide [B12] 1,000 mg SUBLINGUAL DAILY 02/01/18 03/28/18 History azithromycin See Label Instructions .ROUTE 03/28/18 03/28/18 Rx .COMPLEX #6 tab azithromycin [Zithromax Z-González] 500 mg PO DAILY #4 tab 03/28/18 Rx ibuprofen 800 mg PO TID PRN 03/28/18 03/28/18 History ipratropium-albuterol 3 ml INH 0700,1500,2300 #30 ml 03/28/18 Rx potassium gluconate 500 mg PO DAILY 03/28/18 03/28/18 History prednisone 40 mg PO DAILY #8 tab 03/28/18 Rx Allergies Allergy/AdvReac Type Severity Reaction Status Date / Time Ldgmisx-Nsy-Iyw Reductase Allergy Intermediate Cramping Verified 03/29/18 03:59 Inhibitor of the Muscles Review of Systems Review of Systems All systems reviewed & are unremarkable except as noted in HPI and below Exam Vital Signs (past 8 hours): - 03/28/18 20:42 03/28/18 22:24 03/28/18 23:38 Temperature 98.2 F Pulse Rate 120 H 106 H 92 H Respiratory Rate 20 17 19 Blood Pressure 139/72 Blood Pressure [Right Arm] 127/69 130/74 Pulse Oximetry 98 97 96 Oxygen Delivery Method Nasal Cannula Oxygen Flow Rate 2 Narrative Exam Narrative: Constitutional: Moderate respiratory distress, cooperative Head: NC / AT EENT: pupils equal and reactive, gaze conjugate, no sinus drainage, sclera anicteric Normal external ears bilaterally, hearing acuity diminished Normal external nose, no drainage, no epistaxis Oropharynx without exudate Neck: Supple, no JVD CV: S1S2, no murmur, tachycardic on youth nutritional monitor Respiratory: Tachypneic, RR mid 20s, mildly dyspneic, partial abdominal breathing, RLL + crackles and expiratory wheeze - posteriorly RUL/RMM/LLL diminished; supplemental oxygen; labored respiratory effort Abdomen: Soft, NT, ND, normoactive BS, no organomegaly Extremities: Compression socks intact, BLE edema (pitting) 2+ / 3+ (ankles) Musc: ROM intact of upper and lower extremities, adequate muscle bulk and tone Skin: No overt bruising, ulcers, or open lesions Neuro: Alert and orient x3, fair historian / forgetful of details, no unilateral weakness or facial asymmetry Objective Labs Result Diagrams: 03/28/18 21:38 03/28/18 21:38 Labs: Laboratory Results - last 24 hr 03/28/18 03/28/18 03/28/18 21:38 21:38 21:38 WBC 7.6 RBC 3.63 L Hgb 11.0 L Hct 32.9 L MCV 90.5 MCH 30.4 MCHC 33.5 RDW 13.8 Plt Count 154 Neut % (Auto) 84.9 H Lymph % (Auto) 7.8 L [place] % (Auto) 6.2 Eos % (Auto) 0.1 L Baso % (Auto) 1.0 Neut # (Auto) 6400 H PT 12.1 INR 1.1 APTT 31 ABG pH ABG pCO2 ABG pO2 ABG HCO3 ABG Total CO2 ABG O2 Saturation ABG Base Excess FiO2 Sodium 145 Potassium 4.0 Chloride 107 Carbon Dioxide 23 BUN 15 Creatinine 1.00 Estimated GFR > 60.0 BUN/Creatinine Ratio 15.0 Glucose 132 H Lactate Calcium 9.2 Magnesium 1.8 Total Creatine Kinase 124 CK-MB (CK-2) 2.16 CK-MB (CK-2) Rel Index 1.7 Troponin I 0.013 B-Natriuretic Peptide 147.0 H Procalcitonin 03/28/18 03/28/18 03/29/18 21:38 21:38 00:41 WBC RBC Hgb Hct MCV MCH MCHC RDW Plt Count Neut % (Auto) Lymph % (Auto) [place] % (Auto) Eos % (Auto) Baso % (Auto) Neut # (Auto) PT INR APTT ABG pH 7.42 ABG pCO2 38.1 ABG pO2 71 L ABG HCO3 25 ABG Total CO2 26 ABG O2 Saturation 94 L ABG Base Excess 0.0 FiO2 0.28 Sodium Potassium Chloride Carbon Dioxide BUN Creatinine Estimated GFR BUN/Creatinine Ratio Glucose Lactate 4.0 H Calcium Magnesium Total Creatine Kinase CK-MB (CK-2) CK-MB (CK-2) Rel Index Troponin I B-Natriuretic Peptide Procalcitonin < 0.05 Assessment & Plan Plan: Assessment/Plan Narrative: Acute on chronic respiratory failure (chronic O2 dependence) Potentially multi-factorial, significant underlying pulmonary history vs anemia vs anxiety vs acidosis vs cardiac etiology (ie HF / arrhythmia / valvular disease) - CTA negative for PE - ABG w/o overt acidosis - Continue maintenance steroid dose - Contineu azithromycin - Blood Cx and sputum Cx re: tachypnea, mwcrd-[id number] respiratory failure, elevated lactate, concern for sepsis [id number] COPD exacerbation - See plan of care for 'acute on chronic respiratory failure' Dyspnea Consider alternative causes of dyspnea, consider cardiac origin Concern for right ventricular failure in the setting of peripheral edema and ANALY. PAH? - echo Elevated Lactate - Trend Lactate Q3H until WNL - Gentle IVF - Treat hypoxia / hypercapnia Dysphagia per patient's report, also reveals that in the past had a barium study with abnormal findings (but unable to provide details) - Consult speech for swallow eval - Keep NPO Anemia, stable BPH, controlled w/ alfuzosin
[2018-03-29 01:49] LABS: Reflexed Lactate in 2 Hours Y
[2018-03-29 01:58] LABS: HCO3 ABG 25 mmol/L (23-27); Oxygen Saturation ABG 94 % (95-100); PCO2 ABG 38.1 mmHg (35-45); PO2 ABG 71 mmHg (80-105); TCO2 ABG 26 mmol/L (23-27); pH ABG 7.42 (7.35-7.45)
[2018-03-29 01:59] LABS: Fractionated Inspired Oxygen 0.28
[2018-03-29 02:11] LABS: Lactate 2HR (Lactic Acid Rflx) 1.8 mmol/L (0.7-2.1)
[2018-03-29] MEDS: SODIUM CHLORIDE 0.9% 1,000 ML 75 ML IV (03:05)
[2018-03-29] MEDS: ALBUTEROL/IPRATROPIUM 3 ML AMPUL INH ×2 (06:26→12:33)
--- NOTE | 2018-03-29 07:52 | PC.NURSE ---
Patient came to floor at 0215. Upon arrival his respiratory rate was 30. After he settled in, his respiratory rate was 19-20.
--- NOTE | 2018-03-29 08:46 | CM.DANOTE ---
DCP: Case received, EMR reviewed and met with patient. Introduced self and role. DCP template completed with information currently available. Patient is a 72 year old male who admitted early this morning via ambulance to the care of the hospitalist team. PCP: Medicare/[facility]. Patient came to hospital with symptoms of shortness of breath. Patient carries a diagnosis of COPD exacerbation. Has home oxygen as well. Spoke to patient. Is alert and oriented, lives along in [place]. Has a son that lives in [place]. P: DCP to continue to follow closely. Patient was here recently. Consult with therapy team, as well as respiratory team as well. Maryana Cueto RN/Hot [employer] Furnace Installer Repairer
[2018-03-29] MEDS: HEPARIN 5,000 UNIT/ML VIAL 5000 UNIT SUBCUT ×2 (09:35→19:46)
--- NOTE | 2018-03-29 11:13 | PC.NURSE ---
Day shift: Pt c/o feeling like his BP was elevated. BP checked by RUBBER MOLD MAKER at this time was 118/81. VS WNL. Denies any pain.
--- NOTE | 2018-03-29 11:41 | CM.DPC ---
DCP Cont: Called and spoke to patient's son, Zeus, with update. Stated that he did not know that son was back in hospital. Son stated that patient was anxious because he just sold his house, and also stated that he might have to live with him for a while until he finds a new place. Met with patient again, and discussed home health. Stated that he had recent home health with [facility], for physical therapy. Called [facility], and spoke to Michelle. Stated that he was recently on service there. Discussed nursing, and stated that they could see him. Patient also consenting to this. Have [id number] signed already. P: Continue to assess. Plan is to discharge home with home health nursing services. Maryana Cueto RN/Care Management Assistant
--- NOTE | 2018-03-29 13:06 | P.PN_ITS ---
Subjective Date Patient Seen: 03/29/18 Time Patient Seen: 12:58 Interval history: Follow up on COPD exacerbation Patient seen at bedside. Doing well. No overnight events. Saturating well on baseline O2 NC. No wheezing. No tachycardia. No fevers or leukocytosis. Unable to explain patient's symptoms other than anxiety Exam Vital Signs (past 8 hours): - 03/29/18 05:55 03/29/18 06:30 03/29/18 07:30 Temperature 98.1 F 97.7 F Pulse Rate 85 22 L 73 Respiratory Rate 18 22 Blood Pressure 137/84 150/72 H Pulse Oximetry 94 96 96 03/29/18 10:18 03/29/18 11:00 03/29/18 12:33 Temperature 97.8 F Pulse Rate 82 Respiratory Rate 20 Blood Pressure 118/81 Pulse Oximetry 96 96 97 Oxygen Delivery Method Nasal Cannula Oxygen Flow Rate 2 Narrative Exam Narrative: General: No acute distress, AAO x3 HEENT: PERRLA bilaterally, dry mucous membranes Neck: Supple, no LAD or JVD CV: Regular rate rhythm, no murmurs or gallops Respiratory: Lungs CTA BL, no wheezes appreciated GI: Positive bowel sounds, no organomegaly, nontender to palpation Musculoskeletal: Able to move all extremities bilaterally, and ambulate freely Skin: Generalized pallor, 1+ pitting edema in lower extremities bilaterally up to knees Neuro: No focal deficits, cranial nerves 2-12 were intact Psych: Mood is appropriate, patient is able to make his own decisions Objective Labs Result Diagrams: 03/28/18 21:38 03/28/18 21:38 Labs: Laboratory Results - last 24 hr 03/28/18 03/28/18 03/28/18 21:38 21:38 21:38 WBC 7.6 RBC 3.63 L Hgb 11.0 L Hct 32.9 L MCV 90.5 MCH 30.4 MCHC 33.5 RDW 13.8 Plt Count 154 Neut % (Auto) 84.9 H Lymph % (Auto) 7.8 L [place] % (Auto) 6.2 Eos % (Auto) 0.1 L Baso % (Auto) 1.0 Neut # (Auto) 6400 H PT 12.1 INR 1.1 APTT 31 ABG pH ABG pCO2 ABG pO2 ABG HCO3 ABG Total CO2 ABG O2 Saturation ABG Base Excess FiO2 Sodium 145 Potassium 4.0 Chloride 107 Carbon Dioxide 23 BUN 15 Creatinine 1.00 Estimated GFR > 60.0 BUN/Creatinine Ratio 15.0 Glucose 132 H Lactate Calcium 9.2 Magnesium 1.8 Total Creatine Kinase 124 CK-MB (CK-2) 2.16 CK-MB (CK-2) Rel Index 1.7 Troponin I 0.013 B-Natriuretic Peptide 147.0 H Procalcitonin 03/28/18 03/28/18 03/29/18 21:38 21:38 00:41 WBC RBC Hgb Hct MCV MCH MCHC RDW Plt Count Neut % (Auto) Lymph % (Auto) [place] % (Auto) Eos % (Auto) Baso % (Auto) Neut # (Auto) PT INR APTT ABG pH 7.42 ABG pCO2 38.1 ABG pO2 71 L ABG HCO3 25 ABG Total CO2 26 ABG O2 Saturation 94 L ABG Base Excess 0.0 FiO2 0.28 Sodium Potassium Chloride Carbon Dioxide BUN Creatinine Estimated GFR BUN/Creatinine Ratio Glucose Lactate 4.0 H Calcium Magnesium Total Creatine Kinase CK-MB (CK-2) CK-MB (CK-2) Rel Index Troponin I B-Natriuretic Peptide Procalcitonin < 0.05 03/29/18 01:52 WBC RBC Hgb Hct MCV MCH MCHC RDW Plt Count Neut % (Auto) Lymph % (Auto) [place] % (Auto) Eos % (Auto) Baso % (Auto) Neut # (Auto) PT INR APTT ABG pH ABG pCO2 ABG pO2 ABG HCO3 ABG Total CO2 ABG O2 Saturation ABG Base Excess FiO2 Sodium Potassium Chloride Carbon Dioxide BUN Creatinine Estimated GFR BUN/Creatinine Ratio Glucose Lactate 1.8 Calcium Magnesium Total Creatine Kinase CK-MB (CK-2) CK-MB (CK-2) Rel Index Troponin I B-Natriuretic Peptide Procalcitonin Assessment & Plan Plan: Assessment/Plan Narrative: 1. Acute on chronic COPD/asthma exacerbation -No more wheezing detected -CTA PE done and negative for PE or PNA or pleural effusions that could explain SOB and tachycardia -received [facility] emergency department, will continue prednisone 40 mg daily x3 days total -will start patient on azithromycin 500 mg x2 days -continue xopinex as patient is tachycardic after treatments -monitor for improvement. Consider anxiety medications 2. Tachycardia -EKG showed normal sinus rhythm with posterior fascicular block -possibly from mild dehydration -continue gentle hydration at this time 3. Lactic Acidosis - Possibly from dehydration, now resolved - CT chest with no infection, UA no infection - blood and sputum cx pending - Continue light hydration 4. BPH -continue alfuzosin 5. B12 deficiency anemia -hemoglobin 11.0, hematocrit 32.9 on admission -resume cyanocobalamin Patient wishes to be full code 20 min spent evaluating and providing care for the patient Quality VTE Deep Vein Thrombosis/Pulmonary Embolism Present on Admission: Yes
--- NOTE | 2018-03-29 15:02 | OT.IP.TRT ---
Occupational Therapy Treatment Note M3 OT- IP Subjective and Pain Start: 03/29/18 14:55 Freq: Status: Active Protocol: Document 03/29/18 14:56 [facility] (Rec: 03/29/18 15:00 [facility] [id number]) OT- Subjective Occupational Therapy Visit Type Type Patient Refusal Notes Pt stating very tired and not wanting to get up at this time due to too tired. Therefore to see pt tomorrow for Ot eval .
--- NOTE | 2018-03-29 16:00 | OT.IP.TRT ---
Occupational Therapy Treatment Note M3 OT- IP Subjective and Pain Start: 03/29/18 14:55 Freq: Status: Active Protocol: Document 03/29/18 15:58 [facility] (Rec: 03/29/18 16:00 [facility] [id number]) OT- Subjective Occupational Therapy Visit Type Type Administrative Note Notes PT able to work with pt and was independent with mobility. Able to speak to pt and determined that no OT eval needed at this time. Pt good understanding to take it slow, ask for assist and family to help him as needed. Therefore discharge OT eval order.
--- NOTE | 2018-03-29 16:31 | PT.IIE ---
Surgical History (Last Reviewed 03/29/18 @ 03:57 by TYRA Rose) H/O sinus surgery (Chronic) Status post right foot surgery (Chronic) Medical History (Last Reviewed 03/29/18 @ 03:57 by TYRA Rose) COPD (chronic obstructive pulmonary disease) (Acute) Asthma (Acute) BPH (benign prostatic hyperplasia) (Chronic) Bilateral leg cramps (Chronic) Chronic anemia (Chronic) Essential tremor (Chronic) Physical Therapy Inpatient Evaluation/Re-Eval M1 PT/OT-IP Prior Functional Status Start: 03/29/18 13:31 Freq: NEEDED Status: Active Protocol: Document 03/29/18 16:00 RS (Rec: 03/29/18 16:31 RS [id number]) Medical Review Prior Functional Status Medical History Reviewed Yes Communication no known deficits Mobility and Gait independent Activities of Daily Living and IADL's independent Prior Functional Level (Other details) uses 2L O2 at baseline, turns it up for activity. denies falls. Social History Household Members none Living Arrangements House Number of Floors (Floors) One Floor Employment Status Retired M1 PT/OT-IP Prior Functional Status Start: 03/29/18 14:55 Freq: NEEDED Status: Active Protocol: Document 03/29/18 16:00 RS (Rec: 03/29/18 16:31 RS [id number]) M2 PT-IP Current Condition Start: 03/29/18 13:31 Freq: NEEDED Status: Active Protocol: Document 03/29/18 16:00 RS (Rec: 03/29/18 16:31 RS [id number]) Physical Therapy Current Condition Current Condition Evaluation Date 03/29/18 Treatment Diagnosis SOB/ESCOBEDO Onset Date 03/25/18 M3 PT-IP Subjective Start: 03/29/18 13:31 Freq: NEEDED Status: Active Protocol: Document 03/29/18 16:00 RS (Rec: 03/29/18 16:31 RS [id number]) Subjective Physical Therapy Visit Type Type Initial Evaluation Visit Start Time 15:15 Visit Stop Time 16:00 Total Visit Minutes 45 Physical Therapy Visit Comments Patient Comments Pt reports frustration with not finding out what's causing his SOB and tachycardia, but is agreeable to work with PT. Patient Goals Get answers Therapy Pain Assessment Pain When Pain Assessed During Mobility Pain Present Pain Present Denied Pain M4 PT-IP Mobility and Gait Start: 03/29/18 13:31 Freq: NEEDED Status: Active Protocol: Document 03/29/18 16:00 RS (Rec: 03/29/18 16:31 [id number]) PT-Bed Mobility Assessment Supine to Sit Supine to Sit Independent Sit to Supine Sit to Supine Independent PT-Transfer Assessment Sit to and From Stand Sit to and from Stand Standby Assistance Equipment Transfer Assistive Device None Transfers Transfer Destination Chair Transfer Technique walked Transfer Ability Level of Assist Standby Assistance Comments Mobility Comments Stand by assist was only needed to help manage the IV line, otherwise pt would be independent. Gait Assessment Gait Gait Assistance Required: Standby Assistance Distance (Feet) 45 Assistive Devices Assistive Device None Gait Deviations General Gait Pattern Within Normal Limits Comments Gait Comments SBA was only needed to help manage the IV line, otherwise pt would be independent for household distances. PT-Balance Assessment Sitting Balance and Reactions Static Sitting Balance Ability Normal Dynamic Sitting Balance Ability Normal Standing Balance and Reactions Static Standing Balance Ability Normal Dynamic Standing Balance Ability Good M5 PT-IP Objective Assessments Start: 03/29/18 13:31 Freq: NEEDED Status: Active Protocol: Document 03/29/18 16:00 RS (Rec: 03/29/18 16:31 [id number]) Orientation Orientation/Cognition Level of Alertness Alert Orientation Name Age Birthday Month Date Year Day of Week Place Situation Language Function Ability No Deficits Noted Safety Awareness Understands Safety Issues Memory Description No Deficits Noted Gross Range of Motion Upper Extremity ROM Assessment Within Functional Limits Lower Extremity ROM Assessment Within Functional Limits Strength Upper Extremity Strength Assessment Within Functional Limits Lower Extremity Strength Assessment Within Functional Limits M6 PT-IP Treatment Start: 03/29/18 13:31 Freq: NEEDED Status: Active Protocol: Document 03/29/18 16:00 RS (Rec: 03/29/18 16:31 [id number]) Physical Therapy Treatment Education Education Provided Safety M7 PT-IP Assessment and Plan Start: 03/29/18 13:31 Freq: NEEDED Status: Active Protocol: Document 03/29/18 16:00 RS (Rec: 03/29/18 16:31 [id number]) PT Summary Assessment and Plan Potential Rehabilitation Potential Good Status of Condition at Evaluation Stable Summary Impairments Activity Tolerance Progress Towards Goals Safe For Discharge Assessment Summary Pt present with limitations in his mobility related only to pulmonary status. Pt able to walk safely at household levels and only need SBA at this time to help manage the IV line. Once this is discontinued then pt can be ind in his room, SBA in reid for portable oxygen management . Pt is safe to discharge directly home with HHPT once medically ready. Pt is safe to continue mobilizing with nursing staff and has no additional acute PT needs. Acute PT will sign off with the anticipation that pt will continue to mobilize with nursing staff and continue with skilled therapies once at home. Pt understands he should initiate gait several times a day for short distances. Frequency of Treatment Frequency Of Treatment Discharge Recommendations To Nursing Amount of Assist Needed Standby Assistance Discharge Recommendations PT Discharge Recommendations Home Home Health
--- NOTE | 2018-03-29 17:11 | ST.IPIE ---
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 Patient was made NPO and a swallow evaluation was ordered due to complaints of trouble swallowing. Subjective Observations Patient sitting up in bed. No family present in room. Patient alert, oriented and conversant. He reports he had a swallow study done out-of- state about 10 years ago and was told the valve that opens and closes sometimes stays open. For this reason, he says , he is careful when he eats. Able to self-feed despite tremors. Evaluation Liquids Trialed Thin Solids Trialed Puree Dysphagia Mechanical Dysphagia Advanced Administration Type Tea Spoon Controlled Cup Sip Straw Self-Feeding Oral Impairment WFL Oral Phase Comments Natural dentition with missing teeth on the left side requiring patient masticate all food on right side. Oral mechanism was unremarkable with structures functional for speech and mastication. No oral impairments observed. Pharyngeal Impairment Mildly Impaired Pharyngeal Phase Comments Patient exhibited coughing with one bite of cracker, which he had previously reported was problematic for him at home due to crumbly texture. Despite this, patient reports he enjoys crackers and eats them often at home. No signs or symptoms of aspiration observed during trials of thin liquids. He denied any difficulty with liquids at home. Findings Impressions Patient is at increased risk for aspiration given 10+ year history of dysphagia and recurrent pneumonia; however, presence of COPD makes differential diagnosis of pneumonia type difficult. We discussed recommendations for repeat instrumental assessment ; however, patient declined at this time saying he was not very concerned about his swallowing in the present moment given other medical and home issues. He agreed to consider an outpatient MBS in the future and was instructed to follow-up with his PCP. Diet Recommendations Liquids Order Thin Diet Order Dysphagia Advanced Medication Recommendations As Tolerated Additional Dietary Needs Reminders to Use Strategies Aspiration Precautions Recommended Precautions Upright at 90 Degrees Alternate Liquids/Solids Small Bites/Sips Double Swallow Treatment Plan Placement Recommendations after Home Discharge Appropriate for Therapy Yes Therapy Recommendations Follow up with patient 1-2x in inpatient setting to ensure swallow safety and for ongoing education of recommendations and instrumental assessment in the future. Dysphagia Goals The client will demonstrate the ability to adequately self -monitor swallowing skills and perform appropriate compensatory techniques with out cues to reduce s/s of aspiration.
[2018-03-29] MEDS: LEVALBUTEROL 0.63 MG/3 ML NEB INH (19:36)
--- NOTE | 2018-03-29 23:07 | PC.NURSE ---
1500- assumed care of pt form outgoing shift. Pt sitting in chair. pt has pretty bad tremors and is pretty shaky, pt states that it is all from the breathing treatments. Pt is eager to go home. Pt thinks that there is something at his house thats making him have these issues with breathing, as he was discharged yesterday and got home around 6 pm then came back to the ED at 8pm. Pt uses call light. Pt SBA. fluids removed and pt compliant. will continue to monitor pt for safety. pt uses call light. denies pain.
[2018-03-30] MEDS: LEVALBUTEROL 0.63 MG/3 ML NEB INH ×2 (03:17→08:28)
[2018-03-30] MEDS: MORPHINE 2 MG/ML INJ IV (03:59)
[2018-03-30 05:50] VITALS: BP 128/74; PULSE 80; RESP 18; TEMP 36.4; O2SAT 97
[2018-03-30 06:16] LABS: Add Manual Diff / Slide Review NO; Basophils Percent Auto 1.1 % (0-2); Eosinophils Percent Auto 4.2 % (2-4); Hematocrit 33.8 % (41-53); Hemoglobin 11.3 g/dL (13.5-17.5); Lymphocytes Percent Auto 23.2 % (25-40); Mean Corpuscular HGB Conc 33.4 % (30-36); Mean Corpuscular Hemoglobin 30.4 PG (26-34); Mean Corpuscular Volume 91.1 fL (80-100); Monocytes Percent Auto 8.2 % (3-14); Neutrophils Absolute Auto 4100 /uL (3000-5900); Neutrophils Percent Auto 63.3 % (50-75); Platelet Count 171 X10^3/uL (150-400); Red Blood Cell Count 3.71 X10^6/uL (4.5-5.9); Red Cell Distribution Width 13.9 % (11.6-14.8); White Blood Cell Count 6.6 X10^3/uL (4.5-11.0)
[2018-03-30 06:17] LABS: BUN Creatinine Ratio 15.6 (6-22); Blood Urea Nitrogen 14 mg/dL (9-20); Carbon Dioxide 30 mmol/L (22-32); Chloride 108 mmol/L (98-107); Estimated Glomerular Filt Rate > 60.0 mL/min (>60); Glucose 91 mg/dL (80-110); HEMOLYSIS < 15 (0-50); Potassium 3.7 mmol/L (3.4-5.1); Sodium 145 mmol/L (137-145)
[2018-03-30 08:13] VITALS: BP 142/102; PULSE 76; RESP 15; TEMP 36.4; O2SAT 98
[2018-03-30 08:33] VITALS: PULSE 73; RESP 18; O2SAT 99
[2018-03-30] MEDS: predniSONE 20 MG TABLET 40 MG PO (09:09)
[2018-03-30] MEDS: HEPARIN 5,000 UNIT/ML VIAL 5000 UNIT SUBCUT (09:10)
--- NOTE | 2018-03-30 09:27 | PM.DS.1 ---
History of Present Illness Date Patient Seen: 03/30/18 Time Patient Seen: 09:28 Chief complaint: Shortness of breath Narrative: 72-year-old male with past medical history of COPD/asthma on 3 L oxygen at home, B12 deficiency anemia, and BPH presented to emergency department with shortness of breath. Patient was discharged from the hospital 4 hrs prior to this presentation, during which time he was treated for COPD exacerbtion. Patient states that when he returned home, he went down to work on his computer. When he sat down, patient started experiencing severe shakes, shortness of breath, gasping for breath, and severe anxiety. Patient attempted to use nebulizer treatment which he was discharged with from the hospital, however that did not improve his symptoms and patient came to emergency department again. Patient complained of palpitations, and elevated heart rate while walking. Denied any nausea, vomiting, diarrhea, constipation. Denied any fevers, or chills. Patient did state that she was severely shaky during the episodes of shortness of breath. Discharge Providers Date of admission: 03/29/18 01:06 Consults: 03/28/18 21:08 Consult to Respiratory Therapy Evaluate & Treat Comment: Physician Instructions: Evaluate and treat 03/29/18 01:22 Consult to Speech Therapy Evaluate & Treat Comment: evaluate for dysphagia, concern for aspiration Physician Instructions: Evaluate and treat 03/29/18 11:37 Consult to Occupational Therapy Evaluate & Treat Comment: Physician Instructions: Evaluate and treat Consult to Physical Therapy Evaluate & Treat Comment: Physician Instructions: Evaluate and Treat Discharge provider: Hillary Wall MD Discharge Date: 03/30/18 Summary Discharge Diagnosis: Acute on Chronic COPD exacerbation, resolved Tachycardia, due to dehydation, now resolved Lactic Acidosis, resolved BPH, on alfuzosin B12 Deficiency Anemia Hospital Course: In the emergency department, patient was not wheezy and saturations were adequate. However every time patient tried to get up became tachycardic with heart rate between 100 and 110. Labs were all benign except for a lactic acid which was elevated at 4.0. CTA PE performed, which was negative for PE, with clear lungs, no pleural effusions or pneumothorax. Patient again was given Solu-Medrol, duo nebs, IV fluids, and admitted to acute care unit for further treatment tachycardia and COPD exacerbation. While on the floor, patient was resumed his azithromycin 500 mg daily medication, prednisone 40 mg p.o. daily, and was started on Xopinex q.6 hours. Echocardiogram was performed which showed ejection fraction 60-65%, with no focal wall motion abnormality. Patient was given mild hydration IVF at 75 cc an hour. Physical therapy was consulted, who were able to ambulate with patient, and his heart rate remained below 100. Patient has a radiation has improved dramatically on Xopenex, and patient was back to saturating 93-94% on his home oxygen 3 L. patient will be discharged home with Xopinex prescription, and instructions to complete his course of prednisone for 2 more days. Patient already completed a course of azithromycin while inpatient. I have high suspicion the patient has panic episodes during the shortness of breath events, and I believe patient would benefit from panic attack therapy with paroxetine, which I will give patient for 30 days and have a follow-up with his primary care doctors for continuation of therapy. Status at Discharge Functional status at discharge: independent ambulation Overall status at discharge: patient is back to baseline Time Spent with Patient Less than 30 minutes Exam Vital Signs (past 8 hours): - 03/30/18 05:50 03/30/18 08:13 03/30/18 08:33 Temperature 97.5 F L 97.5 F L Pulse Rate 80 76 73 Respiratory Rate 18 15 18 Blood Pressure 128/74 142/102 H Pulse Oximetry 97 98 99 Oxygen Delivery Method Nasal Cannula Oxygen Flow Rate 4 Narrative Exam Narrative: General: No acute distress, AAO x3 HEENT: PERRLA bilaterally, dry mucous membranes Neck: Supple, no LAD or JVD CV: Regular rate rhythm, no murmurs or gallops Respiratory: Lungs CTA BL, no wheezes appreciated GI: Positive bowel sounds, no organomegaly, nontender to palpation Musculoskeletal: Able to move all extremities bilaterally, and ambulate freely Skin: Generalized pallor, 1+ pitting edema in lower extremities bilaterally up to knees Neuro: No focal deficits, cranial nerves 2-12 were intact Psych: Mood is appropriate, patient is able to make his own decisions Objective Labs Result Diagrams: 03/30/18 05:43 03/30/18 05:43 Labs: Laboratory Results - last 24 hr 03/30/18 03/30/18 05:43 05:43 WBC 6.6 RBC 3.71 L Hgb 11.3 L Hct 33.8 L MCV 91.1 MCH 30.4 MCHC 33.4 RDW 13.9 Plt Count 171 Neut % (Auto) 63.3 D Lymph % (Auto) 23.2 L Boyle % (Auto) 8.2 Eos % (Auto) 4.2 H Baso % (Auto) 1.1 Neut # (Auto) 4100 Sodium 145 Potassium 3.7 Chloride 108 H Carbon Dioxide 30 BUN 14 Creatinine 0.90 Estimated GFR > 60.0 BUN/Creatinine Ratio 15.6 Glucose 91 Calcium 9.0 Discharge Plan Discharge Plan Discharge Problem: Chronic obstructive pulmonary disease Discharge Med Rec/Prescriptions Prescriptions: New levalbuterol HCl [Xopenex] 0.63 mg/3 mL Solution For Nebulization 0.63 mg INH [id number] Qty: 30 RF: 0 paroxetine HCl 10 mg tablet 10 mg PO DAILY Qty: 30 RF: 0 Continue albuterol sulfate 90 mcg/actuation Hfa Aerosol Inhaler 2 puff Inhalation BID RF: 0 albuterol sulfate 2.5 mg /3 mL (0.083 %) Solution For Nebulization 3 ml Inhalation BID RF: 0 alfuzosin 10 mg Tablet Extended Release 24 Hr 10 mg PO DAILY RF: 0 olodaterol 2.5 mcg/actuation Mist 2 puff Inhalation QDAY RF: 0 omeprazole 20 mg Capsule,Delayed Release(Dr/Ec) 20 mg PO BID Qty: 0 RF: 0 cyanocobalamin-cobamamide [B12] 5,000-100 mcg Lozenge 1,000 mg Sublingual DAILY RF: 0 azithromycin 250 mg tablet See Label Instructions .ROUTE .COMPLEX Qty: 6 RF: 0 ibuprofen 800 mg Tablet 800 mg PO TID PRN (Reason: pain) RF: 0 potassium gluconate 500 mg (83 mg) Tablet 500 mg PO DAILY RF: 0 prednisone 20 mg Tablet 40 mg PO DAILY Qty: 8 RF: 0 Discontinued ipratropium-albuterol 0.5 mg-3 mg(2.5 mg base)/3 mL Solution For Nebulization 3 ml INH 0700,1500,2300 Qty: 30 RF: 0 Discharge Orders: Discharge (Order); Ordered 03/30/18 Ordered By: Hillary Wall Provider Discharge Instructions Diet: Regular Liquid consistency: Normal/Thin Food texture: Blenderized or pureed Discharge Data Attending Provider: Romulo Dean Admit Date/Time: 03/29/18 01:06 Quality VTE Deep Vein Thrombosis/Pulmonary Embolism Present on Admission: Yes
--- NOTE | 2018-03-30 11:07 | CM.DPC ---
DCP Cont: Patient is to be discharged home today. Will fax over notes and face to face to [facility]. Michelle at [facility] is familiar with patient since he has used services recently. P: Discharge today home with [facility] nursing. Maryana Cueto RN/Well Surveying Engineer
--- NOTE | 2018-03-30 11:07 | CM.DPC ---
D/C packet faxed to [facility] per [place]
--- NOTE | 2018-03-30 12:40 | PC.NURSE ---
Day shift: Pt left unit w/ student RN at 1245 to get in a Taxi for ride home. Paperwork signed and all questions answered. He has all personal belongings. Discussed with him at length about the importance of taking his medications as directed. He said that he would.
== END 2018-03-30 12:43 ==
LOC: ED 21:01 → AC 03-29 01:06
PROVIDERS: Internal Medicine; Admitting Provider Nurse Practitioner Gerontology; Emergency Provider Emergency Medicine; Visit Provider Nurse Practitioner Gerontology
DX: J44.1 Chronic obstructive pulmonary disease with (acute) exacerbation (principal); R06.02 Shortness of breath; Z87.891 Personal history of nicotine dependence; E86.0 Dehydration; E87.2 Acidosis; N40.0 Benign prostatic hyperplasia without lower urinary tract symptoms; D51.3 Other dietary vitamin B12 deficiency anemia
CPT/HCPCS: 36415; 36600; 71275; 80048; 81003; 82550; 82553; 82805; 83605; 83735; 83880; 84145; 84484; 85025; 85610; 85730; 87040; 87070; 87205; 92610; 93005; 93010; 93306; 94640; 94760; 94762; 96360; 97116; 97161; 97530; 99284; 99285; G0378; J1644; J2270; J7614; Q9967